=== PATIENT | male | born 1940 | race Caucasian/White ===

== ENCOUNTER 2021-07-25 00:54 | Outpatient (RCR) | payer MEDICARE, SELFPAY ==
[2021-07-04 07:39] LABS: Abs Immature Grans 0.02 10^3/uL (0.0-0.06); Absolute Basophil Count 0.05 10^3/uL (0.0-0.2); Absolute Eosinophil Count 0.15 10^3/uL (0.0-0.7); Absolute Lymphocyte Count 1.97 10^3/uL (1.2-3.4); Absolute Monocyte Count 0.91 10^3/uL (0.1-0.8); Absolute Neutrophil Count 5.23 10^3/uL (1.2-6.7); Basophils % 0.6; Eosinophils % 1.8; HCT 47.4 % (40.0-50.0); HGB 15.1 g/dL (13.5-17.5); Immature Grans % 0.2; Lymphocytes % 23.6; MCH 32.3 pg (27.0-33.0); MCHC 31.9 % (32.0-36.0); MCV 101.5 fL (80-95); MPV 10.6 fL (8.0-11.0); Monocytes % 10.9; Neutrophils % 62.9; Nucleated RBC 0 %; Platelet Count 228 10^3/uL (130-400); RBC 4.67 10^6/uL (4.36-5.78); RDW 12.7 % (11.8-14.1); RDW-SD 47.8 fL; WBC 8.33 10^3/uL (4.4-10.8)
[2021-07-04 07:50] LABS: ALT 31 U/L (16-63); AST 24 U/L (15-37); Albumin 3.6 g/dL (3.4-5.0); Alkaline Phosphatase 125 U/L (46-116); Anion Gap 6.7 mmol/L (3-11); BUN 16 mg/dL (7-18); Bilirubin, Total 1.3 mg/dL (0.2-1.0); CO2 28.3 mmol/L (21.0-32.0); CREATININE 1.1 mg/dL (0.70-1.30); Chloride 108 mmol/L (98-107); Glucose 109 mg/dL (74-106); Magnesium 1.9 mg/dL (1.8-2.4); Potassium 3.9 mmol/L (3.5-5.1); Sodium 143 mmol/L (136-145); Total Protein 7.3 g/dL (6.4-8.2)
[2021-07-11] MEDS: Normal Saline Flush 10 ML SYR IVP (09:00)
[2021-07-11 09:21] LABS: Abs Immature Grans 0.07 10^3/uL (0.0-0.06); Absolute Basophil Count 0.03 10^3/uL (0.0-0.2); Absolute Eosinophil Count 0.09 10^3/uL (0.0-0.7); Absolute Lymphocyte Count 0.52 10^3/uL (1.2-3.4); Absolute Neutrophil Count 3.25 10^3/uL (1.2-6.7); Basophils % 0.7; Eosinophils % 2.2; HCT 44.2 % (40.0-50.0); HGB 14.5 g/dL (13.5-17.5); Immature Grans % 1.7; Lymphocytes % 12.5; MCH 33.3 pg (27.0-33.0); MCHC 32.8 % (32.0-36.0); MCV 101.4 fL (80-95); MPV 10.9 fL (8.0-11.0); Monocytes % 4.8; Neutrophils % 78.1; Nucleated RBC 0 %; Platelet Count 205 10^3/uL (130-400); RBC 4.36 10^6/uL (4.36-5.78); RDW 12.2 % (11.8-14.1); RDW-SD 46.3 fL; WBC 4.16 10^3/uL (4.4-10.8)
[2021-07-11 09:43] LABS: ALT 24 U/L (16-63); AST 8 U/L (15-37); Albumin 3.5 g/dL (3.4-5.0); Alkaline Phosphatase 112 U/L (46-116); Anion Gap 5.9 mmol/L (3-11); BUN 17 mg/dL (7-18); Bilirubin, Total 1.6 mg/dL (0.2-1.0); CO2 29.1 mmol/L (21.0-32.0); Calcium 8.7 mg/dL (8.5-10.1); Chloride 107 mmol/L (98-107); Glucose 102 mg/dL (74-106); Magnesium 1.9 mg/dL (1.8-2.4); Potassium 4.8 mmol/L (3.5-5.1); Sodium 142 mmol/L (136-145); Total Protein 7.1 g/dL (6.4-8.2)
[2021-07-18] MEDS: Normal Saline Flush 10 ML SYR IVP (09:02)
[2021-07-18 09:08] LABS: Abs Immature Grans 0.02 10^3/uL (0.0-0.06); Absolute Basophil Count 0.02 10^3/uL (0.0-0.2); Absolute Eosinophil Count 0.05 10^3/uL (0.0-0.7); Absolute Lymphocyte Count 0.42 10^3/uL (1.2-3.4); Absolute Monocyte Count 0.16 10^3/uL (0.1-0.8); Absolute Neutrophil Count 0.62 10^3/uL (1.2-6.7); Basophils % 1.6; Eosinophils % 3.9; HCT 46.1 % (40.0-50.0); Immature Grans % 1.6; Lymphocytes % 32.6; MCH 32.8 pg (27.0-33.0); MCHC 32.5 % (32.0-36.0); MCV 100.7 fL (80-95); MPV 10.6 fL (8.0-11.0); Monocytes % 12.4; Neutrophils % 47.9; Nucleated RBC 0 %; RBC 4.58 10^6/uL (4.36-5.78); RDW 11.9 % (11.8-14.1); RDW-SD 44.6 fL
[2021-07-18 09:16] LABS: WBC 1.29 10^3/uL (4.4-10.8)
[2021-07-18 09:27] LABS: Diff Comment Agrees w/ Instrument; Platelet Count 198 10^3/uL (130-400)
[2021-07-18 09:28] LABS: RBC Morphology Normal
[2021-07-18 09:33] LABS: ALT 25 U/L (16-63); AST 26 U/L (15-37); Albumin 3.7 g/dL (3.4-5.0); Alkaline Phosphatase 122 U/L (46-116); Anion Gap 9.1 mmol/L (3-11); BUN 14 mg/dL (7-18); Bilirubin, Total 1.7 mg/dL (0.2-1.0); CO2 27.9 mmol/L (21.0-32.0); Calcium 8.9 mg/dL (8.5-10.1); Chloride 107 mmol/L (98-107); Glucose 85 mg/dL (74-106); Magnesium 1.7 mg/dL (1.8-2.4); Potassium 4.1 mmol/L (3.5-5.1); Sodium 144 mmol/L (136-145); Total Protein 7.8 g/dL (6.4-8.2)
[2021-07-25 08:45] LABS: Abs Immature Grans 0.01 10^3/uL (0.0-0.06); Absolute Basophil Count 0.04 10^3/uL (0.0-0.2); Absolute Eosinophil Count 0.02 10^3/uL (0.0-0.7); Absolute Lymphocyte Count 0.49 10^3/uL (1.2-3.4); Absolute Monocyte Count 0.69 10^3/uL (0.1-0.8); Absolute Neutrophil Count 1.12 10^3/uL (1.2-6.7); Basophils % 1.7; Eosinophils % 0.8; HCT 42.1 % (40.0-50.0); HGB 13.5 g/dL (13.5-17.5); Immature Grans % 0.4; Lymphocytes % 20.7; MCH 32.8 pg (27.0-33.0); MCHC 32.1 % (32.0-36.0); MCV 102.2 fL (80-95); MPV 9.4 fL (8.0-11.0); Monocytes % 29.1; Neutrophils % 47.3; Nucleated RBC 0 %; Platelet Count 237 10^3/uL (130-400); RBC 4.12 10^6/uL (4.36-5.78); RDW 13.2 % (11.8-14.1); RDW-SD 47.9 fL; WBC 2.37 10^3/uL (4.4-10.8)
[2021-07-25 08:56] LABS: ALT 23 U/L (16-63); AST 21 U/L (15-37); Albumin 3.5 g/dL (3.4-5.0); Alkaline Phosphatase 98 U/L (46-116); Anion Gap 8.7 mmol/L (3-11); BUN 11 mg/dL (7-18); Bilirubin, Total 0.9 mg/dL (0.2-1.0); CO2 27.3 mmol/L (21.0-32.0); Calcium 8.9 mg/dL (8.5-10.1); Chloride 112 mmol/L (98-107); Glucose 84 mg/dL (74-106); Magnesium 1.7 mg/dL (1.8-2.4); Sodium 148 mmol/L (136-145); Total Protein 6.9 g/dL (6.4-8.2)
== END 2021-07-31 23:59 | disposition home or self-care (01) ==
LOC: INF 00:54
PROVIDERS: PCP Family Medicine; Visit Provider Internal Medicine Medical Oncology
DX: C34.11 Malignant neoplasm of upper lobe, right bronchus or lung (principal)
CPT/HCPCS: 36415; 80053; 99195; 83735; 85025

== ENCOUNTER 2021-07-25 09:01 | Emergency (ER) | payer MEDICARE, SELFPAY ==
[2021-07-25] VITALS (33 sets, daily range): BP systolic 124–146; BP diastolic 74–105; PULSE 84–129; RESP 11–24; TEMP 36.3; O2SAT 91–100
--- NOTE | 2021-07-25 09:00 | RT.EKG_ITS ---
APPROVED REPORT Exam: Resting ECG Reason for Exam: irregular heart rate Patient Location: E HR:126 bpm ECG Measurements Heart Rate 126 AXIS NJ 59 P 113 QRSd 168 QRS 85 QT 420 T -55 QTc 609 Conclusion Sinus tachycardia...rate> 99 Right bundle branch block...QRSd>120, terminal axis(90,270) likely a-flutter at 126, normal axis, RBBB, no STEMI
--- OUTSIDE RECORDS SUMMARY | 2021-07-25 09:12 | XMS_ITS ---
:1940 Author Care Team Providers Name Role Phone KEVIN MORALES MD Primary Care Provider [phone] Allergies Code Code System Name Reaction Severity Status Onset NKDA ? Medications Name Status Start Date Stop Date ? ? alprazolam 0.5 mg tablet Active ? Not jacquelin ilable Take 1 tablet twice a day by oral route. amlodipine 5 mg tablet Completed ? Take 1 tablet every day by oral route. atorvastatin 40 mg tablet Active ? Not av ailable Take 1 tablet every day by oral route. B Complex Plus Vitamin C Active ? Not jacquelin ilable Take 1 tablet every day by oral route Marcelo Chewable Low Dose Aspirin 81 mg tablet Active ? Not available Chew 1 tablet every day by oral route. Co Q-10 200 mg capsule Active ? Not avail able Take 1 capsule every day by oral route. Eliquis 5 mg tablet Unknown ? Not availabl e Take 1 tablet twice a day by oral route. folic acid 400 mcg tablet Active ? Not av ailable Take 1 tablet every day by oral route. Laxative Completed ? 03/18/2021 melatonin 10 mg tablet Active ? Not avail able Take 1 tablet every day by oral route at bedtime. metoprolol succinate ER 25 mg tablet,extended release 24 hr Acti ve ? Not available Take 1 tablet twice a day by oral route. omeprazole 20 mg capsule,delayed release Active ? Not available Take 1 capsule every day by oral route. propranolol 80 mg tablet Active ? Not jacquelin ilable Take 1 tablet every day by oral route. sennosides 25 mg tablet Active ? Not avai lable Take 1 tablet every day by oral route. Vitamin D3 Active ? Not available vitamin E 400 unit capsule Active ? Not a vailable Take 1 capsule every day by oral route. warfarin 5 mg tablet Completed ? 03/17/2021 Take as directed Xarelto 20 mg tablet Active ? Not availab le TAKE 1 TABLET BY MOUTH EVERY DAY Notes: Med rec completed from pt records from 02/11/2021 as well as from home medications brought in by pts son. Problems Name Status Onset Date Source ? Atrial Flutter Active 03/15/2021 ? Hyperlipidemia Active 03/17/2021 ? Insomnia Active 03/17/2021 ? Essential Hypertension Active 03/17/2021 ? Gastroesophageal Reflux Disease Active 03/17/2021 ? Non-small Cell Lung Cancer Active 06/30/2021 ? Procedures Date Name Performed by ? 10/01/1970 Appendectomy Information not avai lable 03/10/2020 XR, Foot, 3 or More View [facility] Radiology (Internal) [address], [place] [id number] (Work Place) 04/21/2020 XR, Foot, 3 or More View [facility] Radiology (Internal) [address] [place] [id number] ( (Work Place) 03/17/2021 Electrocardiogram [facility] [address] [facility] [address] [place] [address] (Work Place) 03/17/2021 CT, Chest, W/ Contrast [facility] (Internal) [address] [place] [id number] (Work Place) Results Lab Results Date Name Specimen Result Interpretation Description Value Range Status Address ? 03/14/2021 CBC W/ Auto BLD High Wbc 10.9 10*3/uL 5.0-10.0 Final North Diff 10*3/uL [facility] (Internal) : [address] ? ? BLD ? Rbc 4.63 10*6/uL 4.60-6.00 Final N orth 10*6/uL [facility] (Internal) : [address] ? ? BLD ? Hgb 15.2 g/dL 14.0-18.0 Final Nort h g/dL [facility] (Internal) : [address] ? ? BLD ? Hct 46.0 % 41.0-51.0 Final [facility] (Internal) : [address] ? ? BLD High Mcv 99.4 fL 80.0-96.0 Final North fL [facility] (Internal) : [address] ? ? BLD High Mch 32.8 pg 26.0-32.0 Final North pg [facility] (Internal) : [address] ? ? BLD ? Mchc 33.0 g/dL 31.0-35.0 Final Nort h g/dL [facility] (Internal) : [address] ? ? BLD ? Rdw 12.3 % 11.5-14.5 Final North % [facility] (Internal) : [address] ? ? BLD ? Plt 230 10*3/uL 130-450 Final Nort h 10*3/uL [facility] (Internal) : [address] t 03/14/2021 CMP, Serum S ? g/r 104 mg/dL 74-106 Final North or Plasma mg/dL [facility] (Internal) : [address] ? ? S ? Bun 13 mg/dL 9-20 Final North mg/dL [facility] (Internal) : [address] ? ? S ? Crea 0.80 mg/dL 0.66-1.25 Final Nor th mg/dL [facility] (Internal) : [address] t ? ? S ? Ca 9.6 mg/dL 8.4-10.2 Final North mg/dL [facility] (Internal) : [address] t ? ? S ? Na 142 mmol/L 137-145 Final North mmol/L [facility] (Internal) : [address] t ? ? S ? K 4.6 mmol/L 3.5-5.1 Final [place] mmol/L [facility] (Internal) : [address] t ? ? S ? Cl 104 mmol/L 98-107 Final [place] mmol/L [facility] (Internal) : [address] t ? ? S ? Tco2 28.0 mmol/L 22.0-30.0 Final No rth mmol/L [facility] (Internal) : [address] t ? ? S ? Tp 7.7 g/dL 6.3-8.2 Final North g/dL [facility] (Internal) : [address] t ? ? S ? Alb 4.2 g/dL 3.5-5.0 Final [place] g/dL [facility] (Internal) : [address] ? ? S High Tbil 2.4 mg/dL 0.2-1.3 Final [place] mg/dL [facility] (Internal) : [address] t ? ? S ? Alp 117 U/L 38-126 Final [facility] U/L [facility] (Internal) : [address] t ? ? S ? Alt 22 U/L 21-72 U/L Final [facility] (Sgpt) [facility] (Internal) : [address] t ? ? S ? Ast 35 U/L 17-59 U/L Final [facility] (Sgot) [facility] (Internal) : [address] 03/14/2021 Prothrombin BLD ? Pt 82.1 S 9.1-11.7 Final [facility] Time S [facility] (Internal) : [address] ? ? BLD ? Inr 8.14 ? Final [facility] ab (Internal) : [address] 03/14/2021 Differentia BLD ? Polys 67 % 40-75 % Final [facility], Manual, Countr y Blood Hospital L ab (Internal) : [address] ? ? BLD ? Bands 0 % 0-5 % Final [facility] ab (Internal) : [address] ? ? BLD Low Lymphs 15 % 20-50 % Final [facility] (Internal) : [address] ? ? BLD High [place] 16 % 2-10 % Final [facility] ab (Internal) : [address] ? ? BLD ? Eos 2 % 0-6 % Final [facility] (Internal) : [address] ? ? BLD ? Baso 0 % 0-1 % Final [facility] ab (Internal) : [address] ? ? BLD ? Atyp 0 % ? Final [facility] Lymph [facility] (Internal) : [address] ? ? BLD ? Plts, adequate adequate Final [facility] Est. [facility] (Internal) : [address] ? ? BLD ? RBC normal normal Final [facility] Morpholog [facility] (Internal) : [address] 03/14/2021 Neutrophil BLD ? Anc-manu 7.33 10*3/uL ? Final [facility] Count, al [facility] Absolute Hospital Lab (Anc), (Internal) : Blood [address] 03/14/2021 Nlr-manual BLD High Nlr - 4.47 0.00-3.20 Final [facility] Manual [facility] (Internal) : [address] 03/14/2021 Troponin I, S ? Trop <0.06 NG/mL 0.00-0.06 Final [facility] Serum or NG/mL [facility] Plasma Hospital L ab (Internal) : [address] 03/14/2021 BNP (B-type S High Nt-probn 683 pg/mL 0-450 Fi nal [facility] Natriuretic p pg/mL Count ry Peptide), Hospita l Lab Prohormone (Inter nal): N-terminal, [address], [place] Immunoassay , Blood 03/14/2021 Urinalysis, UR ABNORMAL UA-color bloody pale Fin [facility] Dipstick, yellow [facility] L [facility] Micro (Internal) : [address] ? ? UR ABNORMAL UA-appea cloudy clear Final [facility] L ab (Internal) : [address] 03/14/2021 Urinalysis, UR ABNORMAL UA-WBC 10-25 [hpf] 0-3 [hp f] Final [facility] Microscopic Count ry Hospital L ab (Internal) : [address] ? ? UR ABNORMAL UA-RBC >100 [hpf] 0-2 [hpf] Final [facility] L ab (Internal) : [address] ? ? UR ? UA-bacte rare [hpf] none seen Final [facility] katy [hpf] [facility] L [facility] (Internal) : [address] ? ? UR ? UA-epith rare [hpf] none seen Final [facility] [hpf] [facility] L ab (Internal) : [address] ? ? UR ABNORMAL UA-mucus rare [hpf] none seen Final [facility] [hpf] [facility] L [facility] (Internal) : [address] 03/14/2021 Prothrombin BLD High Pt 12.0 S 9.1-11.7 Final [facility] Hospital L ab (Internal) : [address] ? ? BLD ? Inr 1.2 ? Final [facility] ab (Internal) : [address] 03/14/2021 EKG Done by ? No ? ? ? N orth ED observati [facility] recorded. (Major Account Manager al): [address] 03/14/2021 Culture UR ? Final microbiology ? [facility] ([place] [facility]), Hospital Lab Urine (Internal) : [address] Past Encounters 06/29/2021 Essential Hypertension; Anxiety; Atrial Fibrillation; Non-small Cell Lung Cancer Kevin Morales MD: [address] [place] [phone], Ph. 04/28/2021 Lesion of Skin of Left Ear; Essential Hy pertension; Atrial Flutter Kevin Morales MD: [address] [place] [phone], Ph. 03/23/2021 Atrial Flutter; Low Blood Pressure; Dom jill of Left Ear Kevin Morales MD: [address] [place] [phone], Ph. 03/17/2021 Atrial Flutter; Hemoptysis; Pneumonia; T achycardia Kevin Morales MD: [address] [place] [phone], Ph. 04/21/2020 Pain in Right Foot RANDALL BasurtoC: [address] [place] [address], [facility], [place] [phone], Ph. 03/10/2020 Injury of Foot Beverley Ayala PA-C: [address] [place] [address] [address], [address], [place] [phone], Ph. Social History Tobacco Smoking Status Former Smoker Notes: quit 20 10 Vaccine List Vaccine Type COVID-19, mRNA, LNP-S, PF, 100 mcg/0.5 m L dose 11/30/2020 12/28/2020 influenza, seasonal, injectable 06/10/2020 pneumococcal conjugate PCV 13 03/10/2016 Plan of Care Reminders Provider Appointments None ? ? recorded. Lab None ? ? recorded. Referral None ? ? recorded. Procedures None ? ? recorded. Surgeries None ? ? recorded. Imaging None ? ? recorded. Vitals 06/29/2021 01:40PM Follow Up 20 Height Weight BMI Blood Pressure 175.26 cm 102.77 kg 33.5 kg/m2 120/70 mm[Hg] 04/28/2021 01:20PM Follow Up 20 Height Weight BMI Blood Pressure 175.26 cm 103.43 kg 33.7 kg/m2 120/74 mm[Hg] 03/23/2021 01:40PM Follow Up 20 Height Weight BMI Blood Pressure 175.26 cm 101.24 kg 33 kg/m2 110/70 mm[Hg] 03/17/2021 01:20PM New Patient 40 Height Weight BMI Blood Pressure 175.26 cm 102.51 kg 33.4 kg/m2 118/88 mm[Hg] 04/21/2020 11:00AM Follow Up 15 Height Weight BMI Blood Pressure 175.26 cm 03/10/2020 09:00AM Consult 30 Height Weight BMI Blood Pressure 175.26 cm 101.6 kg 33.1 kg/m2 128/74 mm[Hg]
--- OUTSIDE RECORDS SUMMARY | 2021-07-25 09:12 | XMS_ITS | Encounter Summary ---
:1940 Author Care Team Providers Name Role Phone Kevin Morales MD Primary Care Provider [phone] Reason for Visit Essential hypertension; Hyperlipidemia; reflux/GERD Assessment and Plan 1. Essential hypertension Stable off amlodipine 2. Anxiety Well-controlled on current reg imen. ? alprazolam 0.5 mg tablet 3. Atrial fibrillation Tachycardia noted. Patient is not sure what he is actually taking for medication. He was advised to increase m etoprolol to twice daily ? metoprolol succinate ER 25 mg tablet,extended release 24 hr 4. Non-small cell lung cancer Appreciate radiation oncology consultation Discussion Note: None recorded.Patient educational handouts: No information available. Plan of Care Reminders Provider Appointments None ? ? recorded. Lab None ? ? recorded. Referral None ? ? recorded. Procedures None ? ? recorded. Surgeries None ? ? recorded. Imaging None ? ? recorded. Medications Name Start Date ? ? alprazolam 0.5 mg tablet ? Take 1 tablet twice a day by oral route. atorvastatin 40 mg tablet ? Take 1 tablet every day by oral route. B Complex Plus Vitamin C ? Take 1 tablet every day by oral route Marcelo Chewable Low Dose Aspirin 81 mg tablet ? Chew 1 tablet every day by oral route. Co Q-10 200 mg capsule ? Take 1 capsule every day by oral route. folic acid 400 mcg tablet ? Take 1 tablet every day by oral route. melatonin 10 mg tablet ? Take 1 tablet every day by oral route at bedtime. metoprolol succinate ER 25 mg tablet,extended release 24 hr ? Take 1 tablet twice a day by oral route. omeprazole 20 mg capsule,delayed release ? Take 1 capsule every day by oral route. propranolol 80 mg tablet ? Take 1 tablet every day by oral route. sennosides 25 mg tablet ? Take 1 tablet every day by oral route. Vitamin D3 ? vitamin E 400 unit capsule ? Take 1 capsule every day by oral route. Xarelto 20 mg tablet ? TAKE 1 TABLET BY MOUTH EVERY DAY Notes: Med rec completed from pt records from 02/11/2021 as well as from home medications brought in by pts son. Medications Administered None recorded. Vitals Height Weight BMI Blood Pressure 5 ft 9 in 226 lbs 9 oz 33.5 kg/m2 120/70 mm[Hg] Results Lab Results None recorded. Allergies Code Code System Name Reaction Severity Onset NKDA ? ? ? Problems Name Status Onset Date Source ? Atrial Flutter Active 03/15/2021 ? Hyperlipidemia Active 03/17/2021 ? Insomnia Active 03/17/2021 ? Essential Hypertension Active 03/17/2021 ? Gastroesophageal Reflux Disease Active 03/17/2021 ? Non-small Cell Lung Cancer Active 06/30/2021 ? Procedures Date Name Performed by ? 10/01/1970 Appendectomy Information not avai lable Vaccine List Vaccine Type COVID-19, mRNA, LNP-S, PF, 100 mcg/0.5 m L dose 11/30/2020 12/28/2020 influenza, seasonal, injectable 06/10/2020 pneumococcal conjugate PCV 13 03/10/2016 Social History Tobacco Smoking Status Former Smoker Notes: quit 20 10 Animal exposure? N Which of your hands is dominant? Right What is your level of alcohol Heavy Notes: 21 drinks per week consumption? Live alone or with others? with others Notes: spo use Have you used IV drugs? N Are you blind or do you have N difficulty seeing? What is your code status? 0 Hard of hearing or deaf in one or N both ears? What is your level of caffeine Moderate Notes: 2 servings of caffeine consumption? per day Are there any guns present in your N home? What is your occupation? Retired What is your exercise level? None Family History Relation Problem Onset Age of Age Notes Father Heart disease (No N/A (No Notes) Information) Mother Family history of (No N/A (No Notes) cancer of colon Information) Sister Family history of (No N/A unspecifie d type cancer Information) Brother Family history of (No N/A unspecifie d type cancer Information) Functional Status No Impairment. Past Encounters 06/29/2021 Essential Hypertension; Anxiety; Atrial Fibrillation; Non-small Cell Lung Cancer Kevin Morales MD: [address] [place] [phone], Ph. History of Present Illness ? Hypertension F/U Reported By: Patient HPI: Medications: taking medicati ons as directed; BP today was 120/70, P 119. Lifestyle: not exercising re gularly. Associated Symptoms: no dizziness, no lightheadedness, no chest pain, no palpitations, no calf pain with exertion, no headache, short ness of breath, edema; SOB with exesion Note: <div>06/29/2021: Pt reports he has lung cancer and will start treatment 07-04-2021 at the [facility] in [facility]. [place] has spread to one lymph node pt reported. Radiation and Chemo for 6 weeks - 5 days a week. </div><div>
</div><div>03/2021: Discontinuation of amlodipine advised in the setting of hypotension. Medication should be more directed to rate control</div> Review of Systems ? Notes: <p>Review of systems as prev iously described and otherwise negative for 10 organ systems</p> Physical Exam ? Notes: <p>General: Alert. Not in ac christian distress.
HEENT: NCAT. No Nystagmus. Pupils equal, round and reactive.<b r>Neck: Without adenopathy or thyromegaly, Trachea midline.
Cardiopulmonary: No cardiopulmonary distress
Abdomen: Soft, nondistended, nontender.
Peripheral Vascular: No edema.
Neurologic: Awake alert and oriented. Cr anial nerves II-XII intact. EOMI.
Musculoskeletal: No rmal range of motion.
Skin: Normal Moisture. Warm.
Lymphatic: No ap preciated adenopathy
Psychiatric: Appropriate</p>
--- OUTSIDE RECORDS SUMMARY | 2021-07-25 09:12 | XMS_ITS | Encounter Summary ---
:1940 Author Care Team Providers Name Role Phone Kevin Morales MD Primary Care Provider [phone] Reason for Visit Bilateral ear problem Assessment and Plan 1. Lesion of skin of left ear Persistent nonhealing lesion o f the ear concerning for malignancy. Given its location and sensitivity will refer to dermatology for further evaluation and treatment ? ground transportation operator referral 2. Essential hypertension Stable off amlodipine 3. Atrial flutter Rate better controlled with re sumption of metoprolol and propranolol. Continue current regimen Discussion Note: None recorded.Patient educational handouts: No information available. Plan of Care Reminders Provider Appointments None recorded. ? ? Lab None recorded. ? ? Referral [employer] Dispatcher Santa Pierson Referral 04/28/2021 Procedures None recorded. ? ? Surgeries None recorded. ? ? Imaging None recorded. ? ? Medications Name Start Date ? ? alprazolam [...] BMI Blood Pressure 5 ft 9 in 228 lbs 0.5 oz 33.7 kg/m2 120/74 mm[Hg] Results Lab Results None recorded. Allergies [...] Information) Functional Status No Impairment. Past Encounters 04/28/2021 Lesion of Skin of Left Ear; Essential Hy pertension; Atrial Flutter Kevin Morales MD: [address] [place] [phone], Ph. History of Present Illness ? Skin Lesion Reported By: Patient HPI: Location: ; left ear has a s cab in just inside the ear. Quality: ; No pain. Severity: mild. Durati on: started month(s) ago; 1.5 months. Onset/Timing: ; Pt thinks it is caused by a day in the sun. Context: no known trigger. Alleviating F actors: antibiotic ointment. Associated Symptoms: no fever, no nause a, no vomiting, no diarrhea, no urinary symptoms, no skin flakes ? Hypertension F/U Reported By: Patient HPI: Medications: ; Amlodipine st opped on 03/23/2021. BP today Note: <div>04/28/2021: Follow up for abrasion of left ear and stopping amlodipine/BP. </div&gt ;<div>
</div><div>03/23/2021: abrasion of left ear
</div><div>Patient is uncertain of any trauma. Could possibly be basal cell carcinoma although he has been putting plastic Band-Aid on it which may give it some pearly appearance. Since its only been there for 2 weeks, continue to observe and consider biopsy if failure to improve</div><div>low blood pressure</div><div>
</div><div>Discontinuation of amlodipineadvised in the setting of hypotension. Medication should [...]
Musculoskeletal: No rmal range of motion.
Skin: Left ear with a 3 x 5 mm erythematous patch at t he superior aspect without evidence of infection and without purulence or leonid inage. Right ear with coarse texture over the top
Lymphatic: No appreci ated adenopathy
Psychiatric: Appropriate</p>
--- NOTE | 2021-07-25 09:45 | DI.RAD_ITS ---
Exam(s) XR CHEST 2V PA LATERAL EXAM: XR CHEST 2V PA LATERAL CLINICAL HISTORY: tachycardia. TECHNIQUE: 2D digital imaging was performed. COMPARISON: No exams were available for comparison FINDINGS: Heart size is upper normal. The mediastinum is not widened. There are pleural base infiltrates bilaterally. Also right lung nodules. No pleural effusions. IMPRESSION: Significant bilateral lung findings including pleural based and non pleural base nodules. No pleural effusions. Recommend CT scan. DATA REPOSITORY: RADIATION DOSE DELIVERED:
[2021-07-25 09:52] LABS: ALT 29 U/L (16-63); AST 24 U/L (15-37); Albumin 3.4 g/dL (3.4-5.0); Alkaline Phosphatase 97 U/L (46-116); Anion Gap 6.7 mmol/L (3-11); BUN 13 mg/dL (7-18); Bilirubin, Total 0.8 mg/dL (0.2-1.0); CO2 29.3 mmol/L (21.0-32.0); Calcium 8.7 mg/dL (8.5-10.1); Chloride 111 mmol/L (98-107); Glucose 97 mg/dL (74-106); Magnesium 1.6 mg/dL (1.8-2.4); NT-proBNP 1861 pg/mL (<300); Sodium 147 mmol/L (136-145); TSH 1.09 uIU/mL (0.36-3.74); Total Protein 6.7 g/dL (6.4-8.2)
[2021-07-25] MEDS: Metoprolol 25 MG TAB PO (09:58)
[2021-07-25 09:59] LABS: Troponin I < 0.05 ng/mL (<0.06)
--- NOTE | 2021-07-25 10:02 | ED.GENADUL_ITS ---
Discharge Plan Disposition Patient Disposition: HOME Condition: Stable Discharge Details Clinical Impression: Atrial flutter, Acute UTI Primary Care Provider: Kevin Morales ED Provider: Yael Rodas Home Meds and New Rx's Prescriptions: New cephalexin 500 mg capsule 500 mg PO Q6H 7 Days Qty: 28 RF: 0 Continued atorvastatin 40 mg Tablet 40 mg PO DAILY RF: 0 alprazolam 0.5 mg Tablet 0.5 mg PO BID RF: 0 omeprazole 20 mg Capsule,Delayed Release(Dr/Ec) 20 mg PO DAILY RF: 0 metoprolol succinate 25 mg Tablet Extended Release 24 Hr 25 mg PO DAILY RF: 0 Xarelto 20 mg Tablet 20 mg PO DAILY RF: 0 Discharge Instructions Instructions: Urinary Tract Infection in Men (ED) Additional Instructions: Please follow-up with your primary care physician tomorrow, let them know you were in the emergency room Take Keflex as prescribed Yogurt daily while on antibiotic For urinary tract infection, you will take it every 6 hours Continue on your Xarelto and increase your metoprolol to 50 mg a day, you have only been taking 25 mg daily You will need to follow-up with it project coordinator, I would call them when you arrive home to schedule an appointment You will also need to call your doctor tomorrow to be reevaluated this week Please return immediately should you have weakness, dizziness, chest pain, shortness of breath, fever, chills, or with any new or worsening complaints Referrals: Kadi Martinez MD [ [facility] STAFF PHYSICIAN] - Kevin Morales [Primary Care Provider] - Discharge Data Discharge Date/Time-TO BE ENTERED AT DEPARTURE: 07/25/21 12:29 Medical Decision Making Patient is in no acute distress, he has not hypoxic, initially he was in atrial flutter, this is now rate controlled at [address] Martinez and feels patient is stable for discharge home, aware that patient is in possible CHF, he has not hypoxic or dyspneic on exertion, he is ambulatory without dyspnea or hypoxia His BNP is elevated to 1800 although chest x-ray does not show evidence of volume overload Patient feels comfortable with discharge home, will increase metoprolol He does have a urinary tract infection, will treat with Keflex and urine cultures pending He will need close outpatient follow-up with his doctor Dr. Dobbertin as patient has outpatient follow-up He will likely need an outpatient echocardiogram at the discretion of cardiology I did specifically ask about diuretic and Dr. Martinez does not feel this is necessary at this time Patient is in rate controlled a flutter, he is appropriately anticoagulated His neuro exam is nonfocal and he is ambulatory with steady gait Is completely alert, oriented, of decisional capacity, he is aware that he must continue Xarelto he must follow-up with cardiology, referral has been placed You will need to see his primary care physician in the past outpatient follow-up as well HPI General Mode of arrival: ambulatory . Date/Time Provider Initiated Documentation: 07/25/21 09:03 . Limitations to Documentation: no limitations . Information obtained by: patient . HPI Narrative: This 81-year-old gentleman presents with past medical history of atrial fibrillation, GERD, hyperlipidemia, non-small cell lung cancer at the request of cancer center. Reportedly patient was tachycardic with some peripheral edema upon assessment. He is currently asymptomatic and cannot tell that he is in atrial fibrillation. Specifically he denies any weight gain, edema, chest pain, shortness of breath, or notable tachycardia. He is taking all medications as prescribed including his Xarelto. His it project coordinator is currently in [place]. He reportedly has been in [place] and July of last year. Denies any orthopnea. Unsure of his last echocardiogram. Denies any upper respiratory symptoms. Fully Covid vaccinated. Denies any recent flights, surgeries, long drives. Denies pleuritic chest pain or hemoptysis. Related Data Home Medications Medication Instructions Recorded Confirmed Xarelto 20 mg PO DAILY 07/25/21 07/25/21 alprazolam 0.5 mg PO BID 07/25/21 07/25/21 atorvastatin 40 mg PO DAILY 07/25/21 07/25/21 cephalexin 500 mg PO Q6H 7 Days #28 cap 07/25/21 metoprolol succinate 25 mg PO DAILY 07/25/21 07/25/21 omeprazole 20 mg PO DAILY 07/25/21 07/25/21 Previous Rx's Medication Instructions Recorded cephalexin 500 mg PO Q6H 7 Days #28 cap 07/25/21 Allergies Allergy/AdvReac Type Severity Reaction Status Date / Time No Known Allergies Allergy Unverified 07/25/21 09:10 General Stated Complaint: Palpitatns LUNAA: 2 Review of Systems All systems reviewed & are unremarkable except as noted in HPI and below PFSH Social History Smoking/Tobacco Use Status: Former Tobacco Use Smoking risk assessment performed?: Yes Alcohol Intake: current Alcohol Intake frequency: a few times a month Substance use type: does not use Do you feel safe at home: Yes Do you feel safe in your relationship?: Yes Exam Const General: cooperative and comfortable Resp Effort & Inspection: normal respiratory effort Auscultation: clear to auscultation bilaterally Cardio Rate: tachycardic Rhythm: regular rhythm GI Inspection: normal to inspection Rectal Exam: visual inspection normal Skin General skin exam: no rashes or lesions noted Neuro General: patient alert and patient oriented x3 Cranial Nerves: CN's II-XI intact bilaterally and PERRL Gait: normal gait Motor: strength 5/5 throughout Sensory Exam: no sensory deficits noted Extrem Other: 1+ edema to bilateral lower extremities Course Vital Signs Vital signs: Vital Signs Pulse 127 H 07/25/21 09:05 Blood Pressure 141/97 H 07/25/21 09:05 Temperature 36.3 C L 07/25/21 09:07 Temperature Source Temporal Artery Scan 07/25/21 09:07 Pulse 125 H 07/25/21 09:30 Respiratory Rate 16 07/25/21 09:07 Respiratory Effort Non-Labored 07/25/21 09:10 Blood Pressure 133/92 H 07/25/21 09:30 Blood Pressure Position Supine 07/25/21 09:07 Pulse Oximetry 98 07/25/21 09:07 Oxygen Delivery Method Room Air 07/25/21 09:07 Oxygen Flow Rate 0 07/25/21 09:07 Pain Level 0 07/25/21 09:07 Lab/Test Results Lab/Test Results: Laboratory Tests Range/Units 07/25/21 09:15 Sodium (136-145) mmol/L 147 H Potassium (3.5-5.1) mmol/L 4.0 Chloride (98-107) mmol/L 111 H Carbon Dioxide (21.0-32.0) mmol/L 29.3 Anion Gap (3-11) mmol/L 6.7 BUN (7-18) mg/dL 13 Creatinine (0.70-1.30) mg/dL 1.0 Estimated GFR/1.73 m2 (mL/min/1.73m2) >= 60.00 Glucose (74-106) mg/dL 97 Calcium (8.5-10.1) mg/dL 8.7 Magnesium (1.8-2.4) mg/dL 1.6 L Total Bilirubin (0.2-1.0) mg/dL 0.8 AST (15-37) U/L 24 ALT (16-63) U/L 29 Alkaline Phosphatase (46-116) U/L 97 Troponin I (<0.06) ng/mL < 0.05 NT-Pro-B Natriuret Pep (<300) pg/mL 1861 H Total Protein (6.4-8.2) g/dL 6.7 Albumin (3.4-5.0) g/dL 3.4 TSH (0.36-3.74) uIU/mL 1.09 PAWSS Have you Been Recently Intoxicated or Drunk Within the Last 30 days?: No Have you Ever Experienced Previous Episodes of Alcohol Withdrawal?: No Have you ever Experienced Withdrawal Seizures?: No Have you ever Experienced Delirium Tremens(DT)s?: No Have you ever undergone Alcohol Rehabilitation Treatment (i.e, inpt ot outpatient treatment programs)?: No Have you ever Experienced Blackouts?: No Have you ever Combined Alcohol with other Downers within the last 90 days?: No Have you ever Combined Alcohol with any other Substance of Abuse during the last 90 days?: No Positive Blood Alcohol level on Presentation? [PCS.BAL]: No Evidence of Increased Autonomic Activity (i.e. HR>120, tremor, sweating, agitation, nausea)?: No Result: 0
[2021-07-25] MEDS: MAGNESIUM SULFATE 1 GM/100 ML BAG IVPB (10:18)
[2021-07-25 11:30] LABS: Bilirubin Negative (Negative); Blood Moderate (Negative); Clarity Cloudy (Clear); Glucose Negative (Negative); Ketones Trace mg/dL (Negative); Leukocyte Esterase Small (Negative); Nitrite Positive (Negative); Specific Gravity >= 1.030 (1.005-1.025); Urobilinogen 0.2 EU/dL (Up TO 0.2); pH 5.5 (5-8)
[2021-07-25 11:40] LABS: Bacteria Many HPF (Negative); Crystals Negative HPF (Negative); Epithelial Cells Few HPF (Negative); Mucus Negative (Negative); RBC >50 HPF (0-2); WBC >50 HPF (0-5)
[2021-07-25 11:41] LABS: C & S Indicated? Yes
--- NOTE | 2021-07-25 11:45 | NUR.NOTE ---
Nursing Note: Referral faxed to [facility] for follow up of aflutter within 1 week, Raiza Shaffer
[2021-07-25] MEDS: Cephalexin 500 MG CAP PO (12:21)
== END 2021-07-25 12:29 | disposition home or self-care (01) ==
PROVIDERS: Emergency Provider Physician Assistant; PCP Family Medicine
DX: N39.0 Urinary tract infection, site not specified (principal); B95.2 Enterococcus as the cause of diseases classified elsewhere; I48.92 Unspecified atrial flutter; Z79.01 Long term (current) use of anticoagulants; I50.9 Heart failure, unspecified
CPT/HCPCS: 36415; 80053; 87077; 93005; 96365; 99195; 99285; 71046; 81003; 81015; 83735; 83880; 84443; 84484; 85025; 87086; 87186; 93010; 99284; J3475

== ENCOUNTER 2021-08-29 01:35 | Outpatient (RCR) | payer MEDICARE, SELFPAY ==
[2021-08-01 09:16] LABS: Abs Immature Grans 0.02 10^3/uL (0.0-0.06); Absolute Basophil Count 0.03 10^3/uL (0.0-0.2); Absolute Eosinophil Count 0.06 10^3/uL (0.0-0.7); Absolute Lymphocyte Count 0.48 10^3/uL (1.2-3.4); Absolute Monocyte Count 0.91 10^3/uL (0.1-0.8); Absolute Neutrophil Count 4.57 10^3/uL (1.2-6.7); Basophils % 0.5; HCT 43.4 % (40.0-50.0); HGB 13.9 g/dL (13.5-17.5); Immature Grans % 0.3; Lymphocytes % 7.9; MCH 32.6 pg (27.0-33.0); MCV 101.9 fL (80-95); MPV 9.3 fL (8.0-11.0); Neutrophils % 75.3; Nucleated RBC 0 %; Platelet Count 194 10^3/uL (130-400); RBC 4.26 10^6/uL (4.36-5.78); RDW 14.1 % (11.8-14.1); RDW-SD 51.3 fL; WBC 6.07 10^3/uL (4.4-10.8)
[2021-08-01 09:29] LABS: ALT 30 U/L (16-63); AST 24 U/L (15-37); Albumin 3.4 g/dL (3.4-5.0); Alkaline Phosphatase 111 U/L (46-116); Anion Gap 5.8 mmol/L (3-11); BUN 15 mg/dL (7-18); Bilirubin, Total 0.8 mg/dL (0.2-1.0); CO2 30.2 mmol/L (21.0-32.0); Chloride 109 mmol/L (98-107); Glucose 96 mg/dL (74-106); Magnesium 1.9 mg/dL (1.8-2.4); Potassium 4.1 mmol/L (3.5-5.1); Sodium 145 mmol/L (136-145); Total Protein 7.1 g/dL (6.4-8.2)
[2021-08-08 08:58] LABS: Abs Immature Grans 0.04 10^3/uL (0.0-0.06); Absolute Basophil Count 0.05 10^3/uL (0.0-0.2); Absolute Eosinophil Count 0.18 10^3/uL (0.0-0.7); Absolute Lymphocyte Count 0.46 10^3/uL (1.2-3.4); Absolute Monocyte Count 0.34 10^3/uL (0.1-0.8); Absolute Neutrophil Count 3.82 10^3/uL (1.2-6.7); Eosinophils % 3.7; HCT 42.5 % (40.0-50.0); HGB 13.5 g/dL (13.5-17.5); Immature Grans % 0.8; Lymphocytes % 9.4; MCH 32.4 pg (27.0-33.0); MCHC 31.8 % (32.0-36.0); MCV 101.9 fL (80-95); MPV 9.9 fL (8.0-11.0); Neutrophils % 78.1; Nucleated RBC 0 %; Platelet Count 175 10^3/uL (130-400); RBC 4.17 10^6/uL (4.36-5.78); RDW 14.4 % (11.8-14.1); RDW-SD 52.9 fL; WBC 4.89 10^3/uL (4.4-10.8)
[2021-08-08 09:15] LABS: ALT 36 U/L (16-63); AST 16 U/L (15-37); Albumin 3.5 g/dL (3.4-5.0); Alkaline Phosphatase 110 U/L (46-116); Anion Gap 4.8 mmol/L (3-11); BUN 14 mg/dL (7-18); Bilirubin, Total 1.1 mg/dL (0.2-1.0); CO2 31.2 mmol/L (21.0-32.0); CREATININE 0.9 mg/dL (0.70-1.30); Calcium 8.4 mg/dL (8.5-10.1); Chloride 108 mmol/L (98-107); Glucose 91 mg/dL (74-106); Magnesium 1.9 mg/dL (1.8-2.4); Potassium 4.5 mmol/L (3.5-5.1); Sodium 144 mmol/L (136-145); Total Protein 7.1 g/dL (6.4-8.2)
== END 2021-08-30 23:59 | disposition home or self-care (01) ==
LOC: INF 01:35
PROVIDERS: PCP Family Medicine; Visit Provider Internal Medicine Medical Oncology
DX: C34.11 Malignant neoplasm of upper lobe, right bronchus or lung (principal)
CPT/HCPCS: 36415; 80053; 83735; 85025

== ENCOUNTER 2021-09-26 03:26 | Outpatient (RCR) | payer MEDICARE, SELFPAY ==
[2021-09-02 11:52] LABS: Abs Immature Grans 0.02 10^3/uL (0.0-0.06); Absolute Basophil Count 0.06 10^3/uL (0.0-0.2); Absolute Eosinophil Count 0.23 10^3/uL (0.0-0.7); Absolute Lymphocyte Count 0.41 10^3/uL (1.2-3.4); Absolute Monocyte Count 0.83 10^3/uL (0.1-0.8); Absolute Neutrophil Count 4.52 10^3/uL (1.2-6.7); Eosinophils % 3.8; HCT 40.3 % (40.0-50.0); Immature Grans % 0.3; Lymphocytes % 6.8; MCH 32.5 pg (27.0-33.0); MCHC 32.3 % (32.0-36.0); MCV 100.8 fL (80-95); MPV 9.5 fL (8.0-11.0); Monocytes % 13.7; Neutrophils % 74.4; Nucleated RBC 0 %; Platelet Count 252 10^3/uL (130-400); RDW 15.1 % (11.8-14.1); RDW-SD 55.8 fL; WBC 6.07 10^3/uL (4.4-10.8)
[2021-09-02 12:10] LABS: ALT 39 U/L (16-63); AST 31 U/L (15-37); Albumin 2.9 g/dL (3.4-5.0); Alkaline Phosphatase 204 U/L (46-116); BUN 15 mg/dL (7-18); CREATININE 0.9 mg/dL (0.70-1.30); Calcium 9.1 mg/dL (8.5-10.1); Chloride 104 mmol/L (98-107); FREE T4 1.46 ng/dL (0.76-1.46); Glucose 107 mg/dL (74-106); Potassium 3.9 mmol/L (3.5-5.1); Sodium 140 mmol/L (136-145); Total Protein 7.4 g/dL (6.4-8.2)
[2021-09-26 12:33] LABS: Abs Immature Grans 0.01 10^3/uL (0.0-0.06); Absolute Basophil Count 0.05 10^3/uL (0.0-0.2); Absolute Eosinophil Count 0.22 10^3/uL (0.0-0.7); Absolute Lymphocyte Count 0.82 10^3/uL (1.2-3.4); Absolute Monocyte Count 0.93 10^3/uL (0.1-0.8); Absolute Neutrophil Count 3.54 10^3/uL (1.2-6.7); Basophils % 0.9; Eosinophils % 3.9; HGB 13.6 g/dL (13.5-17.5); Immature Grans % 0.2; Lymphocytes % 14.7; MCH 32.9 pg (27.0-33.0); MCHC 32.4 % (32.0-36.0); MCV 101.7 fL (80-95); MPV 9.4 fL (8.0-11.0); Monocytes % 16.7; Neutrophils % 63.6; Nucleated RBC 0 %; Platelet Count 190 10^3/uL (130-400); RBC 4.13 10^6/uL (4.36-5.78); RDW-SD 56.7 fL; WBC 5.57 10^3/uL (4.4-10.8)
[2021-09-26 12:55] LABS: ALT 29 U/L (16-63); AST 28 U/L (15-37); Albumin 3.4 g/dL (3.4-5.0); Alkaline Phosphatase 157 U/L (46-116); Anion Gap 8.1 mmol/L (3-11); BUN 17 mg/dL (7-18); Bilirubin, Total 1.3 mg/dL (0.2-1.0); CO2 26.9 mmol/L (21.0-32.0); CREATININE 0.9 mg/dL (0.70-1.30); Calcium 9.2 mg/dL (8.5-10.1); Chloride 107 mmol/L (98-107); FREE T4 1.04 ng/dL (0.76-1.46); Glucose 99 mg/dL (74-106); Sodium 142 mmol/L (136-145); TSH 0.93 uIU/mL (0.36-3.74); Total Protein 7.4 g/dL (6.4-8.2)
== END 2021-09-30 23:59 | disposition home or self-care (01) ==
LOC: INF 03:26
PROVIDERS: PCP Family Medicine; Visit Provider Internal Medicine Medical Oncology
DX: C34.11 Malignant neoplasm of upper lobe, right bronchus or lung (principal); Z79.899 Other long term (current) drug therapy
CPT/HCPCS: 36415; 80053; 84439; 84443; 85025

== ENCOUNTER 2021-10-31 01:21 | Outpatient (RCR) | payer MEDICARE, SELFPAY ==
[2021-10-31 12:11] LABS: Abs Immature Grans 0.02 10^3/uL (0.0-0.06); Absolute Basophil Count 0.02 10^3/uL (0.0-0.2); Absolute Lymphocyte Count 0.57 10^3/uL (1.2-3.4); Absolute Monocyte Count 0.59 10^3/uL (0.1-0.8); Absolute Neutrophil Count 4.46 10^3/uL (1.2-6.7); Basophils % 0.4; HCT 39.7 % (40.0-50.0); HGB 12.6 g/dL (13.5-17.5); Immature Grans % 0.4; Lymphocytes % 10.1; MCH 32.5 pg (27.0-33.0); MCHC 31.7 % (32.0-36.0); MCV 102.3 fL (80-95); MPV 9.2 fL (8.0-11.0); Monocytes % 10.4; Neutrophils % 78.7; Nucleated RBC 0 %; Platelet Count 266 10^3/uL (130-400); RBC 3.88 10^6/uL (4.36-5.78); RDW 13.8 % (11.8-14.1); WBC 5.66 10^3/uL (4.4-10.8)
[2021-10-31 12:32] LABS: ALT 25 U/L (16-63); AST 24 U/L (15-37); Albumin 3.1 g/dL (3.4-5.0); Alkaline Phosphatase 164 U/L (46-116); Anion Gap 9.2 mmol/L (3-11); BUN 11 mg/dL (7-18); Bilirubin, Total 1.5 mg/dL (0.2-1.0); CO2 26.8 mmol/L (21.0-32.0); Calcium 8.8 mg/dL (8.5-10.1); Chloride 106 mmol/L (98-107); FREE T4 1.18 ng/dL (0.76-1.46); Glucose 109 mg/dL (74-106); Potassium 3.5 mmol/L (3.5-5.1); Sodium 142 mmol/L (136-145); TSH 0.71 uIU/mL (0.36-3.74)
== END 2021-10-31 23:59 | disposition home or self-care (01) ==
LOC: INF 01:21
PROVIDERS: PCP Family Medicine; Visit Provider Internal Medicine Medical Oncology
DX: C34.11 Malignant neoplasm of upper lobe, right bronchus or lung (principal); Z79.899 Other long term (current) drug therapy
CPT/HCPCS: 36415; 80053; 84439; 84443; 85025

== ENCOUNTER 2021-11-28 01:23 | Outpatient (RCR) | payer MEDICARE, SELFPAY ==
[2021-11-28 13:41] LABS: Abs Immature Grans 0.02 10^3/uL (0.0-0.06); Absolute Basophil Count 0.04 10^3/uL (0.0-0.2); Absolute Eosinophil Count 0.01 10^3/uL (0.0-0.7); Absolute Lymphocyte Count 0.62 10^3/uL (1.2-3.4); Absolute Monocyte Count 0.81 10^3/uL (0.1-0.8); Absolute Neutrophil Count 6.75 10^3/uL (1.2-6.7); Basophils % 0.5; Eosinophils % 0.1; HCT 46.6 % (40.0-50.0); HGB 14.4 g/dL (13.5-17.5); Immature Grans % 0.2; Lymphocytes % 7.5; MCH 32.6 pg (27.0-33.0); MCHC 30.9 % (32.0-36.0); MCV 105.4 fL (80-95); MPV 9.6 fL (8.0-11.0); Monocytes % 9.8; Neutrophils % 81.9; Nucleated RBC 0 %; Platelet Count 242 10^3/uL (130-400); RBC 4.42 10^6/uL (4.36-5.78); RDW 15.7 % (11.8-14.1); RDW-SD 61.7 fL; WBC 8.25 10^3/uL (4.4-10.8)
[2021-11-28 14:01] LABS: Diff Comment RBC Morph Reviewed; RBC Morphology Normal
[2021-11-28 14:02] LABS: Macrocytosis 2+; Polychromasia Present
[2021-11-28 14:08] LABS: ALT 61 U/L (16-63); AST 63 U/L (15-37); Albumin 3.1 g/dL (3.4-5.0); Alkaline Phosphatase 186 U/L (46-116); Anion Gap 8.5 mmol/L (3-11); BUN 24 mg/dL (7-18); Bilirubin, Total 1.9 mg/dL (0.2-1.0); CO2 26.5 mmol/L (21.0-32.0); CREATININE 1.4 mg/dL (0.70-1.30); Calcium 9.1 mg/dL (8.5-10.1); Chloride 106 mmol/L (98-107); Estimated GFR 48.76 (mL/min/1.73m2); FREE T4 1.23 ng/dL (0.76-1.46); Glucose 101 mg/dL (74-106); Potassium 3.9 mmol/L (3.5-5.1); Sodium 141 mmol/L (136-145); TSH 2.24 uIU/mL (0.36-3.74)
== END 2021-11-28 23:59 | disposition home or self-care (01) ==
LOC: INF 01:23
PROVIDERS: PCP Family Medicine; Visit Provider Internal Medicine Medical Oncology
DX: C34.11 Malignant neoplasm of upper lobe, right bronchus or lung (principal); Z79.899 Other long term (current) drug therapy
CPT/HCPCS: 36415; 80053; 84439; 84443; 85025

== ENCOUNTER 2021-12-26 15:12 | Inpatient (IN) | payer MEDICARE, SELFPAY ==
[2021-12-26] VITALS (37 sets, daily range): BP systolic 96–141; BP diastolic 80–116; PULSE 90–114; RESP 14–35; TEMP 36–36.4; O2SAT 92–98
--- NOTE | 2021-12-26 15:00 | RT.EKG_ITS ---
APPROVED REPORT Exam: Resting ECG Reason for Exam: low hr/ o2 sat Patient Location: E HR:97 bpm ECG Measurements Heart Rate 97 AXIS [place] 144 P 239 QRSd 222 QRS 160 QT 468 T -31 QTc 594 Conclusion Regular, likely underlying flutter. RBBB. Similar to 07/25/21
--- NOTE | 2021-12-26 15:15 | DI.CT_ITS ---
Exam(s) CT HEAD CERVICAL SPINE WO EXAM: CT HEAD CERVICAL SPINE WO CLINICAL HISTORY: fall, antoicoagulated, posterior trauma.Near Synco. TECHNIQUE: Imaging Protocol: Axial computed tomography images with coronal and sagittal reformatted images were created and reviewed COMPARISON: CR XR CHEST 2V PA LATERAL from 07/25/2021 CR XR PORTABLE CHEST AP from 12/26/2021 FINDINGS: Head CT Ventricles and Extra axial spaces: Normal in size and morphology for the patient's age. Hemorrhage: None. Cerebral parenchyma: Moderate atrophy. Mild white matter changes of small vessel disease. Midline shift: None. Brainstem/Cerebellum: Normal. Calvarium: Normal. Visualized Paranasal sinuses/Mastoids: Clear. Cervical Spine CT BONES: Vertebral body heights are maintained. Alignment is normal. There is no evidence of acute frac ture. Prominent degenerative disc changes and facet degenerative changes are seen . partial fusion between C5 and C6. SOFT TISSUES: No paraspinal hematoma. The airway appears intact. No pneumothorax is seen at the lung apices. Mild scarring. Mild emphysematous changes are visible. There is a loculated pleural based collection at the right lung apex. Other: Partially included on the exam is a mildly expansile, circumscribed cystic lesion in the left mandibu lar ramus with central calcification. It surrounds the posterior molar tooth and is likely dentigero us cyst.. IMPRESSION: Head CT: Atrophy. No acute abnormality. C-spine CT: Degenerative changes, no acute abnormality. Results of this exam have been verbally communicated with emergency room provider. RADIATION DOSE DELIVERED: 1,625.53mGy.cm Total DLP DATA REPOSITORY: All CT scans at this facility are submitted to the National Radiology Data Registry (NRDR) Dose Index Registry (DIR) with the [employer] (ACR). RADIATION OPTIMIZATION: All CT scans at this facility use at least one of these dose optimization te chniques: automated exposure control; mA and/or kV adjustment per patient size (includes targeted exa ms where dose is matched to clinical indication); or iterative reconstruction.
--- NOTE | 2021-12-26 15:20 | DI.RAD_ITS ---
Exam(s) XR PORTABLE CHEST AP EXAM: XR PORTABLE CHEST AP CLINICAL HISTORY: SOB, near syncope, recent edema TECHNIQUE: 2D digital imaging was performed. COMPARISON: CR XR CHEST 2V PA LATERAL from 07/25/2021 FINDINGS: The heart is enlarged. There are increased densities seen in the right upper lobe and questionably l eft lower lobe. There is a small to moderate size left pleural effusion. Bilateral pleural based on thickening is noted which was seen on the prior exam. IMPRESSION: Right pleural effusion. Bilateral infiltrates could represent pulmonary edema question superimposed right upper lobe infiltrate versus mass. Pleural thickening. DATA REPOSITORY: RADIATION DOSE DELIVERED:
--- NOTE | 2021-12-26 15:22 | W.ED.GENAD ---
Discharge Plan Disposition Patient Disposition: [facility] INPATIENT Condition: Improving Discharge Details Clinical Impression: Atrial flutter, CHF (congestive heart failure), Non-small cell cancer of right lung Primary Care Provider: Kevin Morales ED Provider: Jagdish Oates Home Meds and New Rx's Prescriptions: No Action propranolol 80 mg capsule,extended release 24 hr 80 mg PO BID 0RF aspirin [Adult Aspirin Regimen] 81 mg tablet,delayed release (DR/EC) 81 mg PO DAILY 0RF atorvastatin 40 mg Tablet 40 mg PO DAILY 0RF omeprazole 20 mg Capsule,Delayed Release(Dr/Ec) 20 mg PO DAILY 0RF Xarelto 20 mg Tablet 20 mg PO DAILY 0RF metoprolol succinate 50 mg Tablet Extended Release 24 Hr 50 mg PO DAILY 0RF coenzyme Q10 10 mg Capsule 10 mg PO DAILY 0RF cyanocobalamin (vitamin B-12) 250 mcg Tablet 500 mcg PO DAILY 0RF amlodipine 5 mg Tablet 5 mg PO DAILY 0RF sennosides 25 mg Tablet 25 mg PO DAILY 0RF alprazolam 0.5 mg Tablet 0.5 mg PO QHS 0RF melatonin 10 mg Capsule 10 mg PO HS PRN0RF folic acid 400 mcg Tablet 0.4 mg PO DAILY 0RF B Complex Plus Vitamin C Tablet 1 tab PO DAILY 0RF vitamin E 400 unit Capsule 400 unit PO DAILY 0RF cholecalciferol (vitamin D3) [Vitamin D3] 25 mcg (1,000 unit) Tablet 25 mcg PO DAILY 0RF Medical Decision Making 81-year-old male presents via EMS from outpatient appointment at the oncology center. He lives alone in [place], has non-small cell lung cancer and a history of A. fib/flutter, on Xarelto. He has had increasing episodes of shortness of breath and has noticed increasing lower extremity edema. Walking into the appointment he became short of breath, and then was noted to be weak, with reported bradycardia and hypoxia at the clinic, found to have palpable pulse and more alert after the administration of D10 by EMS for hypoglycemia of 35. Patient did not eat today. He did not have denies chest pain. He is anticoagulated for his A. fib and reports mechanical fall this weekend with posterior head trauma. He arrives improved with BP 120/70, pulse 90's, 94% on RA at rest. He has rales in the bases of his lungs, edema of the legs, and note of the hypoglycemia which clearly has responded to oral and IV glucose as well as a small snack. As above, patient did not eat today, but no other clear etiology for his hypoglycemia. Differential diagnosis includes metabolic disorder, CHF, must exclude intracranial hemorrhage given recent fall on anticoagulation. Patient had IV access established patient lunchroom monitor, screening laboratories obtained, placed on 2 L of oxygen, referred for chest x-ray, CT head, laboratories. Labs: White count 6, hematocrit 51, platelets 234. INR 6.3 BUN 26, creatinine 2.1 which are elevated over baseline. D-dimer is elevated. Chemistries reveal an AST of 114, ALT 80. Troponin negative. BNP 21,974. Chest x-ray shows right pleural effusion, right chest mass, see formal report. CT scan of the head was obtained and unremarkable. Patient has CHF with peripheral edema. He has hypoglycemia that may be due to decreased p.o. intake today, but somewhat unexplained. Also he has an INR 6.3 but takes Xarelto rather than warfarin. Diuresis initiated with 20 mg of Lasix. Patient to be admitted to Dr. Dobbins's service. Patient stable and appropriate for admission. HPI General Mode of arrival: EMS. Date/Time Provider Initiated Documentation: 12/26/21 15:19. Limitations to Documentation: no limitations. Information obtained by: patient and EMS. History of Present Illness 81 year old M presents to the emergency department with the chief complaint of Shortness of breath, near syncope at oncology clinic, described as moderate, and is localized to the head. Patient started experiencing this minute(s) and it has been now resolved. improves with No relieving factors improve symptom(s), No exacerbating factors reported . Patient notes confusion, loss of appetite, shortness of breath and weakness; denies chest pain and syncope. Patient did receive the following treatments prior to arrival, other (100 cc D10, 150 cc normal saline) Related Data Home Medications Medication Instructions Recorded Confirmed atorvastatin 40 mg tablet 40 mg PO DAILY 07/25/21 12/26/21 omeprazole 20 mg capsule,delayed 20 mg PO DAILY 07/25/21 12/26/21 release rivaroxaban 20 mg tablet (Xarelto) 20 mg PO DAILY 07/25/21 12/26/21 aspirin 81 mg tablet,delayed 81 mg PO DAILY 07/29/21 12/26/21 release (Adult Aspirin Regimen) propranolol 80 mg capsule,24 80 mg PO BID 07/29/21 12/26/21 hr,extended release alprazolam 0.5 mg tablet 0.5 mg PO QHS 12/26/21 12/26/21 amlodipine 5 mg tablet 5 mg PO DAILY 12/26/21 12/26/21 cholecalciferol (vitamin D3) 25 25 mcg PO DAILY 12/26/21 12/26/21 mcg (1,000 unit) tablet (Vitamin D3) coenzyme Q10 10 mg capsule 10 mg PO DAILY 12/26/21 12/26/21 cyanocobalamin (vitamin B-12) 250 500 mcg PO DAILY 12/26/21 12/26/21 mcg tablet folic acid 400 mcg tablet 0.4 mg PO DAILY 12/26/21 12/26/21 melatonin 10 mg capsule 10 mg PO HS PRN 12/26/21 12/26/21 metoprolol succinate 50 mg 50 mg PO DAILY 12/26/21 12/26/21 tablet,extended release 24 hr multivit,tx w/iron (hematinic) 1 tab PO DAILY 12/26/21 12/26/21 sennosides 25 mg tablet 25 mg PO DAILY 12/26/21 12/26/21 vitamin E 400 unit capsule 400 unit PO DAILY 12/26/21 12/26/21 Allergies Allergy/AdvReac Type Severity Reaction Status Date / Time No Known Allergies Allergy Unverified 07/25/21 09:10 General Stated Complaint: GenMedical LUANA: 2 Review of Systems Narrative: Did not eat today. Has non-small cell lung cancer. Lives alone in [place]. Increasing episodes of shortness of breath and lower extremity edema, worse with exertion today. Reports a mechanical fall and struck posterior scalp this weekend without loss of consciousness or headache. He is anticoagulated. 8 systems reviewed and otherwise negative. PFSH All Active Problems (Updated 12/26/21 @ 16:54 by Jagdish Oates MD) CHF (congestive heart failure) (Chronic) Non-small cell cancer of right lung (Acute) HLD (hyperlipidemia) (Acute) HTN (hypertension) with goal to be determined (Acute) Atrial flutter (Acute) Acute UTI (Acute) Social History Smoking/Tobacco Use Status: Former Tobacco Use Smoking risk assessment performed?: Yes Alcohol Intake: current Alcohol Intake frequency: a few times a month Substance use type: does not use Details: Previous HX heavy ETOH use--decreased use past 10 years Do you feel safe at home: Yes Do you feel safe in your relationship?: Yes Exam Narrative Exam Narrative: GEN: awake, alert, oriented 3. Pleasant, well groomed, interactive. HEAD: Normocephalic, small posterior abrasion, no cephalohematoma ENT: Mucous membranes moist, oropharynx unremarkable, External ear exam unremarkable EYES: PERRL, EOMI NECK: Full ROM, no PHUONG, no menigismus, no posterior step-off or deformity CHEST/RESP: Nontender, basilar rales CARDIOVASCULAR: Distant and regular. Palpable radial pulse bilateral ABDOMEN: Soft, nontender, no mass. +Bowel sounds EXT: Full ROM, no edema, no rash Neuro: Grossly normal neurologic exam, conversant, interactive. Psych: Speech fluent, thoughts congruent, affect normal Course Vital Signs Vital signs: Vital Signs Temperature 36.1 C L 12/26/21 15:15 Pulse 97 H 12/26/21 15:15 Respiratory Rate 25 H 12/26/21 15:15 Blood Pressure 123/91 H 12/26/21 15:15 Pulse Oximetry 95 12/26/21 15:15 Temperature 36.1 C L 12/26/21 15:15 Temperature Source Temporal Artery Scan 12/26/21 15:15 Pulse 97 H 12/26/21 15:15 Respiratory Rate 25 H 12/26/21 15:15 Blood Pressure 123/91 H 12/26/21 15:15 Blood Pressure Position Supine 12/26/21 15:15 Pulse Oximetry 95 12/26/21 15:15 Oxygen Delivery Method Room Air 12/26/21 15:15 Oxygen Flow Rate 0 12/26/21 15:15 Pain Level 0 12/26/21 15:15
[2021-12-26] MEDS: Dextrose 50%-Water 25 GM/50 ML SYR (15:25)
[2021-12-26 15:46] LABS: Abs Immature Grans 0.04 10^3/uL (0.0-0.06); Absolute Basophil Count 0.03 10^3/uL (0.0-0.2); Absolute Eosinophil Count 0.01 10^3/uL (0.0-0.7); Absolute Lymphocyte Count 0.99 10^3/uL (1.2-3.4); Absolute Neutrophil Count 5.04 10^3/uL (1.2-6.7); Basophils % 0.4; Eosinophils % 0.1; HCT 51.6 % (40.0-50.0); HGB 15.8 g/dL (13.5-17.5); Immature Grans % 0.6; Lymphocytes % 14.8; MCHC 30.6 % (32.0-36.0); MCV 107.7 fL (80-95); MPV 9.5 fL (8.0-11.0); Monocytes % 8.9; Neutrophils % 75.2; Nucleated RBC 0 %; Platelet Count 234 10^3/uL (130-400); RBC 4.79 10^6/uL (4.36-5.78); RDW 15.9 % (11.8-14.1); WBC 6.71 10^3/uL (4.4-10.8)
[2021-12-26 16:04] LABS: Diff Comment Agrees w/ Instrument; Prothrombin Time 60.5 sec (9.3-11.0)
[2021-12-26 16:05] LABS: Anisocytosis 1+; Macrocytosis 1+
[2021-12-26 16:07] LABS: INR 6.3 (0.9-1.1)
[2021-12-26 16:10] LABS: ALT 80 U/L (16-63); AST 114 U/L (15-37); Alkaline Phosphatase 195 U/L (46-116); Anion Gap 19.2 mmol/L (3-11); BUN 26 mg/dL (7-18); Bilirubin, Total 3.3 mg/dL (0.2-1.0); CO2 15.8 mmol/L (21.0-32.0); CREATININE 2.1 mg/dL (0.70-1.30); Calcium 9.1 mg/dL (8.5-10.1); Chloride 103 mmol/L (98-107); Estimated GFR 30.54 (mL/min/1.73m2); Glucose 50 mg/dL (74-106); NT-proBNP 21974 pg/mL (<300); Potassium 5.5 mmol/L (3.5-5.1); Sodium 138 mmol/L (136-145); Total Protein 6.7 g/dL (6.4-8.2); Troponin I < 50 ng/L (<or=60)
[2021-12-26 16:19] LABS: D-Dimer 2035 ng/mlFEU (<500)
[2021-12-26] MEDS: Furosemide 20 MG/2 ML VIAL IVP ×2 (17:00→20:51)
--- NOTE | 2021-12-26 18:20 | HPE_ITS ---
Date of service: 12/26/21 Time of Service: 18:20 Assessment and Plan Assessment and plan (1) CHF (congestive heart failure): Status: Chronic Assessment and plan: No documentation of known CHF. He endorses pedal edema for appx 6 mos. No CP, SOA, HARRISON, h/o CAD. Lasix 20mg IV in ED. Repeat another 20mg IV, then 40mg IV daily. Monitor creatinine. Echocardiogram ordered. He is on metoprolol; continue. Heart Healthy diet. (2) Non-small cell cancer of right lung: Status: Acute Assessment and plan: Currently under the care of oncology. (3) HLD (hyperlipidemia): Status: Acute Assessment and plan: Continue atorvastatin. (4) HTN (hypertension) with goal to be determined: Status: Acute Assessment and plan: Cont metoprolol Monitor. (5) Atrial flutter: Status: Acute Assessment and plan: On Xarelto for AC; hold d/t current coagulopathy, but doubt this is why the INR is significantly elevated. Cont metoprolol. Rate controlled. (6) Coagulopathy: Status: Acute Assessment and plan: Unclear etiology but likely decrease clotting factor synthesis d/t liver disease. No known liver disease documented but bili and LFT's are elevated. Not taking any meds known to cause elevated INR. NOt on chemotherapy. US of liver/biliary system ordered. Vitamin K 2.5mg oral administered. Monitor INR. (7) Hypoglycemia: Status: Acute Assessment and plan: Likely an isolated event d/t no oral intake on day of occurrence. Symptoms corrected with administration of IV glucose. Not diabetic / on diabetic meds. History of Present Illness History of Present Illness Chief Complaint: Near syncope, hypoglycemia Narrative: This is an 81 yo male with a PMH of non-small cell right lung cancer, HTN, Afib/flutter on Xarelto, HLD. He presented after an episode of near syncope and shortness of breath at his oncologists office. There, they noted bradycaria and hypoxia per pulse oximetry. EMS noted a blood glucose of 35. After administration of D10 his symptoms resolved and upon arrival at [facility] his BP was 120/70, pulse in the 90's and RA O2 saturation of 94%. Noted to have edema of legs and rales in lung bases. CXR showed right plearal effusion, right chest mass. Bilateral pulmonary edema. WBC count 6. Hgb 15.8. INR 6.3. Creatinine 2.1.(elevated over baseline of 1.0). D-dimer elevated. AST 114. ALT 80. Bilirubin 3.3. BNP 21,974. He endorsed not eating today. No CP, palpitations. No N/V/abd pain. No melena, hematochezia. Admitted for CHF treatment and evaluation and evaluation of coagulopathy. PFSH All Active Problems (Updated 12/26/21 @ 18:30 by Jerry Dobbins MD) Hypoglycemia (Acute) Coagulopathy (Acute) CHF (congestive heart failure) (Chronic) Non-small cell cancer of right lung (Acute) HLD (hyperlipidemia) (Acute) HTN (hypertension) with goal to be determined (Acute) Atrial flutter (Acute) Acute UTI (Acute) Social History Smoking/Tobacco Use Status: Former Tobacco Use Smoking risk assessment performed?: Yes Alcohol Intake: current Alcohol Intake frequency: a few times a month Substance use type: does not use Details: Previous HX heavy ETOH use--decreased use past 10 years Do you feel safe at home: Yes Do you feel safe in your relationship?: Yes Meds Allergies and Home Medications Allergies Allergy/AdvReac Type Severity Reaction Status Date / Time No Known Allergies Allergy Unverified 07/25/21 09:10 Home Medications Medication Instructions Recorded Confirmed Type atorvastatin 40 mg tablet 40 mg PO DAILY 07/25/21 12/26/21 History omeprazole 20 mg capsule,delayed 20 mg PO DAILY 07/25/21 12/26/21 History release rivaroxaban 20 mg tablet (Xarelto) 20 mg PO DAILY 07/25/21 12/26/21 History aspirin 81 mg tablet,delayed 81 mg PO DAILY 07/29/21 12/26/21 History release (Adult Aspirin Regimen) propranolol 80 mg capsule,24 80 mg PO BID 07/29/21 12/26/21 History hr,extended release alprazolam 0.5 mg tablet 0.5 mg PO QHS 12/26/21 12/26/21 History amlodipine 5 mg tablet 5 mg PO DAILY 12/26/21 12/26/21 History cholecalciferol (vitamin D3) 25 25 mcg PO DAILY 12/26/21 12/26/21 History mcg (1,000 unit) tablet (Vitamin D3) coenzyme Q10 10 mg capsule 10 mg PO DAILY 12/26/21 12/26/21 History cyanocobalamin (vitamin B-12) 250 500 mcg PO DAILY 12/26/21 12/26/21 History mcg tablet folic acid 400 mcg tablet 0.4 mg PO DAILY 12/26/21 12/26/21 History melatonin 10 mg capsule 10 mg PO HS PRN 12/26/21 12/26/21 History metoprolol succinate 50 mg 50 mg PO DAILY 12/26/21 12/26/21 History tablet,extended release 24 hr multivit,tx w/iron (hematinic) 1 tab PO DAILY 12/26/21 12/26/21 History sennosides 25 mg tablet 25 mg PO DAILY 12/26/21 12/26/21 History vitamin E 400 unit capsule 400 unit PO DAILY 12/26/21 12/26/21 History Exam Narrative Exam Narrative: Mr Daliy is lying in bed. Conversant, NAD Const General: cooperative Nutritional Appearance: overweight Orientation: alert and oriented x3 Eyes General: appearance normal, both eyes and all related structures Sclera: sclerae normal Resp Effort & Inspection: normal respiratory effort Auscultation: clear to auscultation bilaterally Cardio Rate: tachycardic Rhythm: regular rhythm and abnormal rhythm GI Inspection: normal to inspection Palpation: soft and nontender Auscultation: normal bowel sounds Skin General skin exam: no rashes or lesions noted Neuro General: no focal motor deficits Cranial Nerves: facial strength normal Cognition: normal cognition Speech: speech normal Extrem General: no calf tenderness and edema Laterality: bilateral (1-2+) Psych Mental Status: mental status grossly normal Mood: congruent mood Affect: normal affect Results Labs Result diagrams: 12/27/21 06:12 12/26/21 15:20 Labs: Laboratory Results - last 24 hr 12/26/21 12/26/21 12/26/21 15:20 15:20 15:20 WBC 6.71 RBC 4.79 Hgb 15.8 Hct 51.6 H MCV 107.7 H MCH 33.0 MCHC 30.6 L RDW 15.9 H Plt Count 234 MPV 9.5 Immature Gran % 0.6 Neutrophils % 75.2 Lymphocytes % 14.8 Monocytes % 8.9 Eosinophils % 0.1 Basophils % 0.4 Nucleated RBC % 0 Absolute Neutrophils 5.04 Absolute Lymphocytes 0.99 L Absolute Monocytes 0.60 Absolute Eosinophils 0.01 Absolute Basophils 0.03 RBC Morphology See Below Anisocytosis 1+ Macrocytosis 1+ PT 60.5 H INR 6.3 H* APTT 55.0 H D-Dimer 2035 H Sodium 138 Potassium 5.5 H Chloride 103 Carbon Dioxide 15.8 L Anion Gap 19.2 H BUN 26 H Creatinine 2.1 H Estimated GFR/1.73 m2 30.54 Glucose 50 L Calcium 9.1 Magnesium 2.0 Total Bilirubin 3.3 H AST 114 H ALT 80 H Alkaline Phosphatase 195 H Troponin I < 50 NT-Pro-B Natriuret Pep 18751 H Total Protein 6.7 Albumin 3.0 L Last Vital Signs Temp 36.1 C L 12/26/21 15:15 Pulse 99 H 12/26/21 18:01 Resp 14 12/26/21 18:01 BP 136/100 H 12/26/21 18:01 Pulse Ox 97 12/26/21 17:46 PAWSS Have you Been Recently Intoxicated or Drunk Within the Last 30 days?: No Have you Ever Experienced Previous Episodes of Alcohol Withdrawal?: Yes Have you ever Experienced Withdrawal Seizures?: Yes Have you ever Experienced Delirium Tremens(DT)s?: Yes Have you ever undergone Alcohol Rehabilitation Treatment (i.e, inpt ot outpatient treatment programs)?: No Have you ever Experienced Blackouts?: Yes Have you ever Combined Alcohol with other Downers within the last 90 days?: No Have you ever Combined Alcohol with any other Substance of Abuse during the last 90 days?: No Positive Blood Alcohol level on Presentation? [PCS.BAL]: No Evidence of Increased Autonomic Activity (i.e. HR>120, tremor, sweating, agitation, nausea)?: No Result: 4
[2021-12-26 18:37] LABS: Source Nasal/Nares
[2021-12-26 19:17] LABS: Troponin I < 50 ng/L (<or=60)
[2021-12-26] MEDS: Phytonadione 5 MG TABLET 2.5 MG PO (20:52)
[2021-12-26] MEDS: Normal Saline Flush 10 ML SYR IVP (20:54)
[2021-12-26] MEDS: ALPRAZolam 0.5 MG TAB PO (23:07)
[2021-12-27] VITALS: PULSE 114
[2021-12-27 00:28] LABS: COVID-19 PCR Negative (Negative)
[2021-12-27 02:06] LABS: Bilirubin Negative (Negative); Blood Moderate (Negative); Clarity Cloudy (Clear); Glucose Negative (Negative); Ketones Negative (Negative); Leukocyte Esterase Small (Negative); Nitrite Negative (Negative); Urobilinogen 0.2 EU/dL (Up TO 0.2); pH 5.5 (5-8)
[2021-12-27 02:13] LABS: Bacteria Many HPF (Negative); C & S Indicated? Yes; Casts 3-5 Coarse Granular LPF (Negative); Crystals Few Amorphous HPF (Negative); Epithelial Cells Few HPF (Negative); Mucus Negative (Negative); WBC >50 HPF (0-5)
[2021-12-27 03:26] VITALS: BP 100/60; PULSE 115; RESP 16; TEMP 36.4; O2SAT 98
[2021-12-27 06:27] LABS: Abs Immature Grans 0.05 10^3/uL (0.0-0.06); Absolute Basophil Count 0.01 10^3/uL (0.0-0.2); Absolute Eosinophil Count 0.01 10^3/uL (0.0-0.7); Absolute Lymphocyte Count 0.36 10^3/uL (1.2-3.4); Absolute Neutrophil Count 9.75 10^3/uL (1.2-6.7); Basophils % 0.1; Eosinophils % 0.1; Immature Grans % 0.5; Lymphocytes % 3.3; MCH 32.5 pg (27.0-33.0); MCHC 31.8 % (32.0-36.0); MCV 102.3 fL (80-95); Monocytes % 6.9; Neutrophils % 89.1; Nucleated RBC 0 %; Platelet Count 210 10^3/uL (130-400); RBC 3.97 10^6/uL (4.36-5.78); RDW 15.4 % (11.8-14.1); RDW-SD 57.5 fL; WBC 10.94 10^3/uL (4.4-10.8)
[2021-12-27 06:39] LABS: Absolute Monocyte Count 0.75 10^3/uL (0.1-0.8)
[2021-12-27 06:42] LABS: HCT 40.6 % (40.0-50.0); HGB 12.9 g/dL (13.5-17.5)
[2021-12-27 07:01] LABS: ALT 705 U/L (16-63); Albumin 2.6 g/dL (3.4-5.0); Alkaline Phosphatase 162 U/L (46-116); Anion Gap 7.9 mmol/L (3-11); BUN 27 mg/dL (7-18); Bilirubin, Total 2.8 mg/dL (0.2-1.0); CO2 26.1 mmol/L (21.0-32.0); Calcium 8.4 mg/dL (8.5-10.1); Chloride 104 mmol/L (98-107); Estimated GFR 32.31 (mL/min/1.73m2); Glucose 97 mg/dL (74-106); Potassium 3.7 mmol/L (3.5-5.1); Sodium 138 mmol/L (136-145); Total Protein 5.7 g/dL (6.4-8.2)
[2021-12-27 07:03] VITALS: PULSE 115
[2021-12-27 07:08] LABS: AST 1502 U/L (15-37)
[2021-12-27 07:22] LABS: Lab Add On Test DONE
[2021-12-27 07:23] LABS: Prothrombin Time 68.5 sec (9.3-11.0)
[2021-12-27 07:24] LABS: INR 7.2 (0.9-1.1)
[2021-12-27] MEDS: Senna TAB 2 TAB PO (07:53)
[2021-12-27] MEDS: Omeprazole 20 MG CAPCR PO (07:54)
[2021-12-27] MEDS: Folic Acid 1 MG TAB PO (07:54)
[2021-12-27] MEDS: Metoprolol CR 50 MG TABCR PO (07:54)
[2021-12-27] MEDS: amLODIPine 5 MG TAB PO (07:54)
[2021-12-27] MEDS: Aspirin E.C. 81 MG TABEC PO (07:54)
[2021-12-27] MEDS: Atorvastatin 40 MG TAB PO (07:54)
[2021-12-27] MEDS: Normal Saline Flush 10 ML SYR IVP ×2 (07:54→15:21)
[2021-12-27 08:06] VITALS: BP 121/89; PULSE 116; RESP 20; TEMP 36.5; O2SAT 96
[2021-12-27 08:23] LABS: Procalcitonin 0.9 ng/mL
[2021-12-27 08:39] LABS: Lab Add On Test DONE
--- NOTE | 2021-12-27 08:41 | DI.US_ITS ---
APPROVED REPORT EXAM: Comprehensive 2D, Doppler, and color-flow Echocardiogram Patient Location: In-Patient Room/Bed: 208 Gymnastic Coach: Ariana Meléndez RDCS (AE) Indications: Pulmonary edema, CAD, CHF, HTN, A Flutter Other Information Study Quality: Fair. Technically limited study due to body habitus. Conclusion Normal left ventricular chamber size and wall thickness. Estimated ejection fraction is approximatel y 50%. There is diastolic septal flattening consistent with right ventricular pressure overload The right ventricle is dilated. There is paradoxic septal motion consistent with right ventricular v olume overload. The right ventricle is hypocontractile The left atrium is normal in size The right atrium is moderately dilated The aortic valve is sclerotic without stenosis or regurgitation Normal mitral valve with mild regurgitation The tricuspid valve is structurally normal. There is moderate tricuspid regurgitation. Estimated ri ght ventricular systolic pressure is 48 mmHg Mildly dilated ascending aorta measuring 3.72 cm Trivial pericardial effusion Wall motion Left Ventricle The left ventricle is normal size. Left ventricular systolic function appears grossly normal There is normal left ventricular wall thickness. Flattened septum consistent with right ventricular pressure overload. Flattened septum consistent with right ventricular volume overload. Paradoxical septal perla on consistent with right ventricular volume overload. There is no ventricular septal defect visualize d. LVEF is 50%. Right Ventricle Right ventricle is moderately dilated. Right ventricle is moderately hypokinetic. The RVSP is 47.2mmH g. Atria The left atrium size is normal. Right atrium is moderately dilated. The interatrial septum is intact with no evidence for an atrial septal defect. Aortic Valve The Aortic valve is sclerotic. Aortic valve is trileaflet. There is no aortic valvular stenosis. No a ortic regurgitation is present. Mitral Valve The mitral valve is normal in structure. No evidence of mitral valve stenosis. Mild mitral regurgitat ion. Tricuspid Valve The tricuspid valve is normal in structure. There is no tricuspid valve stenosis. Moderate tricuspid regurgitation. Pulmonic Valve The pulmonary valve is normal in structure. There is no pulmonic valvular stenosis. Mild pulmonic reg urgitation. Great Vessels The aortic root is normal in size. The ascending aorta is mildly dilated. Aortic arch is not well vis ualized. The IVC collapses <50% with inspiration. Pericardium Trace pericardial effusion. 2D Dimensions IVSD d PLAX 1.00 cm M: 0.6-1.2 LV Vol A2C d MOD 55.7 mL LVPW d PLAX 1.03 cm M: 0.6 - 1.2 LV Vol A4C d MOD 56.9 mL LVID d PLAX 4.82 cm M: 4.2 - 5.8 LA vol/ BSA A2C s A-L 20.9 mL/m2 LVDs 3.90 cm M: 2.5 - 4.0 LA vol/ BSA A4C s A-L 34.9 mL/m2 Ao Root d 3.31 cm M: 3.1 - 3.7 LA Vol/ BSA Biplane s A-L 29.6 mL/m2 RA Area A4C 25.57 cm2 LA Area A4C s MOD 23.19 cm2 RA Vol/ BSA A4C s A-L 44.6 mL/m2 LA Area A2C s MOD 16.37 cm2 Ao Asc Diam d 3.72 cm M: 2.6 - 3.4 LV EF A4C MOD 35.1 % LV EF Teichholz 37.9 % LV EF A2C MOD 41.1 % LVEF (Hanson's) 34.24 % M: 52 - 72 LV EF Biplane MOD 34.2 % LV Volume 42.33 mL M: 62 - 150 SV 19.61 mL LV Volume Index 20.25 mL/m2 M: 34 - 74 SV Index 9.38 mL/m2 LV Vol Biplane MOD 57.3 mL FS 18.30 % M-Mode TAPSE 0.79 cm (M/F) >1.7 Aortic Valve LVOT Area 3.00 cm2 AoV Area Vmax 2.19 cm2 LVOT Vmax 0.61 m/s AoV Area/ BSA (Vmax) 1.05 cm2/m2 LVOT Mean Piot. 0.38 m/s TALAT Mean Pito. 1.68 cm2 LVOT Peak Grad 1.5 mmHg TALAT Mean Pito. Index 0.80 cm2/m2 LVOT Mean Grad 0.7 mmHg LVOT VTI 0.065 m LVOT Diam s 1.95 cm AoV Vmax 0.83 m/s Velocity Ratio 0.73 AoV Mean Pito. 0.67 m/s AoV Peak Grad 2.8 mmHg LVOT SV 19.65 mL AoV Mean Grad 2.0 mmHg AoV VTI 0.123 m AoV Area VTI 1.60 cm2 AoV Area/ BSA (VTI) 0.77 cm/m2 Pulmonary Valve PV Vmax 0.65 (0.5-1.5 m/s) RVOT Peak Gr. 0.50 mmHg PV Peak Grad 1.7 mmHg RVOT Mean Gr. 0.25 mmHg PV Mean Grad 0.7 mmHg RVOT VTI 0.066 m PV VTI 0.069 m RVOT Vmax 0.35 m/s Tricuspid Valve TR Peak Grad 39.1 mmHg TR Vmax 3.13 m/s RA Pressure 8.00 mmHg RVSP (TR) 47.2 mmHg
[2021-12-27] MEDS: Furosemide 40 MG/4 ML VIAL IVP ×2 (09:27→15:21)
--- NOTE | 2021-12-27 10:13 | INITIAL_ITS ---
- If Service Date Differs Date of service: 12/27/21 Time of Service: 10:14 Care Management Initial Assess REASON FOR HOSPITALIZATION:: CHF, Pulmonary Edema, coagulopathy PAST MEDICAL HISTORY/PAST SURGICAL HISTORY:: All Active Problems. Hypoglycemia (Acute). Coagulopathy (Acute). CHF (congestive heart failure) (Chronic). Non- small cell cancer of right lung (Acute). HLD (hyperlipidemia) (Acute). HTN (hypertension) with goal to be determined (Acute). Atrial flutter (Acute). Acute UTI (Acute) PREVIOUS FUNCTIONAL STATUS/SOCIAL/FAMILY SUPPORTS:: Robby lives in [place]. His recently . They had four sons together: Mina, Dino, Leon and KIN. Mina and Dino live nearby, and Leon and KIN are . 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 He has a senior java web application developer that helps out once a week, and his two sons visit daily. He is independent at baseline. CURRENT FUNCTIONAL STATUS:: Robby was sitting up in a chair when CM met with him. He was pleasant and engaged in conversation. He reported that he feels fine, and would like to return home as soon as possible. Per MD, he will have an echo today, and was started on antibiotics. He is currently on supplemental O2, which he does not use at baseline. His liver function is being closely monitored. Per MD, he is not medically cleared for discharge. CM will continue to follow. ADVANCE DIRECTIVES:: Not on file. Has patient been provided with info about the portal/API?: Yes Did the patient sign up for the portal?: No CODE STATUS:: DNR/DNI INSURANCE COVERAGE / FINANCIAL ISSUES:: [facility]/ [employer] CURRENT HOME/COMMUNITY SERVICES/EQUIPMENT:: No services or equipment PRIMARY CARE PHYSICIAN:: Kevin Morales ([facility]) POTENTIAL DISCHARGE NEEDS:: Evaluations for further needs, follow up appointments. PATIENT/FAMILY EDUCATION NEEDS:: Review discharge instructions regarding activity levels and medications, discussion of self care needs including ask me three. ANTICIPATED BARRIERS TO DISCHARGE:: None identified. TRANSPORTATION:: Via private vehicle by family. PLAN:: Anticipate Robby will return home once he is medically cleared. He will transport via private vehicle by family. He will follow up with his PCP and discharge plan of care. CM will continue to follow.
--- NOTE | 2021-12-27 10:55 | DI.US_ITS ---
Exam(s) US ABDOMEN LIMITED EXAM: US ABDOMEN LIMITED CLINICAL HISTORY: Elevated INR, LFTs, bilirubin. Possible mets. TECHNIQUE: Ultrasound abdomen performed using standard protocol. COMPARISON: No exams were available for comparison FINDINGS: PANCREAS: Normal where visualized. LIVER: Normal. There are 2 small simple cysts in the left lobe of the liver. The larger measures 0. 9 cm. The smaller measures 0.7 cm. Hepatopedal flow in the Portal Vein. The liver measures in 14.7 length. GALLBLADDER: No evidence of cholelithiasis. No evidence of wall thickening. No pericholecystic fluid identified. BILIARY SYSTEM: Common bile duct measures < 7 mm. No intrahepatic biliary ductal dilation. HOLDEN'S SIGN: Negative. RIGHT KIDNEY: Kidney is normal in size. No evidence of renal calculi. No evidence of hydronephrosis. No renal mass or cyst identified. ASCITES: None seen. ABDOMINAL AORTA AND IVC: Visualized portions normal caliber. IMPRESSION: 1. No acute abnormality. 2. No evidence of a solid hepatic mass. 3. Two small simple hepatic cysts. DATA REPOSITORY:
[2021-12-27] MEDS: Doxycycline Hyclate 100 MG CAP PO ×2 (11:38→22:41)
[2021-12-27] MEDS: cefTRIAXone 1 GM/50 ML BAG IVPB (12:03)
[2021-12-27 15:20] LABS: Ammonia 16 umol/L (11-32)
[2021-12-27] MEDS: PHYTONADIONE 10 MG in Normal Saline 50 ML 200 MG IVPB (15:21)
[2021-12-27 15:30] VITALS: BP 104/63; PULSE 117; RESP 19; TEMP 36.3; O2SAT 96
--- NOTE | 2021-12-27 16:06 | PGE_ITS ---
Date of Service Date of service: 12/27/21 Time of Service: 16:07 Assessment and Plan Assessment and plan (1) CHF (congestive heart failure): Status: Chronic Assessment and plan: No documentation of known CHF. He endorses pedal edema for appx 6 mos. No CP, SOA, HARRISON, h/o CAD. Lasix 20mg IV in ED. Repeat another 20mg IV, then 40mg IV daily. Monitor creatinine. Echocardiogram with EF of 50%. + diastolic septal flattening consistent with right ventricular pressure overload. He is on metoprolol; continue. Heart Healthy diet. (2) Non-small cell cancer of right lung: Status: Acute Assessment and plan: Currently under the care of oncology. Last dose of Durvalumab was in October. CXR did show possible infiltrate. No Fever. WBC count did increase from 6.7 to 9.4 and Procalcitonin is 0.9. O2 saturations in the mid to upper 90's on 2L per [place] Will initiate Rocephin 1 gram Q24H. (3) HLD (hyperlipidemia): Status: Acute Assessment and plan: Continue atorvastatin. (4) HTN (hypertension) with goal to be determined: Status: Acute Assessment and plan: Cont metoprolol Monitor. (5) Atrial flutter: Status: Acute Assessment and plan: On Xarelto for AC; hold d/t current coagulopathy, but doubt this is why the INR is significantly elevated. Cont metoprolol. Rate controlled. (6) Coagulopathy: Status: Acute Assessment and plan: Bili improved from 3.3. to 2.8. AST increased from 114 to 1502. ALT increased from 80 to 705. INR increased from 6.3 to 7.2. Ammonia normal. Pt and son endorse that he hasn't drank alcohol for 4 months but did drink daily prior to that. No new medications or OTC supplements No wild muschrooms ingested. His last agent administered by his oncologist was Durvalumab in October. GI at [facility] [place] consulted; recommendations. 72 hours of NAC. IV Vitamin K 10mg daily for 3 days. UDS, ceruloplasm level, BRIGID, anti smooth muscle Ab, anti mitochondral Ab. Daily CMP and INR. Abd US pending. (7) Hypoglycemia: Status: Acute Assessment and plan: Likely an isolated event d/t no oral intake on day of occurrence. Symptoms corrected with administration of IV glucose. Not diabetic / on diabetic meds. FSBS levels normal today. Will d/c. Subjective Subjective Patient reports: no new complaints, feels better and afebrile; denies nausea, vomiting or shortness of breath Interval history since last seen: He states he would like to go home; doesn't just want to sit here while he feels good. Exam Narrative Exam Narrative: Sitting in chair. Pleasant and conversant Const General: cooperative Nutritional Appearance: overweight Orientation: alert, oriented to person and oriented to place Eyes General: appearance normal, both eyes and all related structures Sclera: sclerae normal Resp Effort & Inspection: normal respiratory effort Auscultation: clear to auscultation bilaterally Cardio Rate: tachycardic Rhythm: regular rhythm and abnormal rhythm GI Inspection: normal to inspection Palpation: soft and nontender Auscultation: normal bowel sounds Skin General skin exam: no rashes or lesions noted Neuro General: no focal motor deficits Cranial Nerves: facial strength normal Cognition: normal cognition Speech: speech normal Extrem General: no calf tenderness and edema Laterality: bilateral (1-2+) Psych Mental Status: mental status grossly normal Mood: congruent mood Affect: normal affect Objective Last Vital Signs Temp 36.5 C 12/27/21 08:06 Pulse 116 H 12/27/21 08:06 Resp 20 12/27/21 08:06 BP 121/89 12/27/21 08:06 Pulse Ox 96 12/27/21 08:06 Laboratory Results - last 24 hr 12/26/21 12/26/21 12/26/21 15:20 15:20 18:20 WBC RBC Hgb Hct MCV MCH MCHC RDW Plt Count MPV Immature Gran % Neutrophils % Lymphocytes % Monocytes % Eosinophils % Basophils % Nucleated RBC % Absolute Neutrophils Absolute Lymphocytes Absolute Monocytes Absolute Eosinophils Absolute Basophils PT 60.5 H INR 6.3 H* APTT 55.0 H D-Dimer 2035 H Sodium 138 Potassium 5.5 H Chloride 103 Carbon Dioxide 15.8 L Anion Gap 19.2 H BUN 26 H Creatinine 2.1 H Estimated GFR/1.73 m2 30.54 Glucose 50 L Calcium 9.1 Magnesium 2.0 Total Bilirubin 3.3 H AST 114 H ALT 80 H Alkaline Phosphatase 195 H Ammonia Troponin I < 50 < 50 NT-Pro-B Natriuret Pep 62157 H Total Protein 6.7 Albumin 3.0 L Procalcitonin Urine Color Urine Clarity Urine pH Ur Specific [place] Urine Protein Urine Ketones Urine Blood Urine Nitrite Urine Bilirubin Urine Urobilinogen Ur Leukocyte Esterase Urine RBC Urine WBC Ur Epithelial Cells Urine Crystals Urine Bacteria Urine Casts Urine Mucus Ur Culture Indicated? Urine Glucose COVID-19 Source SARS-CoV-2 (PCR) Add-On Test Request 12/26/21 12/27/21 12/27/21 18:25 01:55 06:12 WBC RBC Hgb Hct MCV MCH MCHC RDW Plt Count MPV Immature Gran % Neutrophils % Lymphocytes % Monocytes % Eosinophils % Basophils % Nucleated RBC % Absolute Neutrophils Absolute Lymphocytes Absolute Monocytes Absolute Eosinophils Absolute Basophils PT INR APTT D-Dimer Sodium 138 Potassium 3.7 D Chloride 104 Carbon Dioxide 26.1 Anion Gap 7.9 BUN 27 H Creatinine 2.0 H Estimated GFR/1.73 m2 32.31 Glucose 97 Calcium 8.4 L Magnesium Total Bilirubin 2.8 H AST 1502 H ALT 705 H Alkaline Phosphatase 162 H Ammonia Troponin I NT-Pro-B Natriuret Pep Total Protein 5.7 L Albumin 2.6 L Procalcitonin Urine Color Yellow Urine Clarity Cloudy Urine pH 5.5 Ur Specific [place] 1.020 Urine Protein 30 H Urine Ketones Negative Urine Blood Moderate H Urine Nitrite Negative Urine Bilirubin Negative Urine Urobilinogen 0.2 Ur Leukocyte Esterase Small H Urine RBC 5-10 H Urine WBC >50 H Ur Epithelial Cells Few Urine Crystals Few Amorphous Urine Bacteria Many Urine Casts 3-5 Coarse Granular Urine Mucus Negative Ur Culture Indicated? Yes Urine Glucose Negative COVID-19 Source Nasal/Nares SARS-CoV-2 (PCR) Negative Add-On Test Request 12/27/21 12/27/21 12/27/21 06:12 06:12 06:12 WBC 10.94 H D RBC 3.97 L Hgb 12.9 L D Hct 40.6 D MCV 102.3 H D MCH 32.5 MCHC 31.8 L RDW 15.4 H Plt Count 210 MPV 10.0 Immature Gran % 0.5 Neutrophils % 89.1 Lymphocytes % 3.3 Monocytes % 6.9 Eosinophils % 0.1 Basophils % 0.1 Nucleated RBC % 0 Absolute Neutrophils 9.75 H Absolute Lymphocytes 0.36 L Absolute Monocytes 0.75 Absolute Eosinophils 0.01 Absolute Basophils 0.01 PT 68.5 H INR 7.2 H* D APTT D-Dimer Sodium Potassium Chloride Carbon Dioxide Anion Gap BUN Creatinine Estimated GFR/1.73 m2 Glucose Calcium Magnesium Total Bilirubin AST ALT Alkaline Phosphatase Ammonia Troponin I NT-Pro-B Natriuret Pep Total Protein Albumin Procalcitonin Urine Color Urine Clarity Urine pH Ur Specific [place] Urine Protein Urine Ketones Urine Blood Urine Nitrite Urine Bilirubin Urine Urobilinogen Ur Leukocyte Esterase Urine RBC Urine WBC Ur Epithelial Cells Urine Crystals Urine Bacteria Urine Casts Urine Mucus Ur Culture Indicated? Urine Glucose COVID-19 Source SARS-CoV-2 (PCR) Add-On Test Request DONE 12/27/21 12/27/21 12/27/21 06:12 06:12 12:03 WBC RBC Hgb Hct MCV MCH MCHC RDW Plt Count MPV Immature Gran % Neutrophils % Lymphocytes % Monocytes % Eosinophils % Basophils % Nucleated RBC % Absolute Neutrophils Absolute Lymphocytes Absolute Monocytes Absolute Eosinophils Absolute Basophils PT INR APTT D-Dimer Sodium Potassium Chloride Carbon Dioxide Anion Gap BUN Creatinine Estimated GFR/1.73 m2 Glucose Calcium Magnesium Total Bilirubin AST ALT Alkaline Phosphatase Ammonia Troponin I NT-Pro-B Natriuret Pep Total Protein Albumin Procalcitonin 0.9 Urine Color Urine Clarity Urine pH Ur Specific [place] Urine Protein Urine Ketones Urine Blood Urine Nitrite Urine Bilirubin Urine Urobilinogen Ur Leukocyte Esterase Urine RBC Urine WBC Ur Epithelial Cells Urine Crystals Urine Bacteria Urine Casts Urine Mucus Ur Culture Indicated? Urine Glucose COVID-19 Source SARS-CoV-2 (PCR) Add-On Test Request DONE TNP 12/27/21 14:55 WBC RBC Hgb Hct MCV MCH MCHC RDW Plt Count MPV Immature Gran % Neutrophils % Lymphocytes % Monocytes % Eosinophils % Basophils % Nucleated RBC % Absolute Neutrophils Absolute Lymphocytes Absolute Monocytes Absolute Eosinophils Absolute Basophils PT INR APTT D-Dimer Sodium Potassium Chloride Carbon Dioxide Anion Gap BUN Creatinine Estimated GFR/1.73 m2 Glucose Calcium Magnesium Total Bilirubin AST ALT Alkaline Phosphatase Ammonia 16 Troponin I NT-Pro-B Natriuret Pep Total Protein Albumin Procalcitonin Urine Color Urine Clarity Urine pH Ur Specific [place] Urine Protein Urine Ketones Urine Blood Urine Nitrite Urine Bilirubin Urine Urobilinogen Ur Leukocyte Esterase Urine RBC Urine WBC Ur Epithelial Cells Urine Crystals Urine Bacteria Urine Casts Urine Mucus Ur Culture Indicated? Urine Glucose COVID-19 Source SARS-CoV-2 (PCR) Add-On Test Request PAWSS Have you Been Recently Intoxicated or Drunk Within the Last 30 days?: Yes Have you Ever Experienced Previous Episodes of Alcohol Withdrawal?: No Have you ever Experienced Withdrawal Seizures?: No Have you ever Experienced Delirium Tremens(DT)s?: No Have you ever undergone Alcohol Rehabilitation Treatment (i.e, inpt ot outpatient treatment programs)?: No Have you ever Experienced Blackouts?: No Have you ever Combined Alcohol with other Downers within the last 90 days?: No Have you ever Combined Alcohol with any other Substance of Abuse during the last 90 days?: No Positive Blood Alcohol level on Presentation? [PCS.BAL]: No Evidence of Increased Autonomic Activity (i.e. HR>120, tremor, sweating, agitation, nausea)?: No Result: 1
[2021-12-27 18:00] LABS: *AMPHETAMINES SCREEN URINE Negative (Negative); *BARBITURATES SCREEN URINE Negative (Negative); *BENZODIAZEPINES SCREEN URINE Negative (Negative); Cannabinoids THC Negative (Negative); Cocaine Screen,Urine Negative (Negative); METHADONE URINE SCREEN Negative (Negative); OPIATES URINE SCREEN Negative (Negative)
[2021-12-27 18:01] LABS: Tricyclic Antidepressants Negative (Negative)
[2021-12-27 21:02] VITALS: BP 104/68; PULSE 92; RESP 18; TEMP 37; O2SAT 95
[2021-12-27] MEDS: ALPRAZolam 0.5 MG TAB PO (21:19)
[2021-12-28 02:00] VITALS: BP 121/88; PULSE 116; RESP 14; TEMP 36.2; O2SAT 95
[2021-12-28 02:06] VITALS: BP 121/88; PULSE 117; RESP 20; TEMP 36.2; O2SAT 94
[2021-12-28 06:57] LABS: INR 2.9 (0.9-1.1); Prothrombin Time 28.5 sec (9.3-11.0)
[2021-12-28 07:13] LABS: ALT 917 U/L (16-63); Albumin 2.9 g/dL (3.4-5.0); Alkaline Phosphatase 213 U/L (46-116); Anion Gap 13.3 mmol/L (3-11); BUN 34 mg/dL (7-18); Bilirubin, Total 2.9 mg/dL (0.2-1.0); CO2 24.7 mmol/L (21.0-32.0); CREATININE 2.5 mg/dL (0.70-1.30); Calcium 8.6 mg/dL (8.5-10.1); Chloride 100 mmol/L (98-107); Estimated GFR 24.97 (mL/min/1.73m2); Glucose 126 mg/dL (74-106); Sodium 138 mmol/L (136-145); Total Protein 6.1 g/dL (6.4-8.2)
[2021-12-28 07:21] VITALS: BP 111/75; PULSE 122; RESP 20; TEMP 36.3; O2SAT 93
[2021-12-28 07:31] LABS: Potassium 2.9 mmol/L (3.5-5.1)
[2021-12-28 07:32] LABS: AST 1451 U/L (15-37)
[2021-12-28] MEDS: Furosemide 40 MG/4 ML VIAL IVP ×2 (08:17→15:55)
[2021-12-28] MEDS: Aspirin E.C. 81 MG TABEC PO (08:17)
[2021-12-28] MEDS: amLODIPine 5 MG TAB PO (08:17)
[2021-12-28] MEDS: Folic Acid 1 MG TAB PO (08:17)
[2021-12-28] MEDS: Metoprolol CR 50 MG TABCR PO (08:18)
[2021-12-28] MEDS: Omeprazole 20 MG CAPCR PO (08:19)
[2021-12-28] MEDS: PHYTONADIONE 10 MG in Normal Saline 50 ML 200 MG IVPB (08:20)
[2021-12-28] MEDS: Normal Saline Flush 10 ML SYR IVP ×2 (08:21→13:20)
[2021-12-28] MEDS: Senna TAB 2 TAB PO (08:21)
[2021-12-28] MEDS: cefTRIAXone 1 GM/50 ML BAG IVPB (09:31)
[2021-12-28] MEDS: Doxycycline Hyclate 100 MG CAP PO ×2 (09:33→21:32)
[2021-12-28] MEDS: POTASSIUM CHLORIDE 10 MEQ/100 ML BAG 100 MEQ IVPB ×2 (10:41→11:47)
[2021-12-28] MEDS: Potassium Chloride 20 MEQ TABCR PO (10:42)
[2021-12-28 10:47] VITALS: BP 95/67; PULSE 116
[2021-12-28 14:50] VITALS: BP 100/70; PULSE 116; RESP 20; TEMP 36.2; O2SAT 94
--- NOTE | 2021-12-28 15:42 | PDOC.CMPRO ---
- If Service Date Differs Date of service: 12/28/21 Time of Service: 15:42 Care Management Progress Note S/O: Robby was sitting up in his chair when CM met with him. He reported that per MD, he will be ready for discharge tomorrow. He stated that he feels fine, and is looking forward to returning home. Per report, his WBC was elevated today, so antibiotics were initiated. CM discussed his discharge plan, inquiring about the need for HH services, but he is not currently agreeable to having HH. He stated that he feels that he is doing ok at home with support from his two sons. CM will continue to follow. A: Robby is an 81 year old male admitted to [facility] on 12/26/21 for pulmonary edema, CHF and coagulopathy. P: Anticipate Robby will return home once medically cleared. He will be driven home via private vehicle by his son. He will follow up with his PCP and discharge plan of care. CM will continue to follow.
--- NOTE | 2021-12-28 17:08 | PGE_ITS ---
Date of Service Date of service: 12/28/21 Time of Service: 17:18 Assessment and Plan Assessment and plan (1) CHF (congestive heart failure): Status: Chronic Assessment and plan: No documentation of known CHF. He endorses pedal edema for appx 6 mos. No CP, SOA, HARRISON, h/o CAD. Lasix 40mg IV BID. Monitor creatinine. Echocardiogram with EF of 50%. + diastolic septal flattening consistent with right ventricular pressure overload. He is on metoprolol; continue. Heart Healthy diet. (2) Non-small cell cancer of right lung: Status: Acute Assessment and plan: Currently under the care of oncology. Last dose of Durvalumab was in October. CXR did show possible infiltrate. No Fever. WBC count did increase from 6.7 to 9.4 and Procalcitonin is 0.9. O2 saturations in the low 90's on RA. Continue Rocephin 1 gram Q24H. (3) HLD (hyperlipidemia): Status: Acute Assessment and plan: Continue atorvastatin. (4) HTN (hypertension) with goal to be determined: Status: Acute Assessment and plan: Cont metoprolol Monitor. (5) Atrial flutter: Status: Acute Assessment and plan: On Xarelto for AC; hold d/t current coagulopathy, but doubt this is why the INR is significantly elevated. Cont metoprolol. Rate controlled. (6) Coagulopathy: Status: Acute Assessment and plan: Bili trend: 3.3. > 2.8 > 2.9 AST trend 114 > 1502 >1451. ALT trend 80 > 705 > 917 INR: 6.3 > 7.2 > 2.9 Ammonia normal. UDA neg. Pt and son endorse that he hasn't drank alcohol for 4 months but did drink daily prior to that. No new medications or OTC supplements No wild muschrooms ingested. His last agent administered by his oncologist was Durvalumab in October. GI at [facility] [place] consulted again today. Cont. 72 hours of NAC. IV Vitamin K 10mg daily for 3 days. ceruloplasm level, BRIGID, anti smooth muscle Ab, anti mitochondral Ab all pending. No liver bx recommended at this time until pending test results are in. Daily CMP and INR. Abd US unremarkable. (7) Hypoglycemia: Status: Acute Assessment and plan: Likely an isolated event d/t no oral intake on day of occurrence. Symptoms corrected with administration of IV glucose. Not diabetic / on diabetic meds. FSBS levels normal so d/c'd. Subjective Subjective Patient reports: no new complaints, feels better and afebrile; denies nausea, vomiting or shortness of breath Interval history since last seen: He states he would like to go home. Son is present. Exam Narrative Exam Narrative: Sitting in chair. Pleasant and conversant Const General: cooperative Nutritional Appearance: overweight Orientation: alert, oriented x3, oriented to person and oriented to place Eyes General: appearance normal, both eyes and all related structures Sclera: sclerae normal Resp Effort & Inspection: normal respiratory effort Auscultation: clear to auscultation bilaterally Cardio Rate: tachycardic Rhythm: regular rhythm and abnormal rhythm GI Inspection: normal to inspection Palpation: soft and nontender Auscultation: normal bowel sounds Skin General skin exam: no rashes or lesions noted Neuro General: no focal motor deficits Cranial Nerves: facial strength normal Cognition: normal cognition Speech: speech normal Extrem General: no calf tenderness and edema Laterality: bilateral (Present but improved. ) Psych Mental Status: mental status grossly normal Mood: congruent mood Affect: normal affect Objective Last Vital Signs Temp 36.2 C L 12/28/21 14:50 Pulse 116 H 12/28/21 14:50 Resp 20 12/28/21 14:50 BP 100/70 12/28/21 14:50 Pulse Ox 94 12/28/21 14:50 Laboratory Results - last 24 hr 12/27/21 12/28/21 12/28/21 17:15 06:15 06:15 PT 28.5 H D INR 2.9 H D Sodium 138 Potassium 2.9 L Chloride 100 Carbon Dioxide 24.7 Anion Gap 13.3 H BUN 34 H Creatinine 2.5 H Estimated GFR/1.73 m2 24.97 Glucose 126 H Calcium 8.6 Total Bilirubin 2.9 H AST 1451 H ALT 917 H Alkaline Phosphatase 213 H Total Protein 6.1 L Albumin 2.9 L Urine Opiates Screen Negative Urine Methadone Screen Negative Ur Barbiturates Screen Negative Ur Tricyclics Screen Negative Ur Amphetamines Screen Negative U Benzodiazepines Scrn Negative Urine Cocaine Screen Negative Ur THC Screen Negative HSV Source Description HSV I DNA PCR HSV II DNA PCR VZV Specimen Descript VZV DNA (PCR) 12/28/21 12/28/21 Unknown Unknown PT INR Sodium Potassium Chloride Carbon Dioxide Anion Gap BUN Creatinine Estimated GFR/1.73 m2 Glucose Calcium Total Bilirubin AST ALT Alkaline Phosphatase Total Protein Albumin Urine Opiates Screen Urine Methadone Screen Ur Barbiturates Screen Ur Tricyclics Screen Ur Amphetamines Screen U Benzodiazepines Scrn Urine Cocaine Screen Ur THC Screen HSV Source Description Cancelled HSV I DNA PCR Cancelled HSV II DNA PCR Cancelled VZV Specimen Descript Cancelled VZV DNA (PCR) Cancelled PAWSS Have you Been Recently Intoxicated or Drunk Within the Last 30 days?: Yes Have you Ever Experienced Previous Episodes of Alcohol Withdrawal?: No Have you ever Experienced Withdrawal Seizures?: No Have you ever Experienced Delirium Tremens(DT)s?: No Have you ever undergone Alcohol Rehabilitation Treatment (i.e, inpt ot outpatient treatment programs)?: No Have you ever Experienced Blackouts?: No Have you ever Combined Alcohol with other Downers within the last 90 days?: No Have you ever Combined Alcohol with any other Substance of Abuse during the last 90 days?: No Positive Blood Alcohol level on Presentation? [PCS.BAL]: No Evidence of Increased Autonomic Activity (i.e. HR>120, tremor, sweating, agitation, nausea)?: No Result: 1
[2021-12-28] MEDS: ALPRAZolam 0.5 MG TAB PO (21:32)
[2021-12-28 23:27] VITALS: BP 100/69; PULSE 114; RESP 18; TEMP 36.7; O2SAT 95
[2021-12-29 06:47] LABS: Abs Immature Grans 0.02 10^3/uL (0.0-0.06); Absolute Basophil Count 0.02 10^3/uL (0.0-0.2); Absolute Eosinophil Count 0.03 10^3/uL (0.0-0.7); Absolute Lymphocyte Count 0.42 10^3/uL (1.2-3.4); Absolute Monocyte Count 0.65 10^3/uL (0.1-0.8); Absolute Neutrophil Count 5.88 10^3/uL (1.2-6.7); Basophils % 0.3; Eosinophils % 0.4; HCT 40.8 % (40.0-50.0); HGB 13.3 g/dL (13.5-17.5); Immature Grans % 0.3; MCH 32.4 pg (27.0-33.0); MCHC 32.6 % (32.0-36.0); MCV 99.5 fL (80-95); Monocytes % 9.3; Neutrophils % 83.7; Nucleated RBC 0 %; Platelet Count 186 10^3/uL (130-400); RDW 15.6 % (11.8-14.1); RDW-SD 57.1 fL; WBC 7.02 10^3/uL (4.4-10.8)
[2021-12-29 06:56] LABS: INR 1.8 (0.9-1.1); Prothrombin Time 17.5 sec (9.3-11.0)
[2021-12-29 07:04] LABS: ALT 611 U/L (16-63); AST 594 U/L (15-37); Albumin 2.5 g/dL (3.4-5.0); Alkaline Phosphatase 192 U/L (46-116); Anion Gap 8.3 mmol/L (3-11); BUN 36 mg/dL (7-18); Bilirubin, Total 2.2 mg/dL (0.2-1.0); CO2 30.7 mmol/L (21.0-32.0); Calcium 8.5 mg/dL (8.5-10.1); Chloride 101 mmol/L (98-107); Estimated GFR 32.31 (mL/min/1.73m2); Glucose 107 mg/dL (74-106); Sodium 140 mmol/L (136-145); Total Protein 5.7 g/dL (6.4-8.2)
[2021-12-29 07:09] LABS: Potassium 2.8 mmol/L (3.5-5.1)
[2021-12-29 07:21] VITALS: BP 101/70; PULSE 111; RESP 18; TEMP 36; O2SAT 90
[2021-12-29] MEDS: Senna TAB 2 TAB PO (08:10)
[2021-12-29] MEDS: Folic Acid 1 MG TAB PO (08:11)
[2021-12-29] MEDS: Omeprazole 20 MG CAPCR PO (08:11)
[2021-12-29] MEDS: Aspirin E.C. 81 MG TABEC PO (08:11)
[2021-12-29] MEDS: cefTRIAXone 1 GM/50 ML BAG IVPB (08:14)
[2021-12-29] MEDS: Normal Saline 500 ML 30 ML IV (08:16)
[2021-12-29] MEDS: Normal Saline Flush 10 ML SYR IVP ×2 (08:16→15:00)
[2021-12-29 08:47] VITALS: BP 92/70; PULSE 111
[2021-12-29] MEDS: Metoprolol CR 50 MG TABCR 75 MG PO (08:57)
[2021-12-29] MEDS: Doxycycline Hyclate 100 MG CAP PO (10:13)
--- NOTE | 2021-12-29 10:13 | CMPROGNOTE_ITS ---
- If Service Date Differs Date of service: 12/29/21 Time of Service: 10:13 Care Management Progress Note S/O: Robby was sitting up in his chair when CM met with him. He stated that he was having a more difficult day because he woke up and could not remember the last couple of days. He reported that he feels fine, though, as he has been reporting consistently. reported that [facility] would be consulted today. He is not medically cleared for discharge. CM will continue to follow. A: Robby is an 81 year old male admitted to [facility] on 12/26/21 for pulmonary edema, CHF and coagulopathy. P: Anticipate Robby will return home once medically cleared. He will be driven home via private vehicle by his son. He will follow up with his PCP and discharge plan of care. CM will continue to follow.
[2021-12-29] MEDS: PHYTONADIONE 10 MG in Normal Saline 50 ML 200 MG IVPB (10:15)
[2021-12-29] MEDS: POTASSIUM CHLORIDE 10 MEQ/100 ML BAG 100 MEQ IVPB ×3 (10:47→13:25)
[2021-12-29 11:10] VITALS: BP 89/63; PULSE 112; O2SAT 92
--- NOTE | 2021-12-29 11:11 | W.NUTRFU ---
Date of service: 12/29/21 Time of Service: 11:11 Nutrition Note NOTE: Robby following Heart Healthy Diet with excellent intake. Weight indicates obesity and stable. Not at nutritional risk at this time. Time Spent in Nutritional Counseling and Treatment: 0
--- NOTE | 2021-12-29 13:28 | CHAPLAIN ---
Robby was up in the chair when I visited. He said he is hoping to be discharged today, but hasn't yet talked with the hospitalist. He is from [place], but said his family has been staying in touch, calling often.
[2021-12-29 13:37] LABS: Hepatitis A Antibody IgM Negative (Negative); Hepatitis B Core Antibody Negative (Negative); Hepatitis B surface Ag Negative (Negative); Hepatitis C Ab w Rflx HCV PCR Negative (Negative)
[2021-12-29] MEDS: Omnipaque 350 MG/ML 100 ML BTL IJ (14:38)
--- NOTE | 2021-12-29 14:40 | DI.CT_ITS ---
Exam(s) CT ABDOMEN PELVIS W EXAM: CT ABDOMEN PELVIS W CLINICAL HISTORY: acute liver injury, known non small cell lung CA. TECHNIQUE: Imaging Protocol: Axial computed tomography images with coronal and sagittal reformatted images were created and reviewed CONTRAST MATERIAL: Intravenous: Omnipaque 350 Contrast volume:100 ml Oral: no COMPARISON: CR XR PORTABLE CHEST AP from 12/26/2021 US US ABDOMEN LIMITED from 12/27/2021 FINDINGS: ABDOMEN: There is a moderate-sized right pleural effusion. There is irregular pleural thickening bilaterally could represent pleural plat plaques. Pleural metastases are also possible. The heart is markedly e nlarged. No pericardial effusion. No left pleural effusion. There are a few circumscribed hypodens ities are noted in the liver consistent with cysts. The IVC is distended. There is some passive ngoc ous congestion of the liver. The hepatic veins are not yet opacified. This can be seen with poor ca rdiac output. Gallbladder is unremarkable. The stomach is distended with food. Spleen is normal in size. The pancreas, adrenals and kidneys there is severe atherosclerotic changes of the aorta and i liac arteries. No adenopathy. No free air or free fluid. PELVIS: Bladder: TURP defect. The bladder is extremely distended.. No calculi.No focal mass. Bowel: No obstruction or bowel wall thickening. .Increased quantity of stool. Peritoneal cavity: No ascites, collection or mesenteric inflammatory response. Bones: Within normal limits for age. Reproductive organs: Within normal limits. Lymph nodes: Unremarkable. Impression: Cardiomegaly and moderate size right pleural effusion. Bilateral pleural plaques versus pleural meta stases. Passive venous congestion of the liver which also shows a few cysts. No biliary dilatation. Markedly distended urinary bladder. RADIATION DOSE DELIVERED: 1,175.5mGy.cm Total DLP DATA REPOSITORY: All CT scans at this facility are submitted to the National Radiology Data Registry (NRDR) Dose Index Registry (DIR) with the [employer] ([employer]). RADIATION OPTIMIZATION: All CT scans at this facility use at least one of these dose optimization te chniques: automated exposure control; mA and/or kV adjustment per patient size (includes targeted exa ms where dose is matched to clinical indication); or iterative reconstruction.
[2021-12-29 15:47] LABS: ANA Interpretation Negative (Negative)
[2021-12-29 16:30] VITALS: BP 107/75; PULSE 112; RESP 12; TEMP 36.6; O2SAT 95
--- NOTE | 2021-12-29 18:07 | W.PM.PROGNOT ---
Date of Service Date of service: 12/29/21 Time of Service: 18:19 Assessment and Plan Assessment and plan (1) CHF (congestive heart failure): Status: Chronic Assessment and plan: No documentation of known CHF. He endorses pedal edema for appx 6 mos. No CP, SOA, HARRISON, h/o CAD. Lasix 40mg IV BID has been effective, but given soft BP will change to daily. Monitor creatinine. Echocardiogram with EF of 50%. + diastolic septal flattening consistent with right ventricular pressure overload. He is on metoprolol; continue at increased dose of 75mg daily. Heart Healthy diet. (2) Non-small cell cancer of right lung: Status: Acute Assessment and plan: Currently under the care of oncology. Last dose of Durvalumab was in October. CT abd pelvis; incidental finding of bilateral pleural plaques versus pleural mets. CXR did show possible infiltrate. No Fever. WBC count did increase from 6.7 to 9.4 and Procalcitonin is 0.9. O2 saturations in the low 90's on RA. Continue Rocephin 1 gram Q24H. (3) HLD (hyperlipidemia): Status: Acute Assessment and plan: Continue atorvastatin. (4) HTN (hypertension) with goal to be determined: Status: Acute Assessment and plan: Cont metoprolol Monitor. (5) Atrial flutter: Status: Acute Assessment and plan: On Xarelto for AC; hold d/t current coagulopathy. Discussed his case initially with hematology (prior to LFT's increasing significantly the day after admission). Cont metoprolol cr at 75mg daily. (6) Coagulopathy: Status: Acute Assessment and plan: Bili trend: 3.3. > 2.8 > 2.9 > 2.2 AST trend 114 > 1502 >1451 > 594. ALT trend 80 > 705 > 917 > 611 INR: 6.3 > 7.2 > 2.9 > 1.8 Ammonia normal. UDA neg. Pt and son endorse that he hasn't drank alcohol for 4 months but did drink daily prior to that. No new medications or OTC supplements No wild muschrooms ingested. His last agent administered by his oncologist was Durvalumab in October. GI at [facility] [place] consulted again today. Cont. 72 hours of NAC. IV Vitamin K 10mg daily for 3 days. ceruloplasm level, anti smooth muscle Ab, anti mitochondral Ab all pending. BRIGID neg. Viral hepatitis panel normal. No liver bx recommended at this time until pending test results are in. Received an oral dose of Vit K 2.5mg initially, then 10mg IV Vit K daily x 3 doses. Finished 72 H NAC infusion protocol for antioxidant effect. Daily CMP and INR. Abd US unremarkable. CT abdomen on 12/29: Cardiomegaly and moderate size right pleural effusion.? Bilateral pleural plaques versus pleural metastases. Passive venous congestion of the liver which also shows a few cysts.? No biliary dilatation. Markedly distended urinary bladder. (7) Hypoglycemia: Status: Acute Assessment and plan: Likely an isolated event d/t no oral intake on day of occurrence. Symptoms corrected with administration of IV glucose. Not diabetic / on diabetic meds. FSBS levels normal so d/c'd. Subjective Subjective Patient reports: no new complaints, feels better and afebrile; denies nausea, vomiting or shortness of breath Interval history since last seen: He states he would like to go home. Son is present. Exam Narrative Exam Narrative: Sitting in chair. Pleasant and conversant Const General: cooperative Nutritional Appearance: overweight Orientation: alert, oriented x3, oriented to person and oriented to place Eyes General: appearance normal, both eyes and all related structures Sclera: sclerae normal Resp Effort & Inspection: normal respiratory effort Auscultation: clear to auscultation bilaterally Cardio Rate: tachycardic Rhythm: regular rhythm and abnormal rhythm GI Inspection: normal to inspection Palpation: soft and nontender Auscultation: normal bowel sounds Skin General skin exam: no rashes or lesions noted Neuro General: no focal motor deficits Cranial Nerves: facial strength normal Cognition: normal cognition Speech: speech normal Extrem General: no calf tenderness and edema Laterality: bilateral (Present but improved. ) Psych Mental Status: mental status grossly normal Mood: congruent mood Affect: normal affect Objective Last Vital Signs Temp 36.6 C 12/29/21 16:30 Pulse 112 H 12/29/21 16:30 Resp 12 12/29/21 16:30 BP 107/75 12/29/21 16:30 Pulse Ox 95 12/29/21 16:30 Laboratory Results - last 24 hr 12/27/21 12/28/21 12/29/21 06:12 06:15 06:22 WBC RBC Hgb Hct MCV MCH MCHC RDW Plt Count MPV Immature Gran % Neutrophils % Lymphocytes % Monocytes % Eosinophils % Basophils % Nucleated RBC % Absolute Neutrophils Absolute Lymphocytes Absolute Monocytes Absolute Eosinophils Absolute Basophils PT 17.5 H D INR 1.8 H D Sodium Potassium Chloride Carbon Dioxide Anion Gap BUN Creatinine Estimated GFR/1.73 m2 Glucose Calcium Total Bilirubin AST ALT Alkaline Phosphatase Total Protein Albumin BRIGID Titer Not Applicable BRIGID Titer 2 Not Applicable BRIGID Titer 3 Not Applicable BRIGID Interpretation Negative Hepatitis A IgM Ab Negative Hep Bs Antigen Negative Hep B Core Total Ab Negative Hepatitis C Antibody Negative 12/29/21 12/29/21 06:22 06:22 WBC 7.02 RBC 4.10 L Hgb 13.3 L Hct 40.8 MCV 99.5 H MCH 32.4 MCHC 32.6 RDW 15.6 H Plt Count 186 MPV 10.0 Immature Gran % 0.3 Neutrophils % 83.7 Lymphocytes % 6.0 Monocytes % 9.3 Eosinophils % 0.4 Basophils % 0.3 Nucleated RBC % 0 Absolute Neutrophils 5.88 Absolute Lymphocytes 0.42 L Absolute Monocytes 0.65 Absolute Eosinophils 0.03 Absolute Basophils 0.02 PT INR Sodium 140 Potassium 2.8 L* Chloride 101 Carbon Dioxide 30.7 Anion Gap 8.3 BUN 36 H Creatinine 2.0 H Estimated GFR/1.73 m2 32.31 Glucose 107 H Calcium 8.5 Total Bilirubin 2.2 H AST 594 H ALT 611 H Alkaline Phosphatase 192 H Total Protein 5.7 L Albumin 2.5 L BRIGID Titer BRIGID Titer 2 BRIGID Titer 3 BRIGID Interpretation Hepatitis A IgM Ab Hep Bs Antigen Hep B Core Total Ab Hepatitis C Antibody PAWSS Have you Been Recently Intoxicated or Drunk Within the Last 30 days?: Yes Have you Ever Experienced Previous Episodes of Alcohol Withdrawal?: No Have you ever Experienced Withdrawal Seizures?: No Have you ever Experienced Delirium Tremens(DT)s?: No Have you ever undergone Alcohol Rehabilitation Treatment (i.e, inpt ot outpatient treatment programs)?: No Have you ever Experienced Blackouts?: No Have you ever Combined Alcohol with other Downers within the last 90 days?: No Have you ever Combined Alcohol with any other Substance of Abuse during the last 90 days?: No Positive Blood Alcohol level on Presentation? [PCS.BAL]: No Evidence of Increased Autonomic Activity (i.e. HR>120, tremor, sweating, agitation, nausea)?: No Result: 1
[2021-12-29 19:46] VITALS: BP 136/70; PULSE 113; RESP 20; TEMP 36.4; O2SAT 92
[2021-12-29] MEDS: ALPRAZolam 0.5 MG TAB PO (21:14)
[2021-12-29 23:05] VITALS: BP 100/70; PULSE 110; RESP 20; TEMP 36.6; O2SAT 91
[2021-12-30 01:55] VITALS: BP 102/73; PULSE 110; RESP 18; TEMP 35.5; O2SAT 94
[2021-12-30 06:27] LABS: ALT 423 U/L (16-63); AST 289 U/L (15-37); Albumin 2.4 g/dL (3.4-5.0); Alkaline Phosphatase 193 U/L (46-116); Anion Gap 9.1 mmol/L (3-11); BUN 33 mg/dL (7-18); Bilirubin, Total 1.9 mg/dL (0.2-1.0); CO2 27.9 mmol/L (21.0-32.0); CREATININE 1.6 mg/dL (0.70-1.30); Calcium 8.3 mg/dL (8.5-10.1); Chloride 101 mmol/L (98-107); Glucose 98 mg/dL (74-106); Potassium 3.3 mmol/L (3.5-5.1); Sodium 138 mmol/L (136-145); Total Protein 5.6 g/dL (6.4-8.2)
[2021-12-30 07:06] LABS: INR 1.3 (0.9-1.1)
[2021-12-30 07:25] VITALS: BP 116/83; PULSE 110; RESP 17; TEMP 35.7; O2SAT 93
[2021-12-30 07:36] LABS: Magnesium 1.5 mg/dL (1.8-2.4)
[2021-12-30] MEDS: cefTRIAXone 1 GM/50 ML BAG IVPB (07:37)
[2021-12-30] MEDS: Omeprazole 20 MG CAPCR PO (07:38)
[2021-12-30] MEDS: Normal Saline Flush 10 ML SYR IVP (07:38)
--- NOTE | 2021-12-30 09:03 | PDOC.CMPRO ---
- If Service Date Differs Date of service: 12/30/21 Time of Service: 09:03 Care Management Progress Note S/O: Robby was sitting up in his chair when CM met with him. He reported that he is feeling good, and hoping to be discharged home tomorrow. Per report, his liver function continues to be closely monitored. His pneumonia is being treated with rocephin and doxycycline, tomorrow will be day 5. Once he is ready for discharge, he will have new HH RN through [facility]. CM called to inform [facility] of the potential new orders, which could start over the weekend, if he is discharge ready. CM will continue to follow. A: Robby is an 81 year old male admitted to [facility] on 12/26/21 for pulmonary edema, CHF and coagulopathy. P: Anticipate Robby will return home once medically cleared. He will have new HH RN through [email or web address]. He will be driven home via private vehicle by his son. He will follow up with his PCP and discharge plan of care. CM will continue to follow.
[2021-12-30] MEDS: Polyethylene Glycol 3350 17 GM PACKET PO (09:55)
[2021-12-30] MEDS: Metoprolol CR 50 MG TABCR 75 MG PO (09:55)
[2021-12-30] MEDS: Torsemide 20 MG TAB PO (09:56)
[2021-12-30] MEDS: Aspirin E.C. 81 MG TABEC PO (09:56)
[2021-12-30] MEDS: Senna TAB 2 TAB PO (09:57)
[2021-12-30] MEDS: Folic Acid 1 MG TAB PO (09:57)
[2021-12-30] MEDS: Potassium Chloride 20 MEQ TABCR PO (09:57)
--- NOTE | 2021-12-30 11:39 | W.PM.PROGNOT ---
Date of Service Date of service: 12/30/21 Time of Service: 11:39 Assessment and Plan Assessment and plan (1) CHF (congestive heart failure): Status: Chronic Assessment and plan: No documentation of known CHF. He endorses pedal edema for appx 6 mos. No CP, SOA, HARRISON, h/o CAD. Patient had been on lasix 40 mg iv bid but has been changed to oral lasix. I have changed this to torsemide 20 mg daily and added spironolactone 25 mg daily. Monitor creatinine. Echocardiogram with EF of 50%. + diastolic septal flattening and paradoxical septal motion consistent with right ventricular pressure and volume overload along w/ dilated RV that is hypocontractile He is on metoprolol currently at 75 mg daily. Will increase to 100 mg daily to control afib rate. Spironolactone added to his torsemide for diureses as he had evidence of ascites and bilateral leg edema. Heart Healthy diet. (2) Non-small cell cancer of right lung: Status: Acute Assessment and plan: Currently under the care of oncology. Last dose of Durvalumab was in October. CT abd pelvis; incidental finding of bilateral pleural plaques versus pleural mets. CXR did show possible infiltrate. No Fever. WBC count did increase from 6.7 to 9.4 and Procalcitonin is 0.9. O2 saturations in the low 90's on RA. Continue Rocephin 1 gram Q24H. (3) HLD (hyperlipidemia): Status: Acute Assessment and plan: Continue atorvastatin. (4) HTN (hypertension) with goal to be determined: Status: Acute Assessment and plan: Cont metoprolol at increased dose of 100 mg Toprol XL daily Monitor. (5) Coagulopathy: Status: Acute Assessment and plan: Bili trend: 3.3. > 2.8 > 2.9 > 2.2>1.9 AST trend 114 > 1502 >1451 > 594. ALT trend 80 > 705 > 917 > 611>289 INR: 6.3 > 7.2 > 2.9 > 1.8>1.3 Ammonia normal. UDA neg. Pt and son endorse that he hasn't drank alcohol for 4 months but did drink daily prior to that. No new medications or OTC supplements No wild muschrooms ingested. His last agent administered by his oncologist was Durvalumab in October. GI at [facility] [place] [place] consulted by Dr. Dobbins yesterday. . Cont. 72 hours of NAC (will finish his last dose today). IV Vitamin K 10mg daily for 3 days. ceruloplasm level, anti smooth muscle Ab, anti mitochondral Ab all pending. BRIGID neg. Viral hepatitis panel normal. No liver bx recommended at this time until pending test results are in. Received an oral dose of Vit K 2.5mg initially, then 10mg IV Vit K daily x 3 doses. Finish 72 H NAC infusion protocol for antioxidant effect. Daily CMP and INR. Abd US unremarkable. CT abdomen on 12/29: Cardiomegaly and moderate size right pleural effusion.? Bilateral pleural plaques versus pleural metastases. Passive venous congestion of the liver which also shows a few cysts.? No biliary dilatation. Markedly distended urinary bladder. continue to hold his Xarelto; refer to [facility] [place] [place] GI upon discharge (6) Community acquired pneumonia: Status: Acute Assessment and plan: presumed diagnosis based upon his CXR, reports of coughing up bloody purulent mucous prior to admission and his inflammatory markers (WBC of 10,900 on admission which has improved and his procalcitonin of 0.9) I will repeat his labs in the morning but if no fevers overnight and if his LFT continue to improve then he could potentially return home tomorrow or Sunday at the latest. (7) Atrial flutter: Status: Acute Assessment and plan: On Xarelto for anticoagulation; hold d/t current coagulopathy. Discussed his case initially with hematology (prior to LFT's increasing significantly the day after admission). Cont metoprolol cr at 100 mg daily. (8) Hypoglycemia: Status: Acute Assessment and plan: Likely an isolated event d/t no oral intake on day of occurrence. Symptoms corrected with administration of IV glucose. Not diabetic / on diabetic meds. FSBS levels normal so d/c'd. (9) Discharge planning issues: Status: Acute Assessment and plan: patient lives in his own home and plans to return to the same. He reports getting help from his daughter in law. We will set him up w/ home health services including nursing, P.T. upon discharge. Likely discharge home in the next 24 to 48hr. I would like him to complete 5 days of antibiotics for CAP and complete his NAC treatment of his acute nonviral hepatitis and liver failure. Subjective Subjective Interval history since last seen: Patient denies any shortness of breath cough or sputum production and he remains afebrile. He has not had a bowel movement a couple days. Continues to have bilateral leg edema and abdominal edema. Exam Narrative Exam Narrative: Elderly male sitting up in his chair watching TV not requiring any oxygen. He is alert and oriented. Lungs with some rhonchi anteriorly particularly at the right base and some end expiratory wheezes. Posteriorly has some fine rales Heart is irregularly irregular slightly tachycardic Abdomen soft distended with positive fluid wave consistent with ascites Normal bowel sounds nontender to palpation Bilateral leg edema 2-3+ pitting edema of both pretibial surfaces and feet. Arms with ecchymoses bilaterally Objective Last Vital Signs Temp 35.7 C L 12/30/21 07:25 Pulse 110 H 12/30/21 07:25 Resp 17 12/30/21 07:25 BP 116/83 12/30/21 07:25 Pulse Ox 93 12/30/21 07:25 Laboratory Results - last 24 hr 12/27/21 12/28/21 12/30/21 06:12 06:15 06:01 PT 13.0 H INR 1.3 H Sodium Potassium Chloride Carbon Dioxide Anion Gap BUN Creatinine Estimated GFR/1.73 m2 Glucose Calcium Magnesium Total Bilirubin AST ALT Alkaline Phosphatase Total Protein Albumin BRIGID Titer Not Applicable BRIGID Titer 2 Not Applicable BRIGID Titer 3 Not Applicable BRIGID Interpretation Negative Hepatitis A IgM Ab Negative Hep Bs Antigen Negative Hep B Core Total Ab Negative Hepatitis C Antibody Negative 12/30/21 12/30/21 06:01 06:01 PT INR Sodium 138 Potassium 3.3 L Chloride 101 Carbon Dioxide 27.9 Anion Gap 9.1 BUN 33 H Creatinine 1.6 H Estimated GFR/1.73 m2 41.80 Glucose 98 Calcium 8.3 L Magnesium 1.5 L Total Bilirubin 1.9 H AST 289 H ALT 423 H Alkaline Phosphatase 193 H Total Protein 5.6 L Albumin 2.4 L BRIGID Titer BRIGID Titer 2 BRIGID Titer 3 BRIGID Interpretation Hepatitis A IgM Ab Hep Bs Antigen Hep B Core Total Ab Hepatitis C Antibody PAWSS Have you Been Recently Intoxicated or Drunk Within the Last 30 days?: Yes Have you Ever Experienced Previous Episodes of Alcohol Withdrawal?: No Have you ever Experienced Withdrawal Seizures?: No Have you ever Experienced Delirium Tremens(DT)s?: No Have you ever undergone Alcohol Rehabilitation Treatment (i.e, inpt ot outpatient treatment programs)?: No Have you ever Experienced Blackouts?: No Have you ever Combined Alcohol with other Downers within the last 90 days?: No Have you ever Combined Alcohol with any other Substance of Abuse during the last 90 days?: No Positive Blood Alcohol level on Presentation? [PCS.BAL]: No Evidence of Increased Autonomic Activity (i.e. HR>120, tremor, sweating, agitation, nausea)?: No Result: 1
[2021-12-30 12:53] VITALS: BP 90/60; PULSE 110
[2021-12-30] MEDS: Spironolactone 25 MG TAB PO (12:53)
[2021-12-30 14:56] LABS: Mitochondrial Ab, M2 <0.1 U
[2021-12-30 15:20] VITALS: BP 92/61; PULSE 92; RESP 16; TEMP 36.3; O2SAT 94
[2021-12-30 15:38] LABS: Smooth Muscle Ab Screen Negative (Negative)
--- NOTE | 2021-12-30 16:05 | IN_ITS ---
Date of service: 12/30/21 Time of Service: 16:05 PT Notes Visit Reasons: Pulmonary Edema, Coagulopathy Physical Therapy Inpatient Initial Evaluation Date: 12/30/2021 Referring Doctor: Eligio Lemons MD PT Orders: PT CONSULT: Safety consult for D/C Precautions: Fall. Standard. Activity as tolerated. 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 PMHX: All Active Problems?(Updated 12/26/21 @ 18:30 by Jerry Dobbins MD) Hypoglycemia (Acute) Coagulopathy (Acute) CHF (congestive heart failure) (Chronic) Non-small cell cancer of right lung (Acute) HLD (hyperlipidemia) (Acute) HTN (hypertension) with goal to be determined (Acute) Atrial flutter (Acute) Acute UTI (Acute) Social History/Home Situation: Lives alone in a private home with 10 steps to enter with rails on both sides. Patient states that he has a cleaning lady who comes in once a week for house chores and laundry. States that he still is able to perform all his grocery shopping and transportation needs. Equipment Owned/DME: None Subjective: Agreeable to PT consult after extensive encouragement by this PT and by nurse Rome. Objective: General Observation: IV in the left UE. Patient supine in bed. Mental Status: Alert and oriented as to person, place, time, and purpose. Able to pay attention, focus, and respond appropriately. Pain: Denies ROM: Right Upper Extremity: Shoulder Flexion WFL. Shoulder abduction WFL. Elbow flexion WFL. Wrist flexion WFL. Functional opening and closing of hand WFL. Left Upper Extremity: Shoulder Flexion WFL. Shoulder abduction WFL. Elbow flexion WFL. Wrist flexion WFL. Functional opening and closing of hand WFL. Right Lower Extremity: Hip flexion WFL. Hip abduction WFL. Knee flexion WFL. Ankle dorsiflexion WFL. Ankle plantarflexion WFL. Left Lower Extremity: Hip flexion WFL. Hip abduction WFL. Knee flexion WFL. Ankle dorsiflexion WFL. Ankle plantarflexion WFL. Strength: Right Upper Extremity: Shoulder flexors 4/5. Shoulder abductors 4/5. Elbow flexors 4/5. Elbow extensors 4/5. Log Processor Operator strong. Left Upper Extremity: Shoulder flexors 4/5. Shoulder abductors 4/5. Elbow flexors 4/5. Elbow extensors 4/5. Log Processor Operator strong. Right Lower Extremity: Hip flexors 4/5. Hip abductors 4/5. Knee flexors 4/5. Knee extensors 4/5. Ankle dorsiflexors 4/5. Ankle plantarflexors 4/5. Left Lower Extremity: Hip flexors 4/5. Hip abductors 4/5. Knee flexors 4/5. Knee extensors 4/5. Ankle dorsiflexors 4/5. Ankle plantarflexors 4/5. Bed Mobility/Transfers: Rolling supervision Supine to sit supervision Sit to supine supervision Sit to stand supervision Stand to sit supervision Bed to reclining chair supervision Gait: Instructed patient with level surface ambulation of 50 feet requiring standby assist using front wheeled walker. Denies headache, chest pain, and dizziness throughout session. Mild shortness of breath that resolved with rest. Balance: Static Sitting: Normal Dynamic Sitting: Normal Static Standing: Good Dynamic Standing: Fair Special Tests: Mobility Limitations Standardized Measure [facility] AM-PAC 6 clicks Basic Mobility Inpatient Short Form: Raw Score: 23 CMS Score: 11% deficit Informed Consent/Education: Patient was instructed in purpose of PT consult and plan of care. Agreeable to proceed with established PT POC to achieve personal goals. Assessment: Patient requires the use of a front wheeled walker to facilitate energy conservation and increased ability of walking. However patient states that he does not need to walk too far inside his house and will not need a front wheeled walker. Patient will be seen by PT tomorrow morning to include stair training as patient has 10 steps at home. Patient presents with clinical signs and symptoms consistent with current/admitting diagnoses that have resulted to mobility limitations, gait i nstability, generalized weakness, and overall ADL decline as demonstrated by the following impairment level findings: 1. Decreased strength to BUE/LE major muscle groups Impairments are contributing to the following functional limitations: 1. Difficulty with ambulation without assistive device 2. Difficulty with managing steps alone safely Patient is assessed as a 30006 moderate complexity based on the following: History: 81-year-old malewith past medical history as indicated above Examination: Demonstrable impairment in strength, balance, and mobility level with underlying impairments and functional limitations as exhibited above as well as deficit score of 11% utilizing the [facility] Mobility Inpatient Short Form Presentation: Evolving Decision Makin moderate complexity Goals: Goals X1 week 1. Supine-Sit independent 2. Sit-Supine independent 3. Sit-Stand independent 4. Stand-Sit independent with no AD 5. Bed-Chair independent with no AD 6. Chair-Bed independent with no AD 7. Independent gait on level surface with use of no AD for at least 100feet without report of pain nor dyspnea 8. Independent stair negotiation while holding onto B rails for at least 10steps without report of pain nor dyspnea 9. Independent with home exercise program 10. Good static and dynamic standing balance/tolerance Plan of Care/Treatment Plan: 1-2x/day, 7 days/week x 1 week. Plan of care has been reviewed with the SOLID TIRE TUBER MACHINE OPERATOR providing the service under Physical Therapy direction. Initiate Physical Therapy intervention for pain management as needed, strengthening, bed mobility, transfers, gait, stairs, balance training, and use of assistive device. DISCHARGE RECOMMENDATIONS: May benefit from the use of a front wheeled walker but patient is resistant to said recommendation. Patient will benefit from home health PT services in order to progress mobility level using least restrictive assistive ambulatory device, assess home safety, identify additional equipment needs, and establish a functional maintenance program that will increase ability of patient to remain at home. TREATMENT CODE/TIME: 80063 x 20 minutes, 60814 x 14 minutes beginning at 16:05 PM. Thank you for the opportunity to participate in the care of this patient. Sinai Morrow PT, DPT, CLT [facility] [place], [place]
[2021-12-30] MEDS: ALPRAZolam 0.5 MG TAB PO (21:14)
[2021-12-30 23:10] VITALS: BP 108/74; PULSE 109; RESP 18; TEMP 36.6; O2SAT 90
[2021-12-30 23:15] LABS: Lab Add On Test DONE
[2021-12-31 06:28] LABS: Abs Immature Grans 0.04 10^3/uL (0.0-0.06); Absolute Basophil Count 0.02 10^3/uL (0.0-0.2); Absolute Eosinophil Count 0.03 10^3/uL (0.0-0.7); Absolute Lymphocyte Count 0.36 10^3/uL (1.2-3.4); Absolute Monocyte Count 0.62 10^3/uL (0.1-0.8); Basophils % 0.3; Eosinophils % 0.5; HCT 40.8 % (40.0-50.0); HGB 12.7 g/dL (13.5-17.5); Immature Grans % 0.7; Lymphocytes % 5.9; MCH 31.8 pg (27.0-33.0); MCHC 31.1 % (32.0-36.0); MPV 10.2 fL (8.0-11.0); Monocytes % 10.2; Neutrophils % 82.4; Nucleated RBC 0 %; Platelet Count 179 10^3/uL (130-400); RDW-SD 59.9 fL; WBC 6.07 10^3/uL (4.4-10.8)
[2021-12-31 06:50] LABS: INR 1.2 (0.9-1.1); Prothrombin Time 11.6 sec (9.3-11.0)
[2021-12-31 07:02] LABS: ALT 348 U/L (16-63); AST 171 U/L (15-37); Albumin 2.6 g/dL (3.4-5.0); Alkaline Phosphatase 211 U/L (46-116); Anion Gap 8.1 mmol/L (3-11); BUN 34 mg/dL (7-18); Bilirubin, Total 1.7 mg/dL (0.2-1.0); CO2 30.9 mmol/L (21.0-32.0); CREATININE 1.5 mg/dL (0.70-1.30); Calcium 9.1 mg/dL (8.5-10.1); Chloride 99 mmol/L (98-107); Estimated GFR 45.03 (mL/min/1.73m2); Glucose 95 mg/dL (74-106); Sodium 138 mmol/L (136-145); Total Protein 6.1 g/dL (6.4-8.2)
[2021-12-31 07:12] LABS: Procalcitonin 0.2 ng/mL
[2021-12-31 07:31] VITALS: BP 113/81; PULSE 110; RESP 17; TEMP 36.1; O2SAT 93
[2021-12-31] MEDS: Polyethylene Glycol 3350 17 GM PACKET PO (08:32)
[2021-12-31] MEDS: cefTRIAXone 1 GM/50 ML BAG IVPB (08:32)
[2021-12-31] MEDS: Senna TAB 2 TAB PO (08:33)
[2021-12-31] MEDS: Aspirin E.C. 81 MG TABEC PO (08:33)
[2021-12-31] MEDS: Omeprazole 20 MG CAPCR PO (08:33)
[2021-12-31] MEDS: Torsemide 20 MG TAB PO (08:33)
[2021-12-31] MEDS: Metoprolol CR 50 MG TABCR 100 MG PO (08:34)
[2021-12-31] MEDS: Folic Acid 1 MG TAB PO (08:34)
[2021-12-31] MEDS: Spironolactone 25 MG TAB PO (08:34)
--- NOTE | 2021-12-31 11:34 | PT.INNT ---
PT Notes Visit Reasons: Pulmonary Edema, Coagulopathy PT refused walking and or exercises today.
--- NOTE | 2021-12-31 14:37 | PGE_ITS ---
Date of Service Date of service: 12/31/21 Time of Service: 14:37 Assessment and Plan Assessment and plan (1) CHF (congestive heart failure): Status: Chronic Assessment and plan: I do not feel that he is adequately diuresing w/ oral diuretics alone. I will resume iv lasix and cont. his spironolactone. Monitor urine output and daily wts. I advised both his son and the patient that he needs to avoid adding salt to his foods (which he has been doing at home). Qualifiers: Heart failure type: right-sided Heart failure chronicity: acute on chronic Qualified Code(s): I50.813 - Acute on chronic right heart failure (2) Non-small cell cancer of right lung: Status: Acute Assessment and plan: Currently under the care of oncology. Last dose of Durvalumab was in October. CT abd pelvis; incidental finding of bilateral pleural plaques versus pleural mets. CXR did show possible infiltrate. No Fever. WBC count did increase from 6.7 to 9.4 and Procalcitonin is 0.9. O2 saturations in the low 90's on RA. Continue Rocephin 1 gram Q24H. add doxycycline 100 mg bid. (3) HLD (hyperlipidemia): Status: Acute Assessment and plan: Continue atorvastatin. (4) HTN (hypertension) with goal to be determined: Status: Acute Assessment and plan: Cont metoprolol at increased dose of 15- mg Toprol XL daily Monitor. (5) Coagulopathy: Status: Acute Assessment and plan: Bili trend: 3.3. > 2.8 > 2.9 > 2.2>1.9>1.7 AST trend 114 > 1502 >1451 > 594>289>171. ALT trend 80 > 705 > 917 > 611>423>348 INR: 6.3 > 7.2 > 2.9 > 1.8>1.3>1.2 Ammonia normal. UDA neg. Pt and son endorse that he hasn't drank alcohol for 4 months but did drink daily prior to that. No new medications or OTC supplements No wild muschrooms ingested. His last agent administered by his oncologist was Durvalumab in October. GI at [facility] consulted by Dr. Dobbins . . S/P 72 hours of NAC (will finished 12/30/21). IV Vitamin K 10mg daily for 3 days. ceruloplasm level, anti smooth muscle Ab, anti mitochondral Ab all negative. BRIGID neg. Viral hepatitis panel normal. No liver bx recommended at this time until pending test results are in. Received an oral dose of Vit K 2.5mg initially, then 10mg IV Vit K daily x 3 doses.completed on 12/30/21. Finish 72 H NAC infusion protocol for antioxidant effect. completed on 12/30/21. Daily CMP and INR. Abd US unremarkable. CT abdomen on 12/29: Cardiomegaly and moderate size right pleural effusion.? Bilateral pleural plaques versus pleural metastases. Passive venous congestion of the liver which also shows a few cysts.? No biliary dilatation. Markedly distended urinary bladder. continue to hold his Xarelto; refer to [facility] GI upon discharge. I have recommended to the patient's son that his father should also follow up w/ cardiology and discuss having a Watchman procedure to close the atrial appendage in order to reduce his risk of atrial thrombus and potential stroke. This would avoid the need for anticoagulants. I have reviewed the patient course and treatment w/ his son explaining that his father's acute liver injury is probably d/t congestive hepatopathy from his heart failure. He has non evvidence for autoimmune nor infectious hepatitis and no neoplasm or infiltrative disease seen on imaging. 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 (6) Community acquired pneumonia: Status: Acute Assessment and plan: Continue Rocephin and doxycycline for 2 more days for total of 7 days. Check follow-up chest x-ray. Procalcitonin level is declining from 0.9 down to 0.2. Encourage patient to use I-S and Acapella. (7) Atrial flutter: Status: Acute Assessment and plan: Patient is on 2 beta-blockers he is on Inderal LA for his essential tremors and he takes Toprol-XL for his atrial flutter. I was going to discontinue his Inderal LA until he found out about the essential tremors. I will be adjusting his Toprol-XL upward to 150 mg daily. I have ordered telemetry monitoring to monitor his rate and rhythm response. (8) Discharge planning issues: Status: Acute Assessment and plan: patient lives in his own home and plans to return to the same. He reports getting help from his daughter in law. We will set him up w/ home health services including nursing, P.T. upon discharge. Likely discharge home in the next 24 to 48hr. I would like him to complete 5 days of antibiotics for CAP and complete his NAC treatment of his acute nonviral hepatitis and liver failure. I will extend his ATB x 2 more days. NAC has been completed. will monitor LFT and INR daily. Subjective Subjective Interval history since last seen: Patient denies dyspnea or CP. He is complaining of constipation despite having a good BM yesterday, none today so far. I met w/ the patient son, Jameson, and discussed the patient's conditions and workup and treatment in detail in particular the patients liver insufficiency, coagulopathy and right heart failure. I recommended that the patient follow up w/ a sand analyst upon discharge. I am recommending he remain for another 2 days while we work on further diuresing. As for his liver insufficiency he has responded well to the N.A.C. and his coagulopathy had improved. I am recommending that he not return on a DOAC but discuss w/ cardiology having a Watchman procedure for atrial appendage closure. Patient is high risk for bleeding from his liver insufficiency and frequent falls. I explained to Jameson that I would like his father to work more w/ P.T. to improve his gait and balance before returning home. Exam Narrative Exam Narrative: Elderly white male sitting up in his chair talking with his son. He is alert and oriented in no acute distress. Lungs with bibasilar rales along with some scattered diffuse rhonchi Heart is regular but tachycardic do not appreciate a murmur rub Abdomen is distended with positive bowel sounds positive ascitic fluid wave. Feet and legs with 3+ pitting edema from his knees down to his feet. Superficial skin ulcer over the left tibia is covered with a Mepilex. Objective Last Vital Signs Temp 36.1 C L 12/31/21 07:31 Pulse 110 H 12/31/21 07:31 Resp 17 12/31/21 07:31 BP 113/81 12/31/21 07:31 Pulse Ox 93 12/31/21 07:31 Laboratory Results - last 24 hr 12/28/21 12/28/21 12/30/21 06:15 06:15 06:01 WBC RBC Hgb Hct MCV MCH MCHC RDW Plt Count MPV Immature Gran % Neutrophils % Lymphocytes % Monocytes % Eosinophils % Basophils % Nucleated RBC % Absolute Neutrophils Absolute Lymphocytes Absolute Monocytes Absolute Eosinophils Absolute Basophils PT INR Sodium Potassium Chloride Carbon Dioxide Anion Gap BUN Creatinine Estimated GFR/1.73 m2 Glucose Calcium Total Bilirubin AST ALT Alkaline Phosphatase Total Protein Albumin Procalcitonin Mitochondria M2 Ab <0.1 Anti-Smooth Muscle Ab Negative Add-On Test Request DONE 12/31/21 12/31/21 12/31/21 06:17 06:17 06:17 WBC 6.07 RBC 4.00 L Hgb 12.7 L Hct 40.8 MCV 102.0 H MCH 31.8 MCHC 31.1 L RDW 16.0 H Plt Count 179 MPV 10.2 Immature Gran % 0.7 Neutrophils % 82.4 Lymphocytes % 5.9 Monocytes % 10.2 Eosinophils % 0.5 Basophils % 0.3 Nucleated RBC % 0 Absolute Neutrophils 5.00 Absolute Lymphocytes 0.36 L Absolute Monocytes 0.62 Absolute Eosinophils 0.03 Absolute Basophils 0.02 PT INR Sodium 138 Potassium 4.0 D Chloride 99 Carbon Dioxide 30.9 Anion Gap 8.1 BUN 34 H Creatinine 1.5 H Estimated GFR/1.73 m2 45.03 Glucose 95 Calcium 9.1 Total Bilirubin 1.7 H AST 171 H ALT 348 H Alkaline Phosphatase 211 H Total Protein 6.1 L Albumin 2.6 L Procalcitonin 0.2 Mitochondria M2 Ab Anti-Smooth Muscle Ab Add-On Test Request 12/31/21 06:17 WBC RBC Hgb Hct MCV MCH MCHC RDW Plt Count MPV Immature Gran % Neutrophils % Lymphocytes % Monocytes % Eosinophils % Basophils % Nucleated RBC % Absolute Neutrophils Absolute Lymphocytes Absolute Monocytes Absolute Eosinophils Absolute Basophils PT 11.6 H INR 1.2 H Sodium Potassium Chloride Carbon Dioxide Anion Gap BUN Creatinine Estimated GFR/1.73 m2 Glucose Calcium Total Bilirubin AST ALT Alkaline Phosphatase Total Protein Albumin Procalcitonin Mitochondria M2 Ab Anti-Smooth Muscle Ab Add-On Test Request PAWSS Have you Been Recently Intoxicated or Drunk Within the Last 30 days?: Yes Have you Ever Experienced Previous Episodes of Alcohol Withdrawal?: No Have you ever Experienced Withdrawal Seizures?: No Have you ever Experienced Delirium Tremens(DT)s?: No Have you ever undergone Alcohol Rehabilitation Treatment (i.e, inpt ot outpatient treatment programs)?: No Have you ever Experienced Blackouts?: No Have you ever Combined Alcohol with other Downers within the last 90 days?: No Have you ever Combined Alcohol with any other Substance of Abuse during the last 90 days?: No Positive Blood Alcohol level on Presentation? [PCS.BAL]: No Evidence of Increased Autonomic Activity (i.e. HR>120, tremor, sweating, agitation, nausea)?: No Result: 1 Point of Care Ultrasound Note: Limited thoracic POCUS was performed. Patient has diffuse bilateral B-lines consistent with CHF.
[2021-12-31] MEDS: MAGNESIUM SULFATE 2 GM/50 ML BAG IVPB (14:45)
[2021-12-31] MEDS: Normal Saline 500 ML 30 ML IV (14:45)
[2021-12-31 15:44] VITALS: BP 106/72; PULSE 113; RESP 17; TEMP 36.6; O2SAT 95
[2021-12-31 15:56] VITALS: PULSE 111
[2021-12-31] MEDS: Furosemide 100 MG/10 ML VIAL 80 MG IVP (16:01)
[2021-12-31] MEDS: Docusate Sodium 100 MG/10 ML CUP PO ×2 (16:01→20:22)
[2021-12-31] MEDS: Bisacodyl 10 MG SUPP PR (16:02)
[2021-12-31] MEDS: Normal Saline Flush 10 ML SYR IVP (16:02)
[2021-12-31] MEDS: Magnesium Oxide 400 MG TAB PO (20:22)
[2021-12-31] MEDS: ALPRAZolam 0.5 MG TAB PO (21:19)
[2021-12-31 23:46] VITALS: PULSE 109
[2021-12-31 23:57] VITALS: BP 100/68; PULSE 110; RESP 18; TEMP 36.5; O2SAT 93
[2022-01-01] VITALS (8 sets, daily range): BP systolic 92–119; BP diastolic 63–76; PULSE 108–112; RESP 16–21; TEMP 35.6–36.7; O2SAT 94–99
--- NOTE | 2022-01-01 06:34 | NUR.NOTE ---
Nursing Note: Pt noted to be increasingly confused overnight. Pt taking off all of his cloth and telemetry while getting up out of be to Go to the game. Pt has been easily re-directable, however pt has been only oriented to self for most of the shift. Discussed changes with charge nurse to be passed along for barriers to discharge home alone.
[2022-01-01 06:39] LABS: Anion Gap 3.2 mmol/L (3-11); BUN 35 mg/dL (7-18); CO2 35.8 mmol/L (21.0-32.0); CREATININE 1.5 mg/dL (0.70-1.30); Calcium 9.5 mg/dL (8.5-10.1); Chloride 99 mmol/L (98-107); Estimated GFR 45.03 (mL/min/1.73m2); Glucose 89 mg/dL (74-106); INR 1.1 (0.9-1.1); Potassium 3.9 mmol/L (3.5-5.1); Prothrombin Time 11.4 sec (9.3-11.0); Sodium 138 mmol/L (136-145)
[2022-01-01 06:47] LABS: ALT 292 U/L (16-63); AST 115 U/L (15-37); Albumin 2.8 g/dL (3.4-5.0); Alkaline Phosphatase 231 U/L (46-116); Bilirubin, Direct 0.9 mg/dL (0.0-0.2); Bilirubin, Total 1.7 mg/dL (0.2-1.0); Total Protein 6.4 g/dL (6.4-8.2)
[2022-01-01] MEDS: Furosemide 100 MG/10 ML VIAL 80 MG IVP ×2 (07:45→16:27)
[2022-01-01] MEDS: Polyethylene Glycol 3350 17 GM PACKET PO (07:49)
[2022-01-01] MEDS: Spironolactone 25 MG TAB PO (07:49)
[2022-01-01] MEDS: Doxycycline Hyclate 100 MG CAP PO ×2 (07:49→16:28)
[2022-01-01] MEDS: cefTRIAXone 1 GM/50 ML BAG IVPB (07:49)
[2022-01-01] MEDS: Docusate Sodium 100 MG/10 ML CUP PO ×2 (07:49→21:17)
[2022-01-01] MEDS: Senna TAB 2 TAB PO (07:49)
[2022-01-01] MEDS: Omeprazole 20 MG CAPCR PO (07:50)
[2022-01-01] MEDS: Folic Acid 1 MG TAB PO (07:50)
[2022-01-01] MEDS: Metoprolol CR 50 MG TABCR 150 MG PO (07:50)
[2022-01-01] MEDS: Aspirin E.C. 81 MG TABEC PO (07:50)
[2022-01-01] MEDS: Metoprolol CR 50 MG TABCR PO (10:07)
--- NOTE | 2022-01-01 11:39 | PT.INNT ---
PT Notes Visit Reasons: Pulmonary Edema, Coagulopathy Pt ref PT x 2 attempts today.
[2022-01-01] MEDS: Magnesium Oxide 400 MG TAB PO ×2 (12:30→21:19)
--- NOTE | 2022-01-01 13:05 | W.PM.PROGNOT ---
Date of Service Date of service: 01/01/22 Time of Service: 13:05 Assessment and Plan Assessment and plan (1) CHF (congestive heart failure): Status: Chronic Assessment and plan: Patient seems to show some improvement diuresis since he was put back on IV Lasix. Urine output yesterday was 1100 mL today so far has been 1050. His weight is down to 88.1 kg which is a drop from his admission weight of 103.7 kg. However I am skeptical about this admission weight as he was reweighed later in the day and found to be 96.1 kg. Nevertheless he is dropped at least 8 kg over the course of his hospital stay. Renal function appears to be stable with a BUN of 35 creatinine 1.5. His echo imaging last week showed low normal left ventricular systolic function both evidence of right ventricular pressure volume overload with diastolic septal flattening and paradoxical septal wall motion and a hypocontractile right ventricle along with moderate pulmonary hypertension and moderate tricuspid regurgitation. It is unclear as to the etiology of his right ventricular failure. Patient had been chronically anticoagulated for atrial flutter however because of his liver insufficiency and coagulopathy his Xarelto was withheld. No CT of the chest was performed and although his renal function is borderline I think it is worth getting a CTA to document that he does not have chronic pulmonary thromboemboli as a cause for his RV failure. If we are unable to obtain a CTA that I think a VQ scan should be performed. And as I have noted above he should be referred to cardiology upon discharge from the hospital. We will make arrangements for him to see Dr. Gordon Polanco at [facility] in [facility]. Patient is currently on spironolactone and receiving IV Lasix although I will switch his Lasix over to torsemide. I have added Jardiance for congestive failure although I am unsure of the evidence to support its use in the right heart failure but there is good evidence that it is helpful in HFrEF as well as HFpEF. He may need to be evaluated for possible prostaglandin vasodilator agent. Qualifiers: Heart failure type: right-sided Heart failure chronicity: acute on chronic Qualified Code(s): I50.813 - Acute on chronic right heart failure (2) Non-small cell cancer of right lung: Status: Acute Assessment and plan: Currently under the care of oncology. Last dose of Durvalumab was in October. CT abd pelvis; incidental finding of bilateral pleural plaques versus pleural mets. CXR did show possible infiltrate. No Fever. WBC count did increase from 6.7 to 9.4 and Procalcitonin is 0.9. O2 saturations in the low 90's on RA. Continue Rocephin 1 gram Q24H. add doxycycline 100 mg bid. Will finish out antibiotics while he is here and repeat his procalcitonin and CBC level in the morning. However tomorrow would be day 7 of antibiotics which should be more than sufficient. (3) HLD (hyperlipidemia): Status: Acute Assessment and plan: Continue atorvastatin. (4) HTN (hypertension) with goal to be determined: Status: Acute Assessment and plan: Cont metoprolol at increased dose of 200 mg Toprol XLdaily Monitor. (5) Coagulopathy: Status: Acute Assessment and plan: Bili trend: 3.3. > 2.8 > 2.9 > 2.2>1.9>1.7 AST trend 114 > 1502 >1451 > 594>289>171. ALT trend 80 > 705 > 917 > 611>423>348 INR: 6.3 > 7.2 > 2.9 > 1.8>1.3>1.2 Ammonia normal. UDA neg. Pt and son endorse that he hasn't drank alcohol for 4 months but did drink daily prior to that. No new medications or OTC supplements No wild muschrooms ingested. His last agent administered by his oncologist was Durvalumab in October. GI [place] [facility] [place] Dr. Dobbins . . S/P 72 hours of NAC (will finished 12/30/21). IV Vitamin K 10mg daily for 3 days. ceruloplasm level, anti smooth muscle Ab, anti mitochondral Ab all negative. BRIGID neg. Viral hepatitis panel normal. No liver bx recommended at this time until pending test results are in. Received an oral dose of Vit K 2.5mg initially, then 10mg IV Vit K daily x 3 doses.completed on 12/30/21. Finish 72 H NAC infusion protocol for antioxidant effect. completed on 12/30/21. Daily CMP and INR. Abd US unremarkable. CT abdomen on 12/29: Cardiomegaly and moderate size right pleural effusion.? Bilateral pleural plaques versus pleural metastases. Passive venous congestion of the liver which also shows a few cysts.? No biliary dilatation. Markedly distended urinary bladder. continue to hold his Xarelto; refer to [facility] upon discharge. I have recommended to the patient's son that his father should also follow up w/ cardiology and discuss having a Watchman procedure to close the atrial appendage in order to reduce his risk of atrial thrombus and potential stroke. This would avoid the need for anticoagulants. I have reviewed the patient course and treatment w/ his son explaining that his father's acute liver injury is probably d/t congestive hepatopathy from his heart failure. He has non evvidence for autoimmune nor infectious hepatitis and no neoplasm or infiltrative disease seen on imaging. 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 (6) Community acquired pneumonia: Status: Acute Assessment and plan: Continue Rocephin and doxycycline for 1 more days for total of 7 days. Check follow-up chest x-ray. Procalcitonin level is declining from 0.9 down to 0.2. Encourage patient to use I-S and Acapella. (7) Atrial flutter: Status: Acute Assessment and plan: Patient is on 2 beta-blockers he is on Inderal LA for his essential tremors and he takes Toprol-XL for his atrial flutter. I was going to discontinue his Inderal LA until he found out about the essential tremors. I will be adjusting his Toprol-XL upward to 200 mg daily. I have ordered telemetry monitoring to monitor his rate and rhythm response. (8) Discharge planning issues: Status: Acute Assessment and plan: patient lives in his own home and plans to return to the same. He reports getting help from his daughter in law. We will set him up w/ home health services including nursing, P.T. upon discharge. Likely discharge home in the next 24 to 48hr. I would like him to complete 5 days of antibiotics for CAP and complete his NAC treatment of his acute nonviral hepatitis and liver failure. I will extend his ATB x 2 more days. NAC has been completed. will monitor LFT and INR daily. Subjective Subjective Interval history since last seen: I had a lengthy discussion with the patient as well as his son, Mina as well as his granddaughter Beverley. I reviewed for Mina and Beverley Daily's current condition and work-up including his hepatic insufficiency and heart failure and community-acquired pneumonia and coagulopathy. I again recommended to the family that Mr. Daily follow-up with cardiology and also may need follow-up with hepatology. However I also indicated to the family as well as to the patient that if he does not want aggressive work-up and treatment that that also is an option and that we would be willing to involve palliative care. Patient indicated to me that he would like to see cardiology. Specifically I related to Mr. Daily that he is at high risk for bleeding if he continues on a D.O.A.C. anticoagulant but because of his atrial flutter/atrial fibrillation this also increases risk for CVA. I think a solution to his problem would be for him to see an brand advisor and have a Watchman procedure. I also reviewed physical therapy's notes from yesterday and today and the patient has been declining to participate in physical therapy. I think at this point the patient would not be eligible for detention facility and that the best we can do is discharge him home tomorrow with home health services and refer home physical therapy. He should receive visiting nurse services as well as HUB CUTTER and PT and OT as well as a detentionassociate director of nursing. Tomorrow we will make a referral to Dr. Gordon Polanco nuclear medicine officer up at [facility] who can follow the patient locally as the patient lives in [place]. Patient denies any chest pain or chest pressure and his dyspnea has actually improved. Exam Narrative Exam Narrative: Elderly white male sitting up in his chair talking with his son and granddaughter. He is alert and oriented in no acute distress. Lungs with bibasilar rales but otherwise no rhonchi or wheezingi Heart is regular but tachycardic do not appreciate a murmur rub Abdomen is distended with positive bowel sounds positive ascitic fluid wave. Feet and legs with 2+ pitting edema from his knees down to his feet. Superficial skin ulcer over the left tibia is covered with a Mepilex. Objective Last Vital Signs Temp 36.1 C L 01/01/22 07:40 Pulse 112 H 01/01/22 07:40 Resp 21 01/01/22 07:40 BP 119/76 01/01/22 07:40 Pulse Ox 98 01/01/22 07:40 Laboratory Results - last 24 hr 01/01/22 01/01/22 01/01/22 06:04 06:04 06:04 PT 11.4 H INR 1.1 Sodium 138 Potassium 3.9 Chloride 99 Carbon Dioxide 35.8 H Anion Gap 3.2 BUN 35 H Creatinine 1.5 H Estimated GFR/1.73 m2 45.03 Glucose 89 Calcium 9.5 Magnesium 2.0 Total Bilirubin 1.7 H Conjugated Bilirubin 0.9 H AST 115 H ALT 292 H Alkaline Phosphatase 231 H Total Protein 6.4 Albumin 2.8 L PAWSS Have you Been Recently Intoxicated or Drunk Within the Last 30 days?: Yes Have you Ever Experienced Previous Episodes of Alcohol Withdrawal?: No Have you ever Experienced Withdrawal Seizures?: No Have you ever Experienced Delirium Tremens(DT)s?: No Have you ever undergone Alcohol Rehabilitation Treatment (i.e, inpt ot outpatient treatment programs)?: No Have you ever Experienced Blackouts?: No Have you ever Combined Alcohol with other Downers within the last 90 days?: No Have you ever Combined Alcohol with any other Substance of Abuse during the last 90 days?: No Positive Blood Alcohol level on Presentation? [PCS.BAL]: No Evidence of Increased Autonomic Activity (i.e. HR>120, tremor, sweating, agitation, nausea)?: No Result: 1
[2022-01-01 17:16] LABS: Legionella Ag Detection Urine Negative (Negative)
[2022-01-01] MEDS: ALPRAZolam 0.5 MG TAB PO (21:17)
[2022-01-02] VITALS: PULSE 113
[2022-01-02 02:54] VITALS: BP 89/57; PULSE 71; RESP 19; TEMP 36.9; O2SAT 97
[2022-01-02 03:01] VITALS: PULSE 111
[2022-01-02 06:46] LABS: Abs Immature Grans 0.02 10^3/uL (0.0-0.06); Absolute Basophil Count 0.03 10^3/uL (0.0-0.2); Absolute Eosinophil Count 0.03 10^3/uL (0.0-0.7); Absolute Neutrophil Count 6.36 10^3/uL (1.2-6.7); Basophils % 0.4; Eosinophils % 0.4; HCT 44.6 % (40.0-50.0); HGB 13.8 g/dL (13.5-17.5); Immature Grans % 0.3; Lymphocytes % 6.7; MCH 31.7 pg (27.0-33.0); MCHC 30.9 % (32.0-36.0); MCV 102.3 fL (80-95); Monocytes % 6.7; Neutrophils % 85.5; Nucleated RBC 0 %; Platelet Count 220 10^3/uL (130-400); RBC 4.36 10^6/uL (4.36-5.78); RDW 16.5 % (11.8-14.1); RDW-SD 62.7 fL; WBC 7.44 10^3/uL (4.4-10.8)
[2022-01-02 07:15] VITALS: BP 115/84; PULSE 110; RESP 17; TEMP 36.1; O2SAT 97
[2022-01-02 07:16] LABS: ALT 248 U/L (16-63); AST 88 U/L (15-37); Alkaline Phosphatase 259 U/L (46-116); Anion Gap 4.9 mmol/L (3-11); BUN 37 mg/dL (7-18); Bilirubin, Direct 0.8 mg/dL (0.0-0.2); Bilirubin, Total 1.7 mg/dL (0.2-1.0); CO2 34.1 mmol/L (21.0-32.0); CREATININE 1.7 mg/dL (0.70-1.30); Calcium 9.3 mg/dL (8.5-10.1); Chloride 98 mmol/L (98-107); Estimated GFR 38.97 (mL/min/1.73m2); Glucose 156 mg/dL (74-106); Magnesium 1.8 mg/dL (1.8-2.4); NT-proBNP 4571 pg/mL (<300); Potassium 4.1 mmol/L (3.5-5.1); Sodium 137 mmol/L (136-145); Total Protein 7.1 g/dL (6.4-8.2)
[2022-01-02 07:27] LABS: INR 1.1 (0.9-1.1); Prothrombin Time 11.2 sec (9.3-11.0)
--- NOTE | 2022-01-02 08:00 | DI.CT_ITS ---
Exam(s) CT CHEST PE CTA EXAM: CT CHEST PE CTA CLINICAL HISTORY: RV failure. TECHNIQUE: Imaging Protocol: CT angiography of the chest was performed using pulmonary embolus melissa col. Multi planar reconstructions were performed. CONTRAST MATERIAL: Intravenous: Omnipaque 350 Contrast volume: 100 cc COMPARISON: CR XR CHEST 2V PA LATERAL from 07/25/2021 CR XR PORTABLE CHEST AP from 12/26/[address] ABDOMEN PELVIS W from 12/29/2021 FINDINGS: CHEST: PULMONARY ARTERIES: In right lower lobe pulmonary artery branch there is a peripheral filling defect which has the appearance of nonacute thrombus given its appearance. Is also subtle filling defect cr dent within the right main pulmonary artery which is difficult to determine artifact versus real embo latia, particularly given the abundant contrast in the adjacent SVC. No intraluminal filling defects se en in the left main pulmonary artery nor in more peripheral left lung arteries. LUNGS: There are multiple bilateral pleural plaques which exhibit mild calcifications therein and are not associated with overlying rib destruction.. There is a unilateral right pleural effusions-moder ate size. There is prominent area of infiltrate in the right upper lobe extending from hilar region to pleural surface. On the left side there predominantly pleural plaques but no confluent infiltrate s. No pleural effusion on the left side. No findings in the trachea and mainstem bronchi. MEDIASTINUM: There is slightly prominent lymph nodes in the right hilum. Left hilum unremarkable. N o significant mediastinal adenopathy evident. CARDIAC: Cardiomegaly. Right ventricle is enlarged.Caliber of the thoracic aorta is upper normal limi ts. LV/RV ratio= greater than 1 PARTIALLY VISUALIZED UPPERMOST ABDOMEN: No obvious findings OSSEOUS: No significant osseous lesions.Healed left-sided rib fractures noted. No acute fractures. No evidence of rib destruction at levels of multiple pleural plaques bilaterally.. IMPRESSION: 1. 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 2. There is evidence of right heart failure with cardiomegaly and enlargement of the right ventricle. 3. Multiple lung and pleural findings as described above, possibly related to prior asbestos related exposure. Small-moderate size right pleural effusion. Persist infiltrate on the right side extending from the hilum out to the pleural surface. Cannot exclude neoplasm. RADIATION DOSE DELIVERED: 439.39mGy.cm Total DLP DATA REPOSITORY: All CT scans at this facility are submitted to the National Radiology Data Registry (NRDR) Dose Index Registry (DIR) with the [employer] ([employer]). RADIATION OPTIMIZATION: All CT scans at this facility use at least one of these dose optimization te chniques: automated exposure control; mA and/or kV adjustment per patient size (includes targeted exa ms where dose is matched to clinical indication); or iterative reconstruction.
[2022-01-02] MEDS: Omnipaque 350 MG/ML 100 ML BTL IJ (08:07)
[2022-01-02 08:20] LABS: Procalcitonin 0.1 ng/mL
--- NOTE | 2022-01-02 08:54 | DI.VRAD_ITS ---
Addendum created by Jerry German MD on 01/02/2022 8:59:34 AM EDT: THIS REPORT CONTAINS FINDINGS THAT MAY BE CRITICAL TO PATIENT CARE. The findings were verbally communicated via telephone conference with Eligio Sesay at 8:59 AM EDT on 01/02/2022. The findings were acknowledged and understood. Initial report created on 01/02/2022 8:54:28 AM EDT: PROCEDURE INFORMATION: Exam: CTA Chest With Contrast Exam date and time: 01/02/2022 7:56 AM Age: 81 years old Clinical indication: Shortness of breath; Patient HX: SOB TECHNIQUE: Imaging protocol: Computed tomographic angiography of the chest with contrast. 3D rendering (Not supervised by radiologist): MIP and/or 3D reconstructed images were created by the technologist. Radiation optimization: All CT scans at this facility use at least one of these dose optimization techniques: automated exposure control; mA and/or kV adjustment per patient size (includes targeted exams where dose is matched to clinical indication); or iterative reconstruction. Contrast material: [id number]; Contrast volume: 100 ml; Contrast route: INTRAVENOUS (IV); COMPARISON: CR XR PORTABLE CHEST AP 12/26/2021 4:04 PM FINDINGS: Pulmonary arteries: I see no definite acute pulmonary embolism. In the right lower lobe pulmonary arterial branch, best seen on the coronal images, is potential peripheral filling defect along the right posterolateral margin of the artery. I cannot exclude more chronic thrombus here. I think this is less likely to be acute given its peripheral location and smooth, relatively flattened appearance. Aorta: Atherosclerotic changes of the nonaneurysmal aorta extending into the neck vessels and abdominal aorta. Lungs: Trace left and small right pleural effusions. Diffuse axial thickening in the lungs with partially calcified multifocal pleural thickening in both lungs. This suggest prior asbestos exposure. Pleural spaces: Diffuse axial prominence could be due to interstitial disease. I cannot exclude some atelectasis or infiltrate in the right base. There is patchy masslike density in the right upper lobe extending to the hilum. The largest discrete masslike area within measures 29 mm. Malignancy is not excluded. Heart: Moderate to severe coronary artery calcifications. The heart is enlarged including the right ventricle. Reflux of contrast into the IVC and hepatic veins can be seen with a component of right heart dysfunction. Heart RV/LV ratio: The RV/LV ratio is 1.3 Lymph nodes: Small middle mediastinal nodes with mildly prominent soft tissue at the right hilum. Bones/joints: Degenerative changes in the regional skeleton without acute bony abnormality. No lytic or blastic disease.. Soft tissues: Unremarkable. Other findings: Motion artifact. IMPRESSION: 1. No definite acute pulmonary embolism. Smoothly marginated peripheral nonocclusive potential filling defect in the right lower lobe pulmonary arteries which could represent a small amount of chronic thrombus. 2. Findings suggestive of right heart failure with cardiomegaly and enlargement of the right ventricle. 3. Multiple findings in the lungs as described above. Malignancy is not excluded. Follow-up recommended. Dictated and Authenticated by: Jerry German MD. Ordering:[facility] Lázaro Del Valle MD
[2022-01-02] MEDS: Metoprolol CR 100 MG TABCR 200 MG PO (08:55)
[2022-01-02] MEDS: Folic Acid 1 MG TAB PO (08:56)
[2022-01-02] MEDS: Torsemide 20 MG TAB 40 MG PO (08:56)
[2022-01-02] MEDS: Senna TAB 2 TAB PO (08:56)
[2022-01-02] MEDS: Spironolactone 25 MG TAB PO (08:57)
[2022-01-02] MEDS: Polyethylene Glycol 3350 17 GM PACKET PO (08:57)
[2022-01-02] MEDS: Normal Saline 500 ML 30 ML IV (08:57)
[2022-01-02] MEDS: cefTRIAXone 1 GM/50 ML BAG IVPB (08:57)
[2022-01-02] MEDS: Omeprazole 20 MG CAPCR PO (08:57)
[2022-01-02] MEDS: Empaglifozin 10 MG TAB PO (08:57)
[2022-01-02] MEDS: Doxycycline Hyclate 100 MG CAP PO (08:57)
[2022-01-02] MEDS: Aspirin E.C. 81 MG TABEC PO (08:57)
[2022-01-02] MEDS: Normal Saline Flush 10 ML SYR IVP (08:58)
[2022-01-02] MEDS: Docusate Sodium 100 MG/10 ML CUP PO (08:58)
--- NOTE | 2022-01-02 09:06 | PT.INTREAT ---
Date of service: 01/02/22 Time of Service: 08:46 PT Notes Visit Reasons: Pulmonary Edema, Coagulopathy Inpatient Physical Therapy Treatment Note [facility] Date: 01/02/2022 PRECAUTIONS: Activity as tolerated SUBJECTIVE: Robby is hopeful that he will be discharged to home today. He is pleasant but states that he will be able to negotiate the stairs at home and doesn't feel he needs to practice here first. After brief discussion, he is agreeable to participating in PT for brief stair training. OBJECTIVE: PAIN: No c/o pain BED MOBILITY/TRANSFERS Sit-stand: S Stand-sit: S GAIT Assistive Device: No AD Weight bearing: Full Assist: SBA Distance: 250' Deviation: LOB x1 with self-recovery STAIRS: Up/down 6x4 and 4x6 using (alternating) B/U rail and a step-to pattern with supervision ASSESSMENT: Patient tolerated session with complaint of dizziness and lightheadedness with gait training, which was reported to primary nurse. He tolerated a progression in gait distance without assistive device support. He demonstrates one instance of LOB with self-recovery. PLAN: Continue with gait training without device, as well as global strengthening, as tolerated for improved mobility. TREATMENT CODE/TIME: 13 minutes; 90122 (08:46)
[2022-01-02] MEDS: Magnesium Oxide 400 MG TAB PO (12:21)
--- NOTE | 2022-01-02 13:33 | DSE_ITS ---
Date of service: 01/02/22 Time of Service: 13:33 DS: Diagnosis Discharge Diagnosis (1) CHF (congestive heart failure): Status: Chronic Asessment and Plan: Normal systolic left ventricular function but with severe right ventricular dysfunction per echocardiogram. (2) Non-small cell cancer of right lung: Status: Acute (3) HLD (hyperlipidemia): Status: Acute (4) HTN (hypertension) with goal to be determined: Status: Acute (5) Coagulopathy: Status: Resolved (6) Community acquired pneumonia: Status: Resolved (7) Atrial flutter: Status: Acute (8) Discharge planning issues: Status: Resolved Discharge Plan Disposition Patient Disposition: HOME W/HOME HEALTH SERVICE Condition: Improving Discharge Details Reason For Visit: Pulmonary Edema, Coagulopathy Admit Date/Time: 12/26/21 16:49 Admit Provider: Jerry Dobbins Attending Provider: Jerry Dobbins Primary Care Provider: Kevin Morales Hospital Course Hospital Course: 81-year-old male with history of non-small cell lung cancer, essential hypertension, atrial fib/atrial flutter on Xarelto presented emergency department after near syncopal spell associate with shortness of breath at his oncologist office. He was noted to be bradycardic and hypoxic. He was hypoglycemic with a glucose of 35 per EMS. He was given dextrose 10% his hypoglycemia resolved. On arrival at [facility] blood pressure is 120/70, pulse in the 90s respiration nonlabored oxygen saturation 94% he was noted to have diffuse bilateral rales along with ascites and bilateral leg edema. Chest x-ray showed right chest mass and right pleural effusion and bilateral pulmonary edema. On admission his white count was 6000 he was not anemic hemoglobin 15.8 g however his INR was elevated 6.3 and his creatinine is elevated 2.1 and furthermore his LFTs were abnormal with an AST of 114, ALT 80, alkaline phosphatase 195 and a proBNP of 21,000. Subsequent monitor his liver function showed his transaminases ryan into the thousands with an AST of 1502 and ALT of 917 and alkaline phosphatase of 213. The hospital service contacted [facility] gastroenterology and he was placed on a N- acetylcysteine drip for 3 days with subsequent improvement in his transaminases. At the time of discharge his AST had gone down to 88 his ALT was down to 248 as alk phosphatase was 259 and his bilirubin had declined from a peak of 3.38 down to a level 1.7. His coagulopathy was treated with vitamin K both orally and parenterally his INR came down from a peak of 7.2 to a normal level 1.1 at the time of discharge. He was treated for community-acquired pneumonia with ceftriaxone and doxycycline which she received 7 days of antibiotics. He was placed on IV Lasix and diuresed. His atrial flutter atrial fibrillation rate required treatment with adjustment of his metoprolol this is titrated from 50 mg a day upwards to 200 mg a day. Because of his liver dysfunction and concern of potential bleeding he was advised to discontinue his Xarelto. On the day of discharge she had a CT scan of his chest with contrast he was found to have an old nonocclusive filling defect in the right lower lobe pulmonary artery felt to be a chronic thrombus at this level. There were no acute pulmonary emboli and he had evidence of right heart failure with cardiomegaly and right ventricular enlargement as well as pleural plaques and an infiltrate in his right upper lobe that extends to the hilar region to the pleural surface presumably from his non- small cell lung cancer. He had a moderate sized unilateral right pleural effusion. During his hospital stay an echocardiogram was performed any had normal left ventricular chamber size and wall thickness with ejection fraction 50% however he demonstrated diastolic septal flattening with paradoxical septal motion consistent with right ventricular volume and pressure overload and a hypocontractile right ventricle. He has moderate right atrial dilatation but normal left atrial size. Aortic and mitral valves had no significant valvulopathy but his tricuspid valve had moderate tricuspid regurgitation with an RVSP of 48 mm. Ascending aorta is mildly dilated 3.72 cm. Patient did well with IV diuretics and was transitioned to oral diuretics. Patient had no further hypoglycemic spells throughout his hospital stay. He was discharged home on spironolactone 25 mg daily and torsemide 40 mg daily as metoprolol dose was increased to 200 mg daily. He is to follow-up with his primary care provider Dr. Kevin Morales in the next week. We attempted to get him an appointment with Dr. Gordon Polanco from cardiology services however no outpatient visits were available until June therefore he was set up to see Dr. Kadi Martinez at [facility]. I discussed with the patient and his family his need to follow-up with cardiology for management of his heart failure and atrial flutter as well as to discuss alternative treatments to oral anticoagulants including the possibility of having a watchman procedure to prevent atrial thrombi from forming and causing a stroke. Home Meds and New Rx's Prescriptions: New metoprolol succinate 100 mg Tablet Extended Release 24 Hr 200 mg PO DAILY Qty: 30 0RF torsemide 20 mg Tablet 40 mg PO DAILY Qty: 30 0RF spironolactone 25 mg Tablet 25 mg PO DAILY Qty: 30 0RF Continued propranolol 80 mg capsule,extended release 24 hr 80 mg PO BID 0RF atorvastatin 40 mg Tablet 40 mg PO DAILY 0RF omeprazole 20 mg Capsule,Delayed Release(Dr/Ec) 20 mg PO DAILY 0RF coenzyme Q10 10 mg Capsule 10 mg PO DAILY 0RF cyanocobalamin (vitamin B-12) 250 mcg Tablet 500 mcg PO DAILY 0RF amlodipine 5 mg Tablet 5 mg PO DAILY 0RF sennosides 25 mg Tablet 25 mg PO DAILY 0RF alprazolam 0.5 mg Tablet 0.5 mg PO QHS 0RF melatonin 10 mg Capsule 10 mg PO HS PRN0RF folic acid 400 mcg Tablet 0.4 mg PO DAILY 0RF multivit,tx w/iron (hematinic) Tablet 1 tab PO DAILY 0RF cholecalciferol (vitamin D3) [Vitamin D3] 25 mcg (1,000 unit) Tablet 25 mcg PO DAILY 0RF Discontinued aspirin [Adult Aspirin Regimen] 81 mg tablet,delayed release (DR/EC) 81 mg PO DAILY 0RF Xarelto 20 mg Tablet 20 mg PO DAILY 0RF Hold Instructions: hold Xarelto until you are evaluated by cardiology and your primary care provider vitamin E 400 unit Capsule 400 unit PO DAILY 0RF No Action metoprolol succinate 50 mg Tablet Extended Release 24 Hr 50 mg PO DAILY 0RF Discharge Instructions Instructions: Spironolactone (By mouth), Torsemide (By mouth), Heart Failure (DC), Ascites (DC), Low-Sodium Diet (DC), Bleeding Disorders (DC), Watchman Implant (DC) Additional Instructions: You were treated for liver insufficiency and right heart failure and community aquired pneumonia. You have had 7 days of antibiotics and do not need further antibiotics. Your heart failure was treated w/ intravenous diuretics and now you are being put on Torsemide and spironolactone which are oral diuretics to help control the fluid build up in your legs and abdomen caused by your heart failure. Your Toprol XL was adjusted to control your atrial flutter heart rate. Because of your atrial dysrhythmias you have been on an oral anticoagulant at home called Xarelto. When you presented to the hospital you had severe liver injury w/ high liver enzymes and evidence of a coagulopathy ([facility] your liver does not make the proper clotting proteins causing a high prothrombin blood test). Your Xarelto was put on hold d/t the coagulopathy and worsening liver function. Your liver inflammation was treated w/ 3 days of N- acetylcysteine (NAC, commonly called Mucomyst). This was done on the advice of [facility] gastroenterology. Your liver inflammation improved greatly although your liver enzymes are still slightly increased. We did imaging of your liver and did not see any tumors but saw some cysts in the liver. (this was evaluated by CT scan). We ran hepatitis studies which were negative for infectious and for autoimmune hepatitis. You had a CT scan of your chest that demonstrates your lung cancer and you have pleural plaques that may represent either pleural metastasis or asbestos exposure. You have an old pulmonary embolus (clot). We recommend that you get close follow up w/ cardiology to treat your heart failure and to discuss whether or not you are a candidate for left atrial appendage closure (Watchman). People w/ atrial flutter or atrial fibrillation are higher risk for clots in the heart which can lead to strokes, however, we believe at present w/ your liver failure that you are higher risk of bleeding complications from continued use of Xarelto or other blood thinners. However performance of left atrial appendage closure will reduce the risk for clots forming in the heart. Please take your diuretics and Toprol as prescribed. Get follow up labs next week to assess your kidney and liver function and electrolytes. Get a follow up w/ Dr. Kevin Morales who can coordinate care w/ cardiology and hepatology. Stand Alone Forms: Nursing Discharge Form Referrals: Kadi Martinez MD [ [facility]] - (The office will call you at home with an appointment. ) Kevin Morales [Primary Care Provider] - 01/10/22 3:20 pm Activity:: Activity as Tolerated Equipment/Supplies:: No Equipment Needed Diet:: Low Sodium Discharge Orders Discharge Orders: Discharge Order (Routine); Ordered 01/02/22 Ordered By: Eligio Sesay Other Ambulatory Orders: Comprehensive Metabolic Panel (Routine) Timeframe: 1 Week Location: None Selected Ordered By: Eligio Sesay NT-proBNP (Routine) Timeframe: 1 Week Location: None Selected Ordered By: Eligio Sesay Discharge Data Discharge Date/Time-TO BE ENTERED AT DEPARTURE: 01/02/22 15:35 DS: Summary Time Spent with Patient providing and/or coordinating discharge services: Greater than 30 minutes Status at Discharge Functional status at discharge: uses cane/walker Overall status at discharge: patient is progressing back to baseline Mental Status: mental status grossly normal Speech and Movement: speech and movement normal Mood: congruent mood Affect: normal affect Exam Narrative Exam Narrative: Robby is sitting up in his chair, dressed ready to go home. He is alert and oriented. Denies any dyspnea or CP Lungs: clear Heart: regular but slightly tachycardia, no gallop or heave Abdomen: obese, soft, but some ascites Legs: 2+ pitting edema of his feet, ankles and lower tibia Psych Mental Status: mental status grossly normal Speech and Movement: speech and movement normal Mood: congruent mood Affect: normal affect DS: Data Vitals/I&O Vitals and I&O: Vital Signs Temperature 36.1 C L 01/02/22 07:15 Temperature Source Tympanic 01/02/22 07:15 Pulse 110 H 01/02/22 07:15 Pulse Rhythm Regular 01/02/22 07:30 Pulse 104 H 12/26/21 18:01 Respiratory Rate 17 01/02/22 07:15 Respiratory Effort Non-Labored 01/02/22 07:30 Respiratory Depth Normal 01/02/22 07:30 Respiratory Pattern Normal 01/02/22 07:30 Blood Pressure 115/84 01/02/22 07:15 Blood Pressure Mean 108 12/26/21 18:01 Blood Pressure Position Supine 12/26/21 15:15 Pulse Oximetry 97 01/02/22 07:15 Oxygen Delivery Method Room Air 01/02/22 07:15 Oxygen Flow Rate 0 01/02/22 07:15 Pain Level 0 01/02/22 02:54 Comment 01/01/22 19:22 Intake & Output 01/01/22 01/02/22 01/02/22 23:59 11:59 23:59 Intake Total 240 / 530 360 / 840 480 / 840 Output Total 300 / 1050 Balance -60 / -520 360 / 840 480 / 840 Weight 88.167 kg 87.9 kg Intake: IV 0 / 0 Oral 240 / 480 360 / 840 480 / 840 Output: Urine 300 / 1050 Other: Urine Color Light [place] Yellow Urine Appearance Clear Clear Urine Odor Normal Stool Size Large Stool Characteristics Formed Brown Voiding Methods Toilet Toilet Data Completed and Pending Labs on day of discharge: Labs from last 24 hours 01/02/22 01/02/22 01/02/22 06:33 06:33 06:33 WBC 7.44 RBC 4.36 Hgb 13.8 Hct 44.6 MCV 102.3 H MCH 31.7 MCHC 30.9 L RDW 16.5 H Plt Count 220 MPV 10.0 Immature Gran % 0.3 Neutrophils % 85.5 Lymphocytes % 6.7 Monocytes % 6.7 Eosinophils % 0.4 Basophils % 0.4 Nucleated RBC % 0 Absolute Neutrophils 6.36 Absolute Lymphocytes 0.50 L Absolute Monocytes 0.50 Absolute Eosinophils 0.03 Absolute Basophils 0.03 PT 11.2 H INR 1.1 Sodium Potassium Chloride Carbon Dioxide Anion Gap BUN Creatinine Estimated GFR/1.73 m2 Glucose Calcium Magnesium Total Bilirubin Conjugated Bilirubin AST ALT Alkaline Phosphatase NT-Pro-B Natriuret Pep Total Protein Albumin Procalcitonin 0.1 Urine Legionella Ag 01/02/22 12/30/21 06:33 17:45 WBC RBC Hgb Hct MCV MCH MCHC RDW Plt Count MPV Immature Gran % Neutrophils % Lymphocytes % Monocytes % Eosinophils % Basophils % Nucleated RBC % Absolute Neutrophils Absolute Lymphocytes Absolute Monocytes Absolute Eosinophils Absolute Basophils PT INR Sodium 137 Potassium 4.1 Chloride 98 Carbon Dioxide 34.1 H Anion Gap 4.9 BUN 37 H Creatinine 1.7 H Estimated GFR/1.73 m2 38.97 Glucose 156 H Calcium 9.3 Magnesium 1.8 Total Bilirubin 1.7 H Conjugated Bilirubin 0.8 H AST 88 H ALT 248 H Alkaline Phosphatase 259 H NT-Pro-B Natriuret Pep 4571 H Total Protein 7.1 Albumin 3.0 L Procalcitonin Urine Legionella Ag Negative PFSH All Active Problems (Updated 01/03/22 @ 00:06 by TANIA ALVES) Essential tremor (Chronic) Hepatic insufficiency (Acute) CHF (congestive heart failure) (Chronic) Non-small cell cancer of right lung (Acute) HLD (hyperlipidemia) (Acute) HTN (hypertension) with goal to be determined (Acute) Atrial flutter (Acute) Acute UTI (Acute) Social History Smoking/Tobacco Use Status: Former Tobacco Use Smoking risk assessment performed?: Yes Alcohol Intake: current Alcohol Intake frequency: a few times a month Substance use type: does not use Details: Previous HX heavy ETOH use--decreased use past 10 years Do you feel safe at home: Yes Do you feel safe in your relationship?: Yes
--- NOTE | 2022-01-02 13:38 | PDOC.HHF2F_ITS ---
Home Health Certification Home Health Certification: 1. Encounter Date and Reason I certify that Robby Daily was seen by Eligio Sesay on 01/02/22 and that I had a [id number] encounter with this patient that meets the physician face to face encounter requirements. 2. Clinical Findings Supporting Skilled Need and Homebound Status I certify that home health services are medically necessary, include either intermittent detention and/or physical/speech therapy, and that this patie nt is homebound in that absences from the home require considerable and taxing effort and are infrequent or of short duration, or are attributable to the need to receive medical care. [X] (a) Attached documentation from encounter provides clinical findings supporting skilled need and homebound status (including what assistance patient requires to leave the home). The encounter with the patient was in whole, or in part, for the following medical condition, which is the primary reason for home health care: Pulmonary Edema, Coagulopathy Nursing Home: visiting nurse to monitor CHF signs/symptoms; obtain labs, coordinate any med changes w/ his PCP and cardiology. Educate patient and family about CHF and his meds; monitor med compliance. CARDIOLOGY CLINICAL CONSULTANT to be consulted to help coordinate all services needed and to communicate w/ PCP regarding availability of services and to identify any new needs Physical Therapy: P.T. and O.T. to be consulted to perform evaluation of patient's ability to perform his ADL safely and to improve his strength and mobility to achieve independent living Speech Therapy: Homebound: patient's recent hospitalization d/t CHF and liver failure have left him too debilitated and frail that obtaining medical services outside of his home puts him at increased risk to his health 3. Certification and Authentication I certify that I composed the above information based on my clinical judgement relating to this patient's medical condition and, if applicable, clinical findings communicated to me by the NPP or inpatient physician who performed the Home Health Referral. All further orders will be obtained through __Kevin Morales M.D. (Community Based Physician - PCP)
--- NOTE | 2022-01-02 18:17 | CMDISCH_ITS ---
- If Service Date Differs Date of service: 01/02/22 Time of Service: 18:17 LACE Index Scoring Tool - Questions: Length of Stay (in days): 7 - 13 Acuity (Admit via E.D.?): Yes Comorbidities: Congestive Heart Failure E.D. Visits: 2 - Answers: Total Score: 12 Risk of Readmission: High Risk Care Management Discharge Reason for Hospitalization: CHF, Pulmonary Edema, coagulopathy Discharge Plan: Robby will return home with new orders for HH RN, PT through [facility]. CM informed [facility] of his discharge today. His son drove him home via private vehicle. He will follow up with his PCP and discharge plan of care. Patient/Family Education Needs: Review discharge instructions regarding activity levels and medications, discussion of self care needs including ask me three and goals of care. Services Needed at Discharge: Home Health Care Services ([facility])
--- NOTE | 2022-01-02 18:30 | INDS_ITS ---
Date of service: 01/02/22 PT Notes Visit Reasons: Pulmonary Edema, Coagulopathy Physical Therapy Inpatient Initial Evaluation Date: 01/02/2022 Dates of service: 12/30/2021 through 01/02/2022 This is a clinical summary of care provided for the duration of dates listed above. No charge was made in the completion of this documentation. Referring Doctor: Eligio Lemons MD PT Orders: PT CONSULT: Safety consult for D/C Precautions: Fall. Standard. Activity as tolerated. 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 PMHX: All Active Problems?(Updated 12/26/21 @ 18:30 by Jerry Dobbins MD) Hypoglycemia (Acute) Coagulopathy (Acute) CHF (congestive heart failure) (Chronic) Non-small cell cancer of right lung (Acute) HLD (hyperlipidemia) (Acute) HTN (hypertension) with goal to be determined (Acute) Atrial flutter (Acute) Acute UTI (Acute) Social History/Home Situation: Lives alone in a private home with 10 steps to enter with rails on both sides.? Patient states that he has a cleaning lady who comes in once a week for house chores and laundry.? States that he still is able to perform all his grocery shopping and transportation needs. Equipment Owned/DME: None Subjective: NT. See most recent [employer] notes. Objective: General Observation: NT. See most recent [employer] notes.. Mental Status: NT. See most recent [employer] notes. Pain: NT. See most recent [employer] notes. ROM: Right Upper Extremity: ? Shoulder Flexion WFL. Shoulder abduction WFL. Elbow flexion WFL. Wrist flexion WFL. Functional opening and closing of hand WFL. Left Upper Extremity:? Shoulder Flexion WFL. Shoulder abduction WFL. Elbow flexion WFL. Wrist flexion WFL. Functional opening and closing of hand WFL. Right Lower Extremity: Hip flexion WFL. Hip abduction WFL. Knee flexion WFL. Ankle dorsiflexion WFL. Ankle plantarflexion WFL. Left Lower Extremity: Hip flexion WFL. Hip abduction WFL. Knee flexion WFL. Ankle dorsiflexion WFL. Ankle plantarflexion WFL. Strength: Right Upper Extremity: Shoulder flexors 4/5. Shoulder abductors 4/5. Elbow flexors 4/5. Elbow extensors 4/5. Senior Resident Care Director strong. Left Upper Extremity: Shoulder flexors 4/5. Shoulder abductors 4/5. Elbow flexors 4/5. Elbow extensors 4/5. Senior Resident Care Director strong. Right Lower Extremity: Hip flexors 4/5. Hip abductors 4/5. Knee flexors 4/5. Knee extensors 4/5. Ankle dorsiflexors 4/5. Ankle plantarflexors 4/5. Left Lower Extremity: Hip flexors 4/5. Hip abductors 4/5. Knee flexors 4/5. Knee extensors 4/5. Ankle dorsiflexors 4/5. Ankle plantarflexors 4/5. Bed Mobility/Transfers: Rolling supervision Supine to sit supervision Sit to supine supervision Sit to stand supervision Stand to sit supervision Bed to reclining chair supervision Gait: Instructed patient with level surface ambulation of 250 feet requiring standby assist using no assistive device with loss of balance x1 but was able to self recover. Balance: Static Sitting: Normal Dynamic Sitting: Normal Static Standing: Good Dynamic Standing: Fair Assessment: Patient requires the use of a front wheeled walker to facilitate energy conservation and increased ability of walking.? However patient states that he does not need to walk too far inside his house and will not need a front wheeled walker.? Patient will be seen by PT tomorrow morning to include stair training as patient has 10 steps at home.? Patient presents with clinical signs and symptoms consistent with current/admitting diagnoses that have resulted to mobility limitations, gait instability, generalized weakness, and overall ADL decline as demonstrated by the following impairment level findings: 1.? Decreased strength to? BUE/LE major muscle groups Impairments are contributing to the following functional limitations: 1.? Difficulty with ambulation without assistive device 2.? Difficulty with managing steps alone safely Goals: Goals X1 week 1. Supine-Sit independent NOT MET 2. Sit-Supine independent NOT MET 3. Sit-Stand independent NOT MET 4. Stand-Sit independent with no AD NOT MET 5. Bed-Chair independent with no AD NOT MET 6. Chair-Bed independent with no AD NOT MET 7. Independent gait on level surface with use of no AD for at least 100feet without report of pain nor dyspnea NOT MET 8. Independent stair negotiation while holding onto B rails for at least 10steps without report of pain nor dyspnea NOT MET 9. Independent with home exercise program NOT MET 10. Good static and dynamic standing balance/tolerance NOT MET DISCHARGE RECOMMENDATIONS: May benefit from the use of a front wheeled walker but patient is resistant to said recommendation.? Patient will benefit from home health PT services in order to progress mobility level using least restrictive assistive ambulatory device, assess home safety, identify additional equipment needs, and establish a functional maintenance program that will increase ability of patient to remain at home. TREATMENT CODE/TIME: ME Thank you for the opportunity to participate in the care of this patient. Sinai Morrow PT, DPT, CLT [facility] [place], [place]
[2022-01-03 15:52] LABS: Streptococcus Pneumoniae Ag, U Negative (Negative)
== END 2022-01-02 15:35 | disposition home health service (06) | DRG 291 ==
LOC: ER 16:54 → MS 18:34
PROVIDERS: Internal Medicine; Admitting Provider Family Medicine; Emergency Provider Emergency Medicine; PCP Family Medicine; Visit Provider Family Medicine
DX: I50.813 Acute on chronic right heart failure (principal); J18.9 Pneumonia, unspecified organism; C34.91 Malignant neoplasm of unspecified part of right bronchus or lung; I50.1 Left ventricular failure, unspecified; I48.92 Unspecified atrial flutter; D68.9 Coagulation defect, unspecified; K76.1 Chronic passive congestion of liver; E16.2 Hypoglycemia, unspecified; I10 Essential (primary) hypertension; E78.5 Hyperlipidemia, unspecified; Z87.891 Personal history of nicotine dependence; Z79.899 Other long term (current) drug therapy; Z79.01 Long term (current) use of anticoagulants
CPT/HCPCS: 36415; 36416; 71275; 80048; 80053; 80076; 80307; 82962; 83516; 84145; 86704; 86709; 86803; 87077; 87340; 87449; 87635; 93005; 93306; 96374; 97162; 97530; 99285; U0005; 70450; 71045; 72125; 74177; 76705; 81003; 81015; 82140; 83735; 83880; 84484; 85025; 85379; 85610; 85730; 86038; 86255; 87070; 87086; 87186; 87205; 87899; 93010; 99223; 99232; 99233; J0132; J0696; J1940; J1941; J3430; J3480; J3490

== ENCOUNTER 2022-01-23 04:24 | Outpatient (RCR) | payer MEDICARE, SELFPAY ==
[2022-01-23 11:02] LABS: Abs Immature Grans 0.03 10^3/uL (0.0-0.06); Absolute Basophil Count 0.04 10^3/uL (0.0-0.2); Absolute Eosinophil Count 0.06 10^3/uL (0.0-0.7); Absolute Lymphocyte Count 0.64 10^3/uL (1.2-3.4); Absolute Monocyte Count 1.23 10^3/uL (0.1-0.8); Absolute Neutrophil Count 7.33 10^3/uL (1.2-6.7); Basophils % 0.4; Eosinophils % 0.6; HCT 48.3 % (40.0-50.0); HGB 15.4 g/dL (13.5-17.5); Immature Grans % 0.3; Lymphocytes % 6.9; MCHC 31.9 % (32.0-36.0); MCV 100.2 fL (80-95); Monocytes % 13.2; Neutrophils % 78.6; Platelet Count 216 10^3/uL (130-400); RBC 4.82 10^6/uL (4.36-5.78); RDW 14.5 % (11.8-14.1); WBC 9.33 10^3/uL (4.4-10.8)
[2022-01-23 11:26] LABS: ALT 77 U/L (16-63); AST 48 U/L (15-37); Albumin 3.3 g/dL (3.4-5.0); Alkaline Phosphatase 182 U/L (46-116); Anion Gap 3.9 mmol/L (3-11); BUN 39 mg/dL (7-18); Bilirubin, Total 0.9 mg/dL (0.2-1.0); CO2 33.1 mmol/L (21.0-32.0); CREATININE 1.5 mg/dL (0.70-1.30); Calcium 9.8 mg/dL (8.5-10.1); Chloride 98 mmol/L (98-107); Estimated GFR 45.03 (mL/min/1.73m2); FREE T4 1.19 ng/dL (0.76-1.46); Glucose 88 mg/dL (74-106); Magnesium 2.2 mg/dL (1.8-2.4); Potassium 5.6 mmol/L (3.5-5.1); Sodium 135 mmol/L (136-145); TSH 2.21 uIU/mL (0.36-3.74); Total Protein 7.5 g/dL (6.4-8.2)
== END 2022-01-28 23:59 | disposition home or self-care (01) ==
LOC: INF 04:24
PROVIDERS: PCP Family Medicine; Visit Provider Internal Medicine Medical Oncology
DX: C34.11 Malignant neoplasm of upper lobe, right bronchus or lung (principal); Z79.899 Other long term (current) drug therapy
CPT/HCPCS: 36415; 80053; 83735; 84439; 84443; 85025

== ENCOUNTER 2022-01-27 11:42 | Outpatient (CLI) | payer MEDICARE, SELFPAY ==
--- NOTE | 2022-01-27 11:30 | RT.EKG_ITS ---
APPROVED REPORT Exam: Resting ECG Reason for Exam: atrial flutter Patient Location: O HR:119 bpm ECG Measurements Heart Rate 119 AXIS HI 140 P 0 QRSd 165 QRS 111 QT 370 T -41 QTc 521 Conclusion Probable atrial flutter..rate> 99 RBBB and LPFB...QRSd >120mS, axis(90,210)
== END 2022-01-27 11:43 | disposition home or self-care (01) ==
LOC: DI.CARD 11:43
PROVIDERS: PCP Family Medicine; Visit Provider Internal Medicine Cardiovascular Disease
DX: I48.92 Unspecified atrial flutter (principal)
CPT/HCPCS: 93010

== ENCOUNTER → 2022-01-27 12:38 | Outpatient (BNVA) | payer MEDICARE, SELFPAY | PROVIDERS: PCP Family Medicine; Referring Provider Family Medicine; Visit Provider Internal Medicine Cardiovascular Disease | DX: K72.90 Hepatic failure, unspecified without coma (principal); C34.91 Malignant neoplasm of unspecified part of right bronchus or lung; I10 Essential (primary) hypertension; I50.813 Acute on chronic right heart failure; I48.92 Unspecified atrial flutter | CPT/HCPCS: 93005; 99203; 99214 ==

== ENCOUNTER → 2022-02-23 13:40 | Outpatient (BNVA) | payer MEDICARE, SELFPAY | PROVIDERS: PCP Family Medicine; Referring Provider Family Medicine; Visit Provider Internal Medicine Cardiovascular Disease | DX: I50.813 Acute on chronic right heart failure (principal); I48.92 Unspecified atrial flutter; C34.91 Malignant neoplasm of unspecified part of right bronchus or lung; G25.0 Essential tremor | CPT/HCPCS: 99214; 99213 ==

== ENCOUNTER → 2022-04-10 10:21 | Outpatient (BNVA) | payer MEDICARE, SELFPAY | PROVIDERS: PCP Family Medicine; Referring Provider Family Medicine; Visit Provider Internal Medicine Cardiovascular Disease | DX: R42 Dizziness and giddiness (principal); I48.92 Unspecified atrial flutter; I10 Essential (primary) hypertension; C34.91 Malignant neoplasm of unspecified part of right bronchus or lung | CPT/HCPCS: 99214; 99213 ==

== ENCOUNTER 2022-04-24 02:42 | Outpatient (RCR) | payer MEDICARE, SELFPAY ==
[2022-04-24 14:43] LABS: Abs Immature Grans 0.02 10^3/uL (0.0-0.06); Absolute Basophil Count 0.07 10^3/uL (0.0-0.2); Absolute Lymphocyte Count 0.77 10^3/uL (1.2-3.4); Basophils % 0.8; Eosinophils % 2.3; HCT 39.7 % (40.0-50.0); HGB 12.7 g/dL (13.5-17.5); Immature Grans % 0.2; MCH 33.2 pg (27.0-33.0); MCV 104 fL (80-95); MPV 9.3 fL (8.0-11.0); Monocytes % 11.7; Platelet Count 316 10^3/uL (130-400); RBC 3.82 10^6/uL (4.36-5.78); RDW-SD 53.9 fL; WBC 8.56 10^3/uL (4.4-10.8)
[2022-04-24 15:10] LABS: ALT 23 U/L (16-63); AST 27 U/L (15-37); Albumin 3.1 g/dL (3.4-5.0); Alkaline Phosphatase 184 U/L (46-116); Anion Gap 4.3 mmol/L (3-11); BUN 20 mg/dL (7-18); Bilirubin, Total 0.7 mg/dL (0.2-1.0); CO2 29.7 mmol/L (21.0-32.0); CREATININE 1.2 mg/dL (0.70-1.30); Calcium 9.2 mg/dL (8.5-10.1); Chloride 107 mmol/L (98-107); Estimated GFR 58.11 (mL/min/1.73m2); FREE T4 1.16 ng/dL (0.76-1.46); Glucose 93 mg/dL (74-106); Potassium 4.1 mmol/L (3.5-5.1); Sodium 141 mmol/L (136-145); Total Protein 7.3 g/dL (6.4-8.2)
== END 2022-04-30 23:59 | disposition home or self-care (01) ==
LOC: INF 02:42
PROVIDERS: PCP Family Medicine; Visit Provider Internal Medicine Medical Oncology
DX: C34.11 Malignant neoplasm of upper lobe, right bronchus or lung (principal); Z79.899 Other long term (current) drug therapy
CPT/HCPCS: 36415; 80053; 83735; 84439; 84443; 85025

== ENCOUNTER → 2022-07-17 09:03 | Outpatient (BNVA) | payer MEDICARE, SELFPAY | PROVIDERS: PCP Family Medicine; Visit Provider Internal Medicine Cardiovascular Disease | DX: I48.92 Unspecified atrial flutter (principal); I10 Essential (primary) hypertension | CPT/HCPCS: 93005; 99214 ==

== ENCOUNTER 2022-07-17 09:27 | Outpatient (CLI) | payer MEDICARE, SELFPAY ==
--- NOTE | 2022-07-17 09:15 | RT.EKG_ITS ---
APPROVED REPORT Exam: Resting ECG Reason for Exam: a flutter Patient Location: O HR:145 bpm ECG Measurements Heart Rate 145 AXIS GA [id number] P [id number] QRSd 142 QRS 157 QT 318 T -8 QTc 494 Conclusion Atrial flutter, rate uncontrolled Right axis deviation Right bundle branch block
== END 2022-07-17 09:28 | disposition home or self-care (01) ==
LOC: DI.CARD 09:35
PROVIDERS: PCP Family Medicine; Visit Provider Internal Medicine Cardiovascular Disease
DX: I48.92 Unspecified atrial flutter (principal); I45.19 Other right bundle-branch block
CPT/HCPCS: 93010

== ENCOUNTER 2022-08-21 12:55 | Outpatient (RCR) | payer MEDICARE, SELFPAY ==
[2022-08-21 13:39] LABS: Abs Immature Grans 0.04 10^3/uL (0.0-0.06); Absolute Basophil Count 0.03 10^3/uL (0.0-0.2); Absolute Eosinophil Count 0.15 10^3/uL (0.0-0.7); Absolute Lymphocyte Count 0.94 10^3/uL (1.2-3.4); Absolute Monocyte Count 0.82 10^3/uL (0.1-0.8); Absolute Neutrophil Count 6.01 10^3/uL (1.2-6.7); Basophils % 0.4; Eosinophils % 1.9; HCT 41.6 % (40.0-50.0); HGB 13.5 g/dL (13.5-17.5); Immature Grans % 0.5; Lymphocytes % 11.8; MCH 32.8 pg (27.0-33.0); MCHC 32.5 % (32.0-36.0); MCV 101 fL (80-95); MPV 10.3 fL (8.0-11.0); Monocytes % 10.3; Neutrophils % 75.1; Platelet Count 214 10^3/uL (130-400); RBC 4.12 10^6/uL (4.36-5.78); RDW 13.4 % (11.8-14.1); RDW-SD 50.4 fL; WBC 7.99 10^3/uL (4.4-10.8)
[2022-08-21 14:07] LABS: ALT 24 U/L (16-63); AST 24 U/L (15-37); Albumin 3.5 g/dL (3.4-5.0); Alkaline Phosphatase 105 U/L (46-116); Anion Gap 7.2 mmol/L (3-11); BUN 20 mg/dL (7-18); Bilirubin, Total 0.6 mg/dL (0.2-1.0); CO2 27.8 mmol/L (21.0-32.0); Calcium 9.1 mg/dL (8.5-10.1); Chloride 106 mmol/L (98-107); Estimated GFR 75.61 (mL/min/1.73m2); FREE T4 0.99 ng/dL (0.76-1.46); Glucose 100 mg/dL (74-106); Potassium 4.4 mmol/L (3.5-5.1); Sodium 141 mmol/L (136-145); TSH 1.41 uIU/mL (0.36-3.74); Total Protein 7.3 g/dL (6.4-8.2)
== END 2022-08-30 23:59 | disposition home or self-care (01) ==
LOC: INF 12:55
PROVIDERS: PCP Family Medicine; Visit Provider Internal Medicine Medical Oncology
DX: C34.11 Malignant neoplasm of upper lobe, right bronchus or lung (principal); Z79.899 Other long term (current) drug therapy
CPT/HCPCS: 36415; 80053; 84439; 84443; 85025

== ENCOUNTER → 2022-10-16 09:00 | Outpatient (BNVA) | payer MEDICARE, SELFPAY | PROVIDERS: PCP Family Medicine; Referring Provider Family Medicine; Visit Provider Internal Medicine Cardiovascular Disease | DX: I48.92 Unspecified atrial flutter (principal); I10 Essential (primary) hypertension; I50.813 Acute on chronic right heart failure | CPT/HCPCS: 99213 ==

== ENCOUNTER → 2023-04-17 08:53 | Outpatient (BNVA) | payer MEDICARE, SELFPAY | PROVIDERS: PCP Family Medicine; Referring Provider Family Medicine; Visit Provider Internal Medicine Cardiovascular Disease | DX: I11.0 Hypertensive heart disease with heart failure (principal); I48.92 Unspecified atrial flutter; I50.813 Acute on chronic right heart failure | CPT/HCPCS: 99213 ==

== ENCOUNTER 2024-01-15 07:50 | Outpatient (CLI) | payer MEDICARE, SELFPAY ==
--- NOTE | 2024-01-15 07:45 | RT.EKG_ITS ---
APPROVED REPORT Exam: Resting ECG Reason for Exam: a flutter Patient Location: O HR:53 bpm ECG Measurements Heart Rate 53 AXIS ID 202 P 61 QRSd 140 QRS 99 QT 460 T 16 QTc 432 Conclusion Sinus rhythm...normal P axis, V-rate 50- 99 Probable left atrial enlargement...P >50mS, <-0.10mV V1 RBBB and LPFB...QRSd >120mS, axis(90,210)
== END 2024-01-15 07:51 | disposition home or self-care (01) ==
LOC: DI.CARD 07:51
PROVIDERS: PCP Family Medicine; Visit Provider Internal Medicine Cardiovascular Disease
DX: I48.92 Unspecified atrial flutter (principal)
CPT/HCPCS: 93010

== ENCOUNTER → 2024-01-15 08:59 | Outpatient (BNVA) | payer MEDICARE, SELFPAY | PROVIDERS: PCP Family Medicine; Referring Provider Family Medicine; Visit Provider Internal Medicine Cardiovascular Disease | DX: I48.92 Unspecified atrial flutter (principal); I50.813 Acute on chronic right heart failure; I10 Essential (primary) hypertension | CPT/HCPCS: 93005; 99213 ==

== ENCOUNTER → 2024-11-10 14:14 | Outpatient (BNVA) | payer MEDICARE, SELFPAY | PROVIDERS: PCP Family Medicine; Referring Provider Family Medicine; Visit Provider Registered Nurse | DX: I48.92 Unspecified atrial flutter (principal); I50.813 Acute on chronic right heart failure | CPT/HCPCS: 99215 ==

== ENCOUNTER → 2025-09-18 12:19 | Outpatient (BNVA) | payer MEDICARE, SELFPAY | PROVIDERS: PCP Family Medicine; Referring Provider Family Medicine; Visit Provider Internal Medicine Cardiovascular Disease | DX: I48.92 Unspecified atrial flutter (principal); Z79.01 Long term (current) use of anticoagulants | CPT/HCPCS: 99213 ==